=== PATIENT | male | born 1970 | race Caucasian/White ===

== ENCOUNTER 2020-06-20 19:13 | Inpatient (IN) | payer MEDICAID, OTHER ==
[~2020-06-20] VITALS: Ht 167.6 cm; Wt 59.0 kg
[2020-06-20 19:16] VITALS: BP 106/61
[2020-06-20 19:38] LABS: ABSOLUTE NEUTROPHILS 11.8 thou/uL (1.4-8.2); BASOPHILS 0.2 % (0.0-2.0); EOSINOPHILS 0.1 % (0.0-3.0); HEMATOCRIT 40.6 % (42.0-52.0); HEMOGLOBIN 13.8 gm/dL (14.0-18.0); MCH 30.4 pg (26.0-34.0); MCHC 34.1 g/dL (28.0-37.0); MCV 89.2 fL (80.0-100.0); MONOCYTES 2.1 % (1.0-8.0); PLATELET COUNT 210 thou/uL (150-400); POLYS 93.6 % (36.0-66.0); RBC 4.55 mil/uL (4.50-6.00); RDW 13.2 % (10.5-14.5); WBC 12.6 thou/uL (4.0-11.0)
[2020-06-20 19:53] LABS: ANION GAP 16 mmol/L (7-16); BUN 23 mg/dL (7-18); CHLORIDE 113 mmol/L (98-107); CO2 21 mmol/L (21-32); CREATININE 1.9 mg/dL (0.7-1.3); GLUCOSE 143 mg/dL (74-106); POTASSIUM 3.8 mmol/L (3.5-5.1); SODIUM 150 mmol/L (136-145)
[2020-06-20 19:54] LABS: APTT 22.4 Seconds (24.5-32.8); INR 1.2; PROTIME 11.9 Seconds (9.3-11.4)
[2020-06-20 19:59] LABS: ALBUMIN 4.7 g/dL (3.4-5.0); MAGNESIUM 2.2 mg/dL (1.8-2.4); SGOT 20 U/L (15-37); SGPT 23 U/L (30-65); TOTAL BILIRUBIN 1.2 mg/dL (0.2-1.0); TOTAL PROTEIN 8.5 g/dL (6.4-8.2); TROPONIN-I <0.06 ng/mL (<0.06)
[2020-06-21 00:34] LABS: URINE BILIRUBIN NEGATIVE (Negative); URINE BLOOD NEGATIVE (Negative); URINE CLARITY CLEAR; URINE COLOR YELLOW; URINE GLUCOSE-RANDOM* NEGATIVE (Negative); URINE KETONES 1+ (Negative); URINE LEUKOCYTES-REFLEX NEGATIVE (Negative); URINE NITRITE-REFLEX NEGATIVE (Negative); URINE PROTEIN (DIPSTICK) NEGATIVE (Negative); URINE SPECIFIC GRAVITY >= 1.030 (1.005-1.035); URINE UROBILINOGEN 0.2 E.U./dl (0.2-1.0)
[2020-06-21 00:54] LABS: AMP/METHAMP Negative (Negative); BARBITURATES Negative (Negative); BENZODIAZEPINES Negative (Negative); COCAINE Negative (Negative); METHADONE Negative (Negative); OPIATES Negative (Negative); PCP Negative (Negative)
[2020-06-21 05:36] LABS: HEMATOCRIT 33.6 % (42.0-52.0); MCH 30.8 pg (26.0-34.0); MCHC 34.1 g/dL (28.0-37.0); MCV 90.3 fL (80.0-100.0); RBC 3.72 mil/uL (4.50-6.00); RDW 13.5 % (10.5-14.5); WBC 9.4 thou/uL (4.0-11.0)
[2020-06-21 05:48] LABS: CALCIUM 7.9 mg/dL (8.5-10.1); CREATININE 1.1 mg/dL (0.7-1.3); POTASSIUM 3.7 mmol/L (3.5-5.1)
[2020-06-21 06:01] LABS: HEMOGLOBIN 11.5 gm/dL (14.0-18.0)
[2020-06-21 10:36] VITALS: BP 89/54
--- NOTE | 2020-06-21 17:43 | NUR ---
VERONICA CASILLAS (MOM) CALLED WANTING COVID RESULTS, ADVISED OF NEGATIVE RESULTS, PT WANTS TO KNOW IF THIS MEANS THEY CAN VISIT, ADVISED WE'D FOLLOW UP WITH ADMITTING DOCTOR TO FIND OUT
[2020-06-21 18:15] VITALS: BP 81/47
[2020-06-21 19:39] VITALS: BP 111/66
[2020-06-21 20:00] VITALS: BP 95/56
[2020-06-22 03:27] VITALS: BP 96/61
--- NOTE | 2020-06-22 06:30 | NUR ---
RECIEVED CARE OF PT FROM ED, UPON ARRIVAL TO UNIT PT ALERT FOLLOW COMMAND, BUT REMAIN NON-VERBAL WHEN ASK QUESTIONS, BOX MEAL GIVEN, PT ATE 100 %. IV FLUIDS INFUSING WELL. CALLED AND TALKED WITH MOTHER IN DETAIL IN OBTAINING DATA BASE. ASSESSMENT COMPLETED, PT AWAKE THROUHGOUT HOURLY ROUNDS WATCHING TV, CONTINUE NOT TO VERBALIZED WHEN ASKING QUESTIONS, BUT PT WILL EAT AND DRINK WHEN PLACED ON BEDSIDE TABLE. BED ALARM ON FOR SAFETY. NO ACTIVE BLEEDDING NOTED NO STOOL THIS SHIFT.
[2020-06-22 08:06] VITALS: BP 102/60
--- NOTE | 2020-06-22 09:07 | EKG ---
[facility] [place] [address] ELECTROCARDIOGRAM REPORT Name: VINNYBIRD Room #: 356-P ADM IN M.R.#: [id number] Admission: 06/20/20 Attend Phys: Bird Abbasi MD Discharge: Date of : 72 Report #: [id number] THIS REPORT FOR: cc: BHAVNA - Sarah family physician/PCP BHAVNA - No family physician/PCP Tito Maynard MD ~ THIS REPORT FOR: //name// [facility] ED Test Date: 2020-06-20 Test Time: 19:54:56 Pat Name: BIRD CASILLAS Department: Patient ID: SJOMO- Room: Gender: Plumber Supervisor: [facility] : 1970 Requested By: Juan Escobedo Order Number: [id number] MD: iTto Maynard Measurements Intervals [place] Rate: 92 P: 64 KS: 126 QRS: 55 QRSD: 86 T: -73 QT: 357 QTc: 442 Interpretive Statements Sinus rhythm Probable LVH with secondary repol abnrm No previous ECG available for comparison Electronically Signed On 06-22-2020 9:06:59 CDT by Tito Maynard [email or web address] <ELECTRONICALLY SIGNED> By: Tito Maynard MD 06/22/20905 53 53 Tito Maynard MD /NORMA
--- NOTE | 2020-06-22 09:24 | NUR ---
Recieved VM from [facility] die lay out worker for this patient and to return call to her at [phone]. Notified SW on case.
[2020-06-22 10:58] LABS: HEMATOCRIT 32.8 % (42.0-52.0); MCH 30.6 pg (26.0-34.0); MCHC 33.4 g/dL (28.0-37.0); MCV 91.6 fL (80.0-100.0); RBC 3.58 mil/uL (4.50-6.00); WBC 7.4 thou/uL (4.0-11.0)
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
[2020-06-22 16:37] VITALS: BP 105/67
--- NOTE | 2020-06-22 16:52 | NUR ---
PATIENT WILL BE TRANSFERED TO THE FOURTH FLOOR THIS PM. HE HAS A FLAAT AFFECT AND DOES NOT REPLY OR RESPONDS TO QUESTIONS. HE SLEEPS WAKES UP HAVE A DRINK, WATCHES TV AND CAN BE SEEN GIGGLING AT TIME. BUT HE WILL NOT ENGAGE IN ANY DISCUSSION WITH NURSE. RESPIRAITONS ARE NON LABORED. PLEASANT WITH CARES.
[2020-06-22 20:07] VITALS: BP 109/68
--- NOTE | 2020-06-23 02:39 | NUR ---
PT ARRIVED TO THE FLOOR AT 2004. PT IS ALERT TO SELF. PT IS NON VERBAL. VSS. PT IS UNABLE TO VOICE IF HE IS IN PAIN. PT IS ON ROOM AIR. PT HAS A RENEE. YELLOW URINE. PT IS INCONTINENT. PT HAS NOT GOTTEN UP YET. PT HAS PANTOPROZOLE HANGING IN THE ROOM. PT HAS BEEN NPO SINCE MIDNIGHT. I SPOKE WITH PT'S MOTHER AND UPDATED HER. CALLED PT'S MOTHER FROM THE ROOM. PT DOES SAY HELLO TO HER BUT OTHER THAN THAT SAYS NOTHING. I WAS INFORMED THAT THE PT REFUSED THE BOWEL PREP. PT IS ASLEEP IN THE ROOM. WILL CONTINUE TO MONITOR.
[2020-06-23 04:35] VITALS: BP 107/70
[2020-06-23 06:11] LABS: HEMATOCRIT 35.2 % (42.0-52.0); HEMOGLOBIN 11.9 gm/dL (14.0-18.0); MCH 30.4 pg (26.0-34.0); MCHC 33.6 g/dL (28.0-37.0); MCV 90.2 fL (80.0-100.0); RBC 3.9 mil/uL (4.50-6.00); RDW 13.4 % (10.5-14.5)
[2020-06-23 07:17] LABS: ALBUMIN 3.1 g/dL (3.4-5.0); POTASSIUM 3.3 mmol/L (3.5-5.1); TOTAL BILIRUBIN 1.3 mg/dL (0.2-1.0); TOTAL PROTEIN 6.3 g/dL (6.4-8.2)
--- NOTE | 2020-06-23 07:38 | NUR ---
I AGREE WITH ABOVE INSPECTOR TOOL NURSING ASESSMENT AND CHARTING.
[2020-06-23 07:44] VITALS: BP 107/62
--- NOTE | 2020-06-23 09:30 | NUR ---
pt out of room for test/procedure with gi. discussed with hospitalist this am, no anticipated dc over the weekend. cm team passed on (aps worker said not be in agreement with pt returning back with his mom. they said they can get guardianship process started in [place], pretty quick or at least temp guardianship. mom has information to contact personal injury attorney or [place] legal service). dcp: here through the weekend.
[2020-06-23 16:39] VITALS: BP 97/60
--- NOTE | 2020-06-23 19:25 | NUR ---
Received awake on bed. Pt with autism, assisted in ADLs; tried to converse with patient several times but not responding back- fully awake and rousable. On MS, not on telemtry; no signs of chest pain, crushing sensation and heaviness. On room air. Vital signs stable. On nothing per orem; mouth care done. Not on blood sugar monitoring. Incontinent of bowel-checked frequently and changed as needed. With mayes in place- output measured and recorded accordingly; draining well; jeanie care done, jeanie area with redness, skin intact. With 1/2 NS at 80cc/hr, infusing well at L FA- wrapped in coban; with protonix drip running at 25cc/hr as well. Pt scheduled for EGD/Colonoscopy today- as per night RN, pt did not tolerate bowel prep from yesterday- GI RN ADONAY and GI MARINE SURVEYOR Sergio informed re: this as well. Assisted in ADLs. Pt turned on his sides regularly. Consent for procedure obtained from mother via phone, verified by charge nurse. Fetched by GI staff, brought down via bed. Brought back from GI, tolerated procedure well; transferred to room safely. Pt visited by his mother this afternoon- update given; re-informed her about visiting policy as well, requested to talk to - GUSTAVO Arias informed. Night RN informed re: pt's mom's contact number if ever they need to contact her. Pt tolerating meals; no nausea, no vomiting and no abdominal pain noted. To continue monitoring patient.
[2020-06-23 19:44] VITALS: BP 101/62
--- NOTE | 2020-06-24 06:00 | NUR ---
Pt. rested quietly during the night when checked on during frequent rounds. He is alert, but non-verbal. He spent most of the night watching television and was observed laughing at the tv programs. Bed alarm is on.
[2020-06-24 07:40] VITALS: BP 99/61
--- NOTE | 2020-06-24 11:16 | NUR ---
Received awake on bed. Due medications given as prescribed. Tried to converse with patient several times, not talking back; kept patient comfortable. On MS, not on telemtry; no signs of chest pain, crushing sensation and heaviness noted. On room air. Vital signs stable. On regular diet- tolerating well; assisted in setting up, able to eat by himself; no nausea, no vomiting and no abdominal pain noted. Incontinent of bowel, checked frequently and changed as needed. With mayes in place- draining well, output measured and recorded accordingly; jeanie-care done- with redness noted, skin intact. With 1/2 NS at 80cc/hr, infusing well at L FA, with ongoing protonix drip at 25cc/hr. Assisted in ADLs. Able to turn self in bed. Verified with pt's mother yesterday re: home medication- pt not taking any meds at home, verified pharmacy on record- it remains the same as per pt's mom. Falls bundle in place. As per CM, pt most likely to stay here over the weekend, possible for guardianship application. To continue monitoring patient.
[2020-06-24 16:45] VITALS: BP 118/70
[2020-06-24 20:30] VITALS: BP 98/57
--- NOTE | 2020-06-25 00:51 | NUR ---
ASSUMED CARE OF PT AT 1900. PT IS ALERT AND NONRESPONSIVE. PT HAS BEEN SLEEPING SINCE THE START OF THE SHIFT. VSS. AFEBRILE. DOES NOT APPEAR TO BE IN ANY PAIN OR DISCOMFORT. RENEE IN PLACE AND DRAINING. FALL PRECAUTIONS ARE IN PLACE, CALL LIGHT IS WITHIN REACH. WILL CONTINUE TO MONITOR.
[2020-06-25 07:30] VITALS: BP 106/65
[2020-06-25 14:58] VITALS: BP 108/55
[2020-06-25 19:12] VITALS: BP 98/59
--- NOTE | 2020-06-25 19:59 | NUR ---
Alert and silent. talked to the mom. hardly ate anything for breakfast and lunch. had supper when mom was at the bed side. no sign of pain, no n/v.
--- NOTE | 2020-06-26 03:44 | NUR ---
ASSUMED CARE OF PT AT 1900. PT IS AWAKE AND ALERT BUT NONRESPONSIVE TO QUESTIONS. DID HOWEVER ANSWER YES TO WANTING A SNACK BEFORE BEDTIME. THIS WAS ONLY TIME PT COMMUNICATED. ACCIDENTLY REMOVED IV TO LEFT FOREARM WITH CATHETER INTACT. REPLACED IV. CURRENTLY PT IS LYING IN HIS BED AND APPEARS TO BE SLEEPING. FALL PRECAUTIONS ARE IN PLACE, CALL LIGHT IS WITHIN REACH. WILL CONTINUE TO MONITOR.
[2020-06-26 05:54] LABS: HEMATOCRIT 35.5 % (42.0-52.0); HEMOGLOBIN 12.1 gm/dL (14.0-18.0); MCH 30.3 pg (26.0-34.0); MCHC 34.1 g/dL (28.0-37.0); MCV 88.9 fL (80.0-100.0); RBC 3.99 mil/uL (4.50-6.00); RDW 13.1 % (10.5-14.5); WBC 7.1 thou/uL (4.0-11.0)
[2020-06-26 06:02] LABS: CALCIUM 8.3 mg/dL (8.5-10.1); POTASSIUM 3.2 mmol/L (3.5-5.1)
[2020-06-26 07:33] VITALS: BP 107/64
--- NOTE | 2020-06-26 16:20 | NUR ---
Mom brought some documents, voicing that she had talked to Dr. Brooks earlier this morning, Dr. Brooks asked for those document. the staff called [phone], telling the responder that the documents would be in the chart. The responder claimed that he would pass the message to Dr. Brooks.
--- NOTE | 2020-06-26 16:22 | NUR ---
KUN spoke with Ligia at [facility] to follow up on pt's open case. Per Ligia, pt's mother has contacted an ip attorney to begin the guardianship process in [place]. KUN faxed psych consult and progress notes to APS for review. Ligia states that she and her team are meeting today to discuss pt's case. APS is stating that pt should not return to his mother's care at this time due to his recent elopements. APS is working with pt's mother to also apply for [place] Medicaid and will assist with placement. Will need guardianship and Medicaid application in process in order to start looking for placement. KUN discussed case with attending physician. KUN is following to assist as needed with discharge planning.
[2020-06-26 19:31] VITALS: BP 112/69
--- NOTE | 2020-06-26 19:43 | NUR ---
Patient did not have breakfast or lunch no matter how the staff tried to get him eat. had most of the dinner and all the snacks when the mom was here.
[2020-06-27 01:44] LABS: AMP/METHAMP Negative (Negative); BARBITURATES Negative (Negative); BENZODIAZEPINES Negative (Negative); COCAINE Negative (Negative); METHADONE Negative (Negative); OPIATES Negative (Negative); PCP Negative (Negative)
--- NOTE | 2020-06-27 02:35 | NUR ---
CARE ASSUMED AT 1900 PATIENT WAS IN BED WATCHING TV. NO S/S OF PAIN OR DISCOMFORT NOTED. PATIENT PULLING OUT IV X2. PHLEBOTOMY MANAGER NOTIFIED NEW ORDER OF P.O PROTONIX. PATIENT WILL BE ENCOURAGED FLUIDS.URINE COLLECTED FOR LAB. CATH CARE DONE. PATIENT IN BED AWAKE BREATHING REGULAR AND UNLABOURED.
--- NOTE | 2020-06-27 15:48 | NUR ---
Assumed patient care at 0715. Vital signs stable, LSCTA, ABD soft and non-tender, BS x's 4, skin is clean, dry and intact; he does not appear to be in any distress and or pain. Patient has not been wanting to eat, drink and/or take any po medications during this shift. Patient continues to be non-verbal. He has been resting in bed with eyes closed throughout this shift. Mother asked if she could come to visit patient and help to feed him, as he will eat for her (she would not be able to make it until after five this evening). This nurse asked Station Gateman, whom declined to allow this visit. Patient's mother was educated per this; verbalized an understanding. Will continue to monitor this patient.
--- NOTE | 2020-06-27 16:16 | NUR ---
GUSTAVO SPOKE WITH PT'S MOTHER THIS AM AND CONFIRMED THAT THE TWO NUMBERS WE HAVE LISTED FOR HER ARE THE BEST NUMBERS TO REACH HER. DR. FOOTE INDICATED THAT MOTHER HAD PROVIDED ASSESSMENT FROM 2019 AND BASED ON THAT, VISITS WITH PT, AND INFO FROM MOTHER DR. 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 GUSTAVO CALLED AND SPOKE WITH ANALISA WITH [facility] AND INDICATED THAT ABOVE. CM FAXED [facility]'S PROG NOTE FROM YESTERDAY WITH THIS INFORMATION. ANALISA INDICATED THAT THEY HAD DISCUSSED PURSUEING IDD WAIVER PROGRAM BUT THAT MIGHT NOT BE APPROPRIATE WITH NEUROCOG DX. SHE INIDCATED SHE HAD BEEN IN CONTACT WITH PT'S [facility] FOR INFO REGARDING IEP OR SERVICES SUPPORTS RELATED TO SPECIAL EDUCATION SERVICES. CM TO FOLLOW INDICATED WITH DC PLANNING.
[2020-06-27 19:46] VITALS: BP 89/59
[2020-06-27 20:00] VITALS: BP 90/60
--- NOTE | 2020-06-28 04:40 | NUR ---
Pt. rested quietly during the night when checked on during frequent rounds. He has spent about 50% of the shift watching tv in bed. Pt. is non-verbal. He is currently resting quietly in bed. Bed alarm is on.
[2020-06-28 07:27] VITALS: BP 100/64
[2020-06-28 15:35] VITALS: BP 77/51
[2020-06-28 18:02] VITALS: BP 91/53
[2020-06-28 19:35] VITALS: BP 94/57
--- NOTE | 2020-06-29 04:56 | NUR ---
Pt. rested quietly during the night when checked on during frequent rounds. He is non-verbal. Enjoys watching tv at intervals during the shift. Bed alarm is on.
[2020-06-29 07:34] VITALS: BP 94/59
[2020-06-29 15:28] VITALS: BP 98/61
--- NOTE | 2020-06-29 16:18 | NUR ---
PT WAS HAVING MRI OF HEAD THIS AFTERNOON. CM CALLED AND SPOKE WITH PT'T MOTHER REQUESTED NAME OF POLYSOMNOGRAPHIC TECHNICIAN THAT SHE IS WORKING WITH FOR GUARDIANSHIP. SHE INDICATED IT'S DAISY MCKEON . CM TO REACH OUT TO THEM WELL APS TO CONFIRM THEY ARE ASSISTING AND SEE IF THEY NEED ANY DOCUMENTATION.
--- NOTE | 2020-06-29 17:49 | NUR ---
ASSUMED CARE OF PATIENT AT SHIFT CHANGE. ASSESSMENT CHARTED. MEDS GIVEN PER MAR. VSS. PATIENT IS PLEASANT AND WATCHING TV; NON-VERBAL BUT SMILES AND RESPONDS WELL TO SNACKS. PATIENT HAD AN MRI TODAY; ONE TIME DOSE OF LORAZEPAM GIVEN TO PATIENT PRIOR TO PROCEDURE. PATIENT TURNS SELF. URINE OUTPUT ADEQUATE; RENEE INTACT. URINE HAS A FOUL ODOR. PATIENT IS ENCOURAGED TO DRINK MORE FLUIDS. PATIENT DOES NOT APPEAR IN ANY APPARENT PAIN. FALL PRECAUTIONS IN PLACE. WILL CONTINUE TO MONITOR
--- NOTE | 2020-06-29 22:30 | NUR ---
ASSUMED CARE OF PT AT 1900. PT IS AWAKE AND ALERT BUT IS NONRESPONSIVE VERBALLY. LOW DOSE ANTIPSYCHOTIC GIVEN DIRECTED AT HS. SPOKE TO PT MOTHER SHE CALLED FOR AN UPDATE. AT THIS TIME PT IS LYING IN HIS BED AND APPEARS TO BE WATCHING HIS TV. FALL PRECAUTIONS ARE IN PLACE, CALL LIGHT IS WITHIN REACH. WILL CONTINUE TO MONITOR.
[2020-06-30 07:16] VITALS: BP 94/45
--- NOTE | 2020-06-30 15:13 | NUR ---
Received awake on bed. Due medications given as prescribed, able to swallow meds w/o difficulty. On room air. Vital signs stable. On MS, not on telemetry; no signs of chest pain, crushing sensation,and heaviness. On regular diet, tolerating well; no vomiting, no nausea, no abdominal pain noted. With mayes in place- draining well; output measured and recorded accordingly. No IV access noted upon assessment- verified with Dr Khan- to leave off IV for now. Falls bundle in place. Pt turned on his sides regularly, with redness on his buttocks- skin intact. Assisted in ADLs. Assisted in eating and drinking, offered snacks from time to time. Pt seen and examined by Dr Khan, to discontinue IVF and removed mayes- removed mayes as per protocol; pt able to pass urine- incontinent of urine, checked frequently and changed as needed. To continue monitoring patient.
[2020-06-30 15:30] VITALS: BP 90/64
--- NOTE | 2020-06-30 15:54 | NUR ---
CM CALLED ANALISA WITH APS AND LEFT VM. CM CALLED THE ROAD MACHINE OPERATOR PT'S MOTHER IS WORKING WITH DAISY MCKEON HE INDICATED THAT HE HAD EMAILED PT'S MOTHER A STATUTORY FORM THAT NEEDS TO BE COMPLETED BY DR. FOOTE TO FILE PETITION FOR [place] GUARDIANSHIP. CM CALLED PT'S MOTHER AND SHE INDICATED THAT SHE WAS BRING THE FORM TO THE UNIT TODAY. CM NOTIFIED DR. FOOTE AND SHE INDICATED IT COULD BE PLACED IN [employer] MANA[employer] AND SHE WOULD COMPLETE IT FRIDAY. ROAD MACHINE OPERATOR INDICATED THAT SOON IT'S COMPLETED HE CAN FILE IT AND HOPEFULLY SET A COURT DATE IN THE NEXT 14-20 DAYS. CM TO FOLLOW UP WITH MOTHER TO SEE WHERE SHE WOULD LIKE REFERRALS SENT FOR POSSIBLE PLACEMENT BEGINING OF NEXT WEEK. PT WILL REMAIN HERE UNITL [place] GUARDIANSHIP AND MEDICAID ARE OBTAINED.
[2020-06-30 19:22] VITALS: BP 96/67
--- NOTE | 2020-07-01 02:26 | NUR ---
ASSUMED CARE OF PT AT 1900. PT IS ALERT AND AWAKE BUT DOES NOT RESPOND TO STAFF VERBALLY. PT IS IMPULSIVE THIS EVENING WITH TRYING TO GET UP OUT OF BED. INCONT OF URINE. BATH AND BED CHANGE OF LINENS DONE. FALL PRECAUTIONS ARE IN PLACE, CALL LIGHT IS WITHIN REACH. SPOKE WITH MOTHER THIS EVENING. SHE VOICES CONCERNS ABOUT PT NOT COMING BACK TO LIVE WITH HER. SHE ASKED TO SPEAK TO CM. WILL BE PASSING THIS ALONG TO DAY SHIFT. AT THIS TIME, PT IS IN HIS BED LYING DOWN AND APPEARS TO BE WATCHING TV. WILL CONTINUE TO MONITOR.
[2020-07-01 07:54] VITALS: BP 105/76
[2020-07-01 17:34] VITALS: BP 110/81
--- NOTE | 2020-07-01 19:19 | NUR ---
Received awake on bed. Due medications given as prescribed, able to swallo meds w/o difficulty. On room air. Vital signs stable. On regular diet- tolerating well; no nausea, no vomiting and no abdominal pain noted. On MS, not on telemetry; no signs of chest pain, crushing sensation and heaviness. Assisted and encouraged in eating and drinking, offered snacks from time to time. Assisted in ADLs. No IV noted upon assessment- physician ordered to leave it off, no need to re-insert IV for now. Incontinent of bowel and bladder- checked frequently and changed as needed. Falls bundle in place. Given patient a full bath, linen change today. Pt visited by his mother today- update given; she asked for a list of his current medications; telling RN that when his aunt talked to the patient he was telling different things and that he might be watching to much television during this hospital stay. She requested if pt can go on a wheelchair and go outside for fresh air with her- informed pt re: hospital protocol and visitation policy and acknowledged it. No complains and signs of pain observed. Able to turn on his sides. To continue monitoring patient.
[2020-07-01 19:50] VITALS: BP 87/51
--- NOTE | 2020-07-02 04:39 | NUR ---
ASSUMED CARE OF PT AT 1900. PT IS ALERT/AWAKE BUT DOES NOT RESPOND VERBALLY. NO S/S OF PAIN OR DISCOMFORT. VSS. FALL PRECAUTIONS ARE IN PLACE, CALL LIGHT IS WITHIN REACH. WILL CONTINUE TO MONITOR.
[2020-07-02 04:45] VITALS: BP 93/48
[2020-07-02 08:56] VITALS: BP 126/54
--- NOTE | 2020-07-02 14:54 | NUR ---
A gentleman who claimed was the patient's family friend talked to the staff, asked to transfer [facility] patient to another hospital. manager publishing Princess has been reported to, Payton voiced that she would call and talk to the gentleman ([phone]). Dr. Erin black, awaiting response.
--- NOTE | 2020-07-02 15:16 | NUR ---
The satff talked to Dr. Khan, Dr. Khan voiced that we would wait for Alma Delia ([phone]) to make decision what to do; the mom called the staff, asking for Alma Delia's phone number, the staff gave Alma Delia's number to her. The mom voiced that she was afraid [facility] would put the patient into some facility in [place], she preferred to have the son in [place], which was closer to her; she also voiced that she wanted the son to be in [facility] because that facility was closer.
[2020-07-02 15:38] VITALS: BP 112/66
[2020-07-02 19:46] VITALS: BP 92/59
--- NOTE | 2020-07-02 21:40 | NUR ---
PT RESTING IN BED, WATCHING FOOTBALL. PT COMPLIANT WITH HS MEDS. PT ATE ALL OF PUDDING FED TO HIM. PT SMILING WHILE EATING, THEN FLAT AFFECT. PT REMAINS INCONTINENT AND BED ALARM ON. PT IS NOT VERBAL.
[2020-07-03 05:08] VITALS: BP 95/65
[2020-07-03 07:27] VITALS: BP 77/58
[2020-07-03 16:31] VITALS: BP 91/62
--- NOTE | 2020-07-03 19:51 | NUR ---
Assumed pt care at 7am.Pt in bed sleeping most of the time till lunch time. Assessment completed.vss.Recieved call from pt's mom and family friend. Updates given.Pt finally woke up at noon and ate lunch.Ativan held at am and noon but given at dinner.Fall bundle in place for pt safety.Will continue to monitor.
[2020-07-03 19:59] VITALS: BP 102/54
[2020-07-04 06:59] VITALS: BP 102/58
--- NOTE | 2020-07-04 08:11 | NUR ---
progress pt slept all noc. incontinent of bowel and bladder making large amounts of urine and had a moderate sized soft brown formes stool. refused hs snack but did drink some tea with encouragement po meds given with small bite of applesauce. pt didnt interact with this nurse at all no eye contact, moaning or words. repositioned as needed pt able to reposition self when he wants. continue poc.
--- NOTE | 2020-07-04 09:18 | NUR ---
At 2:53 on Friday07/02/2020 I received a phone call from the nurse of the patient in room 442 requesting a return call to a gentlemen's threatening to bring the police and remove a patient. At approximately 2:53 I returned a call to this gentleman at [phone] who did not give his name and stated he was a family friend and that we were holding the patient against his will. This gentleman had me on speaker phone with the mother of the patient who agreed I could speak and I then explained that we were working with the [facility] shoe caser with contacted us and pursuing guardianship. I also explained that there has been no deemed power of document review attorney or guardian for this individual and they have not been deemed competent to make their own decisions. The gentleman continued and in a threatening tone to osmani the hospital and all members treating the patient as we were illegally holding the patient against his will. Again I reiterated we were following with the [facility] request of guardianship for the mother. The gentleman then began to tell me of all the family members he has that are Judges and everything we are doing is illegal. He then said he would have his attorneys be at [facility] on Friday07/04/2020 so they could physically remove the patient and transfer him to [facility] as the mother wants him to be in a [place] hospital. He wanted to know why the patient was in the hospital and the [place] side if he is a [place] resident? I explained to him that patients come to us from EMS and that we treat them accordingly. I then contacted Jessie Luke in-house legal services professional, and Steven Smith Director of Risk Management and explain all of above to be aware of the situation and will review the case again on Friday. I then contacted [facility] [employer] and notified them that a patient may be attempted to be forcibly removed from the hospital and security noted this. I then contacted the nurse to let her know of all of the above and to contact security immediately if this individual or any individual attempts to remove the patient from the hospital. Also on Friday07/02/2020 I learned that the nurse Miya had given my personal cell number to the mother who left a voicemail at 3:17 PM stating: "Hi this is Eleanor Eng, Bird Eng's mother. I just wanted you to understand I need to have him closer to where I live and if is he placed somewhere I want to make sure that it is [place]. I am concerned about several issues but I wanted you to know that my wish is to be in [facility] Thanks you goodbye". On Friday07/02/2020 I was able to reach he professor of social work on this case Brenda Toussaint at 5:44 PM and alerted her to the above and to submit on Friday a referral to [facility] if in agreement with the [facility] crime prevention worker. On Friday07/03/2020 at approximately [address] with attending Dr. Khan who stated he had just left the patients room with the Mother who was deeply apologetic for the previous days phone call stating this was not her intent to have the call go such array. Case Management will continue to follow the case and work within the confines and direction with the [facility].
--- NOTE | 2020-07-04 11:00 | NUR ---
GUSTAVO TAXT DR. FOOTE THIS AM AND REMINDED HER THAT STATUTORY FORM FROM FEED INSPECTION SUPERVISOR IS IN PT'S WALL REGIONAL COMMERCIAL SALES MANAGER FOR HER TO ASSIST IN COMPLETEING. CM CALLED AND SPOKE WITH ANALISA AT [facility]. CM NOTIFIED HER OF THE EXCHANGE BETWEEN MALE AND MOTHER WITH CM RISK OFFICER FRIDAY. CM ASKED IF SHE WAS AT ALL OPPOSED TO CM SEE IF [facility] WOULD ACCEPT PT IN TRANSFER PER MOTHER'S REQUEST. SHE INDICATED SHE WOULDN'T MIND. CM CALLED LIBRARY HISTORIAN AT [facility] AND FAXED FACESHEET FOR REVIEW. CM TO FOLLOW INDICATED WITH DC PLANNING.
[2020-07-04 14:56] VITALS: BP 101/64
[2020-07-04 20:10] VITALS: BP 101/68
--- NOTE | 2020-07-05 01:39 | NUR ---
ASSUMED PT CARE AT 1910. PT IS ALERT TO SELF. PT DOES NOT HAVE IV ACCESS. PT TAKES MEDICATION WHOLE. PT IS NON RESPONSIVE. PT IS INCONTINENT. PT WAS LAYING IN HIS BED WATCHING TELEVISION. PT IS SLEEPP IN HIS ROOM. WILL CONTINUE TO MONITOR.
[2020-07-05 07:23] VITALS: BP 80/54
[2020-07-05 15:36] VITALS: BP 95/64
--- NOTE | 2020-07-05 18:43 | NUR ---
PT IS AOX1, VSS, PT WAKES UP WATCHES TV. NO SIGNS OF S/S OF DISTESS. BED IN LOW POSITION. WILL CONTINUE TO MONITOR.
[2020-07-05 20:02] VITALS: BP 80/53
--- NOTE | 2020-07-06 03:41 | NUR ---
ASSUMED CARE OF PT AT 1900HRS. PT IS ALERT BUT IS NOT RESPONDING TO ANY QUESTIONS. WALL PRECAUTION IN PLACE. PT IS WATCHED CARTOONS ON TV MOST OF THE SHIFT. PT APPEARS TO BE COMFORTABLE. PT WAS INCT THIS SHIFT. PT HAS A SOFT BP BUT OTHER VSS. WILL CONTINUE TO MONITOR.
--- NOTE | 2020-07-06 10:53 | NUR ---
PT IS AOX1 TO SELF. PT REMAINS NONVERBAL TO STAFF, REFUSED TO WAKE UP TO EAT HIS BREAKFAST FOR NURSE. PT TOOK PILLS WITH A SMALL SIPS OF WATER. WILL CONTINUE TO MONITOR.
--- NOTE | 2020-07-06 14:40 | NUR ---
CM CHECKED IN WIHT DR. FOOTE THIS DAY AND SHE INDICATED THAT SHE WAS ALMOST FINISHED WITH THE STATUTORY PAPERWORK FOR THE PT'S LUG LOADER. ONCE COMPLETED CM TO FAX TO LUG LOADER. CM TO FOLLOW INDICATED WITH DC PLANNING.
[2020-07-06 19:27] VITALS: BP 115/74
--- NOTE | 2020-07-07 00:48 | NUR ---
ASSUMED CARE OF PT AT 1900. PT IS NONVERBAL. SHOWS NO S/S OF PAIN OR DISCOMFORT. SCHEDULED MEDICATION GIVEN DIRECTED. PT ATE A SNACK AT BEDTIME. AT THIS TIME, PT IS LYING IN HIS BED AND APPEARS TO BE SLEEPING. WILL CONTINUE TO MONITOR.
[2020-07-07 07:23] VITALS: BP 87/60
[2020-07-07 15:03] VITALS: BP 148/74; BP 97/69
--- NOTE | 2020-07-07 18:30 | NUR ---
ASSUMED CARE OF PATIENT AT SHIFT CHANGE. ASSESSMENT CHARTED. MEDS GIVEN PER MAR. VSS. PATIENT GOT UP TO BATHROOM TODAY SBA. PATIENT VOIDED AND HAD A BM ON THE TOILET BUT CAN ALSO BE INCONT AT TIMES. PATIENT GOT UP W PT TODAY AND WALKED AROUND UNIT; TOLERATED WELL. PATIENT VOICES NO OTHER NEEDS AND DOES NOT TO BE IN APPARENT DISTRESS. FALL PRECAUTIONS IN PLACE. WILL CONTINUE TO MONITOR.
--- NOTE | 2020-07-08 03:07 | NUR ---
PATIENT ALERT AND ORIENTED TO SELF. HOWEVER, HE UNDERSTANDS WHAT YOU SAY AND IS COOPERATIVE WITH CARE. NON VERBAL AND WILL NOT LOOK AT YOU WHEN YOU ARE TALKING. PATIENT HAS BEEN KNOWN TO GET OOB, HOWEVER, NOT DURING THIS NIGHT OF TIME OF NOTE. THIS NURSE SPOKE TO HIS MOTHER (AUNG CASILLAS) REGARDING HOW HE ATE DURING THE DAY AND TO MAKE SURE HE KNOWS SHE CALLED TONIGHT. THIS WAS RELAYED TO THE PATIENT. RESTING QUIETLY. WILL MONITOR.
[2020-07-08 07:46] VITALS: BP 93/63
[2020-07-08 13:01] VITALS: BP 93/63
--- NOTE | 2020-07-08 14:49 | NUR ---
PT IS DISORIENT, ALERT TO SELF ONLY, AND VSS. PT IS CONTINENT TO BOWEL AND BLADDER AND IMPULSIVE AND LAST BM YESTERDAY. PT DIET IS [facility] SOFT CHOPPED DIET. FALL PRECAUTIONS IN PLACE, WILL CONTINUE TO MONITOR.
[2020-07-08 15:50] VITALS: BP 91/62
[2020-07-08 20:34] VITALS: BP 92/60
[2020-07-09 07:17] VITALS: BP 100/66
--- NOTE | 2020-07-09 15:05 | NUR ---
Assumed pt care at 7am.Assessment completed. vss.Pt was drowsy most of the time but arousable.Pt took his am meds with breakfast.Ate 80% of meals served. Pt refused lunch and med.Pt still waiting for gardianship from court before placement.Fall bundle in place for pt safety.No distress s/s noted.Will continue to monitor.
[2020-07-09 16:25] VITALS: BP 93/62
[2020-07-09 20:00] VITALS: BP 103/58
--- NOTE | 2020-07-10 04:35 | NUR ---
PT IS ALERT TO SELF. PT IS NON VERBAL. PT DOES NOT RESPOND WHEN ASKED ABOUT PAIN. VITAL SIGNS STABLE. PT IS IMPULSIVE AND DOES NOT CALL OUT WHEN GETTING OUT OF BED. WILL CONTINUE TO MONITOR.
--- NOTE | 2020-07-10 07:27 | NUR ---
AGREE WITH ALL CHARTING BY MOISES JACOBS
[2020-07-10 15:01] VITALS: BP 102/69
--- NOTE | 2020-07-10 15:11 | NUR ---
DR. FOOTE HAD COMPLETED THE STATUTORY FORMS THIS AM. GUSTAVO HAD THEM SCANNED AND EMAILED THEM TO WASTEWATER ANALYST LAB ANALYST DAISY MCKEON AT [employer]. CM CALLED AND CONFIRMED HE HAD RECEIVED THEM. CM TO FOLLOW INDICATED WITH DC PLANNING.
[2020-07-10 19:40] VITALS: BP 93/62
--- NOTE | 2020-07-10 20:01 | NUR ---
ASSUMED PT CARE THIS AM. PT VITAL SIGNS STABLE. PT WAS NON-VERBAL ENTIRE SHIFT. PT RECEIVED MEDICATIONS THROUGH APPLESAUCE, AND HAD NO ISSUES TAKING THIS WAY. PT INCONTINENT, AND WAS CHANGED AND CLEANED DURING THE SHIFT. PT WALKED WITH OT TO BATHROOM AND USED BATHROOM FOR OT. BARRIER CREAM APPLIED TO BOTTOM. PT DID NOT CALL FOR ANYTHING DURING ENTIRETY OF SHIFT, BUT WAS CHECKED ON AT LEAST EVERY HOUR. NIGHT NURSE ENDORSED.
--- NOTE | 2020-07-11 02:42 | NUR ---
PATIENT NON VERBAL THIS SHIFT. PATIENT INCONTINENT PERICARE AND BARRIER CREAM APPLIED NEEDED. PATIENT ENCOURAGED FLUIDS.PATIENT IN BED NO S/S OF PAIN OR DISCOMFORT. PATIENT CALM AND COOPERATIVE WITH MEDS AND CARE THIS SHIFT.PATIENT IN BED ASLEEP AT THIS TIME BREATHING REGULAR AND UNLABOURED.
[2020-07-11 05:28] LABS: HEMATOCRIT 39.3 % (42.0-52.0); HEMOGLOBIN 13.1 gm/dL (14.0-18.0); MCH 29.5 pg (26.0-34.0); MCHC 33.3 g/dL (28.0-37.0); MCV 88.4 fL (80.0-100.0); RBC 4.44 mil/uL (4.50-6.00); RDW 13.7 % (10.5-14.5); WBC 6.8 thou/uL (4.0-11.0)
[2020-07-11 05:40] LABS: CALCIUM 9.3 mg/dL (8.5-10.1); CREATININE 1.1 mg/dL (0.7-1.3); MAGNESIUM 2.1 mg/dL (1.8-2.4); POTASSIUM 3.8 mmol/L (3.5-5.1)
[2020-07-11 07:31] VITALS: BP 107/66
--- NOTE | 2020-07-11 11:31 | NUR ---
Assumed pt care at 7am.Pt in bed sleeping and woke up at breakfast time. Assessment completed.vss.Rn fed pt at breakfast.Ate 100% including supplement. Dr Khan here,no new order noted.Pt still waiting for guardianship for placement.No distress s/s noted.Fall bundle in place.Will continue to monitor.
--- NOTE | 2020-07-11 15:41 | NUR ---
CM CALLED AND UPDATED PT'S MOTHER THIS AM. CM NOTIFIED HER THAT P[employer] HAD BEEN SENT TO SURVEY SUPERINTENDENT YESTERDAY. SHE INDICATED THAT SHE HAD RECEIVED LETTER FROM SOCIAL SECURITY THAT NEEDS SIGNED. SHE WILL BEING IT IN TOMORROW. CM TO FOLLOW INDICATED WITH DC PLANNING.
[2020-07-11 20:08] VITALS: BP 93/61
--- NOTE | 2020-07-12 06:53 | NUR ---
PROGRESS PT AWAKE BUT NON-VERBAL TOOK MEDS WITH SOME COAXING INCONTINENT OF BOWELS AND BLADDER VOIDED X 3 LAST NIGHT NO BM. VSS SKIN C/D/I NO SKIN BREAKDOWN NOTED. CONTINUE TO MONITOR.
[2020-07-12 08:00] VITALS: BP 83/56
--- NOTE | 2020-07-12 12:26 | NUR ---
Pt in bed sleeping on and off as usual.Assessment completed.vss but low bp noted. Pt was asymptomatic.Assisted with tray setup at breakfast. Ate 100% including ensure.Pt ambulated in hallways with therapist and ate ice cream after walking.Mom here to visit and updates given.Pt still waiting for guardianship from the court.No changes in status and no distress s/s noted. Will continue to monitor.
--- NOTE | 2020-07-12 15:18 | NUR ---
CM MET WITH PT'S MOTHER THIS AM. SHE PROVIDED CM WITH COPY OF PT'S SOCIAL SECURITY CARD AND INDICATED THAT ANALISA WITH APS HAD A COPY OF HIS CERTIFICATE CM TO REACH OUT TO HER TO GET COPY FOR [place] FOR USE IN [place]. PT'S MOM INDICATED THAT LAWER RENETTA ABDI WITH [employer] IS NEEDING CLINICAL DOCUMENTATION RELATED TO CRIMINAL CASE. SHE PROVIDED THEIR PHONE NUMBER CM CALLED AND EMAIL . CM CALLED AND GOT . CM TO ATTEMPT FOLLOW UP PC. CM TO FOLLOW INDICATED WITH DC PLANNING.
[2020-07-12 16:00] VITALS: BP 98/66
[2020-07-12 20:32] VITALS: BP 91/61
--- NOTE | 2020-07-13 03:39 | NUR ---
ASSUMED PT CARE AT SHIFT CHANGE. PT IS ALERT TO SELF. PT DOES NOT HAVE IV ACCESS. PT HAS TO BE RE DIRECTED MULTIPLE TIMES UNSUCCESSFULLY. PT DOES NOT CALL OUT APPROPRIATELY. PT IS IMPULSIVE AND ALMOST FAIL FIVE TIMES SO FAR. PT HAS MADE HIMSELF FAMILIAR WITHT THE BACK STAIRS. PT HAS TRIED TO GO DOWN THE STAIRS THREE TIMES SO FAR. PT HAS GOTTEN AGRESSIVE WITH THE STAFF REFUSING TO BE REDIRECTED. I CALLED THE PRODUCTION MAINTENANCE MECHANIC SLITTING MACHINE OPERATOR HELPER AND SHE GOT HIM ALPRAZOLAM THEN HALPERIDOL. PT IS STILL IMPULSIVE. I NOTIFIED THE PATERSON SOUPERVISER OF MY CONCERNS AND THE NEED FOR A SITTER. WILL CONTINUE TO MONITOR.
[2020-07-13 07:04] VITALS: BP 103/73
[2020-07-13 15:17] VITALS: BP 88/56
--- NOTE | 2020-07-13 16:45 | NUR ---
PT ALERT TO SELF, NON VERBAL, VSS, NO SIGNS OF PAIN. PATIENT SLEPT FOR MOST OF SHIFT. AUTOMATION ARCHITECT ABLE TO GET PATIENT UP AND TO BATHROOM. PATIENT TOOK PILLS WHOLE. NO SIGNS OF DISTRESS. WILL CONTINUE TO MONITOR.
[2020-07-13 21:11] VITALS: BP 87/57
--- NOTE | 2020-07-14 03:51 | NUR ---
ASSUMED PT CARE AT 1915. PT HAS NO IV ACCESS. PT IS NON VERBAL. I CALLED HOUSE SUPERVISER WITH MY CONCERNS FOR THE NEED OF A SITTER. SITTER WAS DC'D DUE TO THE PT SLEEPING IN THE ROOM AND NOT [place] IMPULSIVE FOR THE FIRST PORTION OF THE SHIFT. PT IS INCONTINENT. PT HAS RECEIVED A FULL BED CHANGE AND RECEIVED MAIA CARE. PT IS SLEEPING IN ROOM WIITH FALL BUNDLE IN PLACE. PT TAKES MEDS WHOLE AFTER BEING EDUCATED ON THE IMPORTANCE OF TAKING HIS MEDICATIONS. WILL CONTINUE TO MONITOR.
[2020-07-14 07:12] VITALS: BP 108/71
--- NOTE | 2020-07-14 12:11 | NUR ---
PT ORIENTED TO SELF, VSS, NO APPARENT PAIN. PATIENT EATING MORE, 25% OF BREAKFAST AND ENSURE. PATIENT IN BED SLEEPING ON AND OFF. PATIENT NOT IMPULSIVE. NO SIGNS OF DISTRESS. WILL CONTINUE TO MONITOR.
[2020-07-14 14:49] VITALS: BP 81/53
[2020-07-14 19:36] VITALS: BP 87/59
--- NOTE | 2020-07-14 23:46 | NUR ---
ASSUMED CARE OF PT AT 1900. PT IS NONVERBAL AND APPEARS TO BE EXPERIENCING INCREASED RESTLESSNESS AND ANXIETY. PT IS IMPULSIVE AND HAS GOTTEN OUT OF BED UNASSISTED 4 TIMES SINCE THE START OF SHIFT. FITTER HELPER NOTIFIED. ORDERS GIVEN. AT THIS TIME, PT IS LYING IN HIS BED AND APPEARS TO BE WATCHING TV. STAFF IN ROOM TO ENSURE SAFETY OF PT UNTIL PT APPEARS TO BE LESS RESTLESS AND IMPULSIVE. FALL PRECAUTIONS ARE IN PLACE, CALL LIGHT IS WITHIN REACH. WILL CONTINUE TO MONITOR.
[2020-07-15] VITALS (11 sets, daily range): BP systolic 93–196; BP diastolic 62–109
--- NOTE | 2020-07-15 14:56 | NUR ---
Assumed care of pt. at 0700. Patient combative and agitated. Pt. got out of bed and tried to leave the room. Pt. attempted to stomp on foot of LABORER COOK HOUSE that was attempted to get patient back to bed. Once placed back in bed, pt. attempted to get out of bed several more times. Physician notified, sitter ordered. Pt slept and refused to take any medication the rest of the day. Fall precautions in place, sitter left after several hours of non-activity.
--- NOTE | 2020-07-15 23:52 | NUR ---
ASSUMED CARE OF PT AT 1900. PT IS NONVERBAL AND LETHARGIC. DOES NOT APPEAR TO BE IN ANY DISTRESS OR DISCOMFORT. VSS. AFEBRILE. INCONTINENT OF BOWEL AND BLADDER. MEDICATIONS GIVEN DIRECTED PER MAR. FALL PRECAUTIONS ARE IN PLACE, CALL LIGHT IS WITHIN REACH. WILL CONTINUE TO MONITOR.
--- NOTE | 2020-07-16 13:15 | NUR ---
Assumed care of pt. at 0700. Pt. was calm and but non-responsive to conversation and questions. Pt. ate full breakfast, and medication. Patient became tired after this and slept for most of the afternoon. Fall precautions in place.
[2020-07-16 15:18] VITALS: BP 75/47
[2020-07-16 20:08] VITALS: BP 94/64
--- NOTE | 2020-07-17 02:08 | NUR ---
patient non verbal. patient encouraged fluids. patient on elopment risk. patient waiting for placement.fall precaution in place. patient in bed asleep at this time breathing regular and unlaboured.
[2020-07-17 07:43] VITALS: BP 84/57
--- NOTE | 2020-07-17 14:09 | NUR ---
Nutrition: No weight to assess since 06/29. REC obtain new weight.
[2020-07-17 16:00] VITALS: BP 100/61
[2020-07-17 19:10] VITALS: BP 92/61
--- NOTE | 2020-07-17 19:43 | NUR ---
Assumed pt care at 7am.Pt in bed sleeping on and off.Assessment completed.vss. Pt ate breakfast and dinner but refused lunch.Dr Khan here,no new order noted. Pt still waiting on guardianship from court .Pt has moderate soft bm today. Pericare and complete bed change done. Will continue to monitor.
--- NOTE | 2020-07-18 05:06 | NUR ---
Assumed pt care at 1900. Pt's awake and non verbal but will answer yes/no at times. VSS. Took HS meds w/o problems. Pt has not attempted to elope this shift,or being impulsive. Fall precautions in place,resting quietly in bed at this time.
[2020-07-18 07:30] VITALS: BP 91/58
--- NOTE | 2020-07-18 13:59 | NUR ---
GUSTAVO WAS NOTIFIED THAT ANALISA WITH [place] [employer] INDICATED THAT SHE WAS LEAVING AND THAT HER BOOKMOBILE DRIVER LARY Disla WOULD BE TAKING OVER HIS CASE. HER CONTACT NUMBER IS . CM CALLED AND LEFT A VM THIS DAY. CM TO FOLLOW UP WITH PT'S MOTHER AND CLERICAL TRANSCRIBER TO SEE IF THERE HAD BEEN ANY DETERMINATION OF COURT DATE.
--- NOTE | 2020-07-18 14:49 | NUR ---
ASSUMED PT CARE THIS AM. PT VITAL SIGNS STABLE, PT NON-VERBAL. PT HAS SLEPT MOST OF DAY. PT EATS MEALS WHEN FOOD IS SET UP. WILL CONTINUE TO MONITOR.
[2020-07-18 15:43] VITALS: BP 99/70
[2020-07-18 20:34] VITALS: BP 108/83
--- NOTE | 2020-07-19 03:52 | NUR ---
Assumed pt care at 1900. Pt alert and nonverbal,coperative with cares. Took HS meds w/o any problems. Incontinent of bladder through the shift, pericare done PRN and moisture barrier applied. Fall precauitons in place,pt resting quietly eyes closed no distress noted will continue to monito pt.
[2020-07-19 08:56] VITALS: BP 100/71
[2020-07-19 09:16] VITALS: BP 100/71
--- NOTE | 2020-07-19 14:50 | NUR ---
PATIENT OOB AT APPROX 1100. VERY DIFFICULT TO REDIRECT AND CONSISTENTLY TRIES TO ELOPE. PHYSICIAN NOTIFIED AND ASKED FOR CHEMICAL RESTRAINTS; PATIENT WENT INTO ANOTHER PATIENTS ROOM AND WOULD NOT LEAVE. SECURITY WAS CALLED AND HAD TO HOLD PATIENT DOWN. PSYCHIATRIST PAGED; AQUATIC PHYSIOTHERAPIST NOTIFIED OF NEED OF 1:1 SITTER
--- NOTE | 2020-07-19 16:36 | NUR ---
CM HADN'T HEARD BACK FROM MATTING PRESS TENDER OR LARY AT [facility] OF THIS NOTE. PT WAS MORE ACTIE THIS AFTERNOON AND WAS GETTING UP AND DOWN FROM BED AND AMBULATING TO AND FROM NURSES STATION. SECURITY WAS CALLED PT HAD GONE INTO ANOTHER PT'S ROOM. PT WAS REDIRECTED. PHYSICIANS NOTIFIED AND NEDICATIONS ADMINISTERED. PT IS STILL AWAITING [place] GUARDINSHIP AND NEXT STEPS FOR PLACEMENT UPON DC. CM TO FOLLOW INDICATED WITH DC PLANNING.
--- NOTE | 2020-07-19 18:19 | NUR ---
PATIENT CONTINUES TO BE AGITATED AND COMBATIVE AT TIME. NEED FOR SITTER 1:1 STILL APPARENT. WILL CONTINUE TO MONITOR
--- NOTE | 2020-07-19 18:45 | NUR ---
PATIENT HAS A SITTER 1:1 AN ALTERNATIVE TO MECHANICAL RESTRAINTS CHEMICAL RESTRAINTS DID NOT WORK.
[2020-07-19 19:16] VITALS: BP 101/72
[2020-07-20 07:34] VITALS: BP 106/72
--- NOTE | 2020-07-20 07:54 | NUR ---
Assumed pt acare at 1900. Pt alert/awake, but none verbal. Has a sitter in room, pt impulsive and combative with sitter in room. Medicated per EMAR with no relief noted at night;FIELD AGENT notified and gave orders for Haldol IM,medication given to pt with some relief noted,remained calm watching TV for some time at night. Incontinent of bladder,pericare done as needed. Fall precautions/sitter remain in place.
--- NOTE | 2020-07-20 11:38 | NUR ---
ASSUMED CARE OF PATIENT AT SHIFT CHANGE. ASSESSMENT CHARTED. MEDS GIVEN PER DEC. VSS. NO IV ACCESS. PATIENT IS CALMER THAN PREVIOUSLY CHARTED BUT GOT AGITATED WHEN NICOTINE PATCH WAS APPLIED. NEW MED REGIMEN TO BE MONITORED TODAY. SITTER IN PLACE; 1:1 CARE. PATIENT LYING IN BED NOW BUT OFTEN TRIES TO GET OUT OF BED. PATIENT IS FREQUENTLY MONITORED. MEDICALLY STABLE; STILL WAITING ON GUARDIANSHIP FOR PLACEMENT. WILL CONTINUE TO MONITOR AND FOLLOW POC
--- NOTE | 2020-07-20 14:13 | NUR ---
CM CALLED TRIMMING INSPECTOR WHO IS WORKING WITH MOTHER RELATED TO GUARDIANSHIP TO ASK IF HE HAS ANY UPDATES. CM LEFT VM. CM CALLED AND LEFT VM FOR LARY AT [facility]. CM TO FOLLOW INDICATED WITH DC PLANNING.
[2020-07-20 15:09] VITALS: BP 110/59
[2020-07-20 19:09] VITALS: BP 102/71
--- NOTE | 2020-07-21 05:07 | NUR ---
Pt. rested quietly during the night when checked on during frequent rounds. He has been cooperative with care during the night. Incontinent of urine and jeanie care given. Sitter at the bedside continues as patient is a high elopement risk.
[2020-07-21 07:00] VITALS: BP 91/63
[2020-07-21 07:14] VITALS: BP 91/63
--- NOTE | 2020-07-21 10:12 | NUR ---
ASSUMED CARE OF PATIENT AT 0700. ASSESSMENT CHARTED. MEDS GIVEN PER MAR; SITTER DISCONTINUED PER DR. RENEE. LYING IN BED W EYES CLOSED AT TIME; AWAKE ONLY TO EAT; CAN GET AGITATED. NEAR NURSES STATION; FALL PREACAUTIONS IN PLACE. WILL CONTINUE TO MONITOR AND FOLLOW PLAN OF CARE.
[2020-07-21 19:44] VITALS: BP 104/70
--- NOTE | 2020-07-22 05:48 | NUR ---
Pt. has been lethargic most of the shift and was unable to take his meds. VSS. He did wake up during the night for about an hour and watched tv. He also ate some yogurt and drank his supplement. Did hs blood sugar and it was at 143. Pt. resting quietly in bed at this time. Bed alarm is on.
[2020-07-22 07:59] LABS: ALBUMIN 3.9 g/dL (3.4-5.0); CALCIUM 9.6 mg/dL (8.5-10.1); CREATININE 0.9 mg/dL (0.7-1.3); POTASSIUM 3.6 mmol/L (3.5-5.1); TOTAL BILIRUBIN 0.7 mg/dL (0.2-1.0); TOTAL PROTEIN 8.1 g/dL (6.4-8.2)
[2020-07-22 09:15] VITALS: BP 109/75
--- NOTE | 2020-07-22 10:08 | NUR ---
pt very drowsy this morning, will give medications when pt is able to stay awake and safely take medications
[2020-07-22 16:06] VITALS: BP 113/71
[2020-07-22 19:12] VITALS: BP 104/74
--- NOTE | 2020-07-23 00:28 | NUR ---
ASSUMED CARE OF PT AT 1900. PT IS A/O X1. NONVERBAL. APPEARS TO BE VERY FLAT AND WITHDRAWN. ROOM AIR. INCONT OF BOWEL AND BLADDER. WOULD NOT ANSWER TO YES/NO QUESTIONS BUT DOES REACH FOR SNACKS, AND DRINKS WHEN GIVEN. PT AT THIS TIME IS LYING IN HIS BED AND APPEARS TO BE SLEEPING. FALL PRECAUTIONS ARE IN PLACE, CALL LIGHT IS WITHIN REACH. WILL CONTINUE TO MONITOR.
[2020-07-23 08:00] VITALS: BP 108/76
[2020-07-23 19:10] VITALS: BP 123/56
--- NOTE | 2020-07-24 05:12 | NUR ---
ASSUMED PT CARE AROUND 1930. RECEIVED SLEEPING IN BED AROUSABLE. VSS. DOES BECOME IMPULSIVE TIME TO TIME. DIFFICULT TO ORIENT PT NON VERBAL WITH PREEXISTING CONDITION. NO S/S ACUTE DISTRESS NOTED OR REPORTED AT THIS TIME. WILL CONT TO MONITOR FOR ANY CHANGES IN CONDITION.
[2020-07-24 06:59] VITALS: BP 86/57
[2020-07-24 15:33] VITALS: BP 95/67
--- NOTE | 2020-07-24 18:11 | NUR ---
ASSUMED CARE OF PATIENT AT SHIFT CHANGE. ASSESSMENT CHARTED. MEDS GIVEN PER MAR; CRUSHED IN PUDDING. PATIENT WAS LETHARGIC AT THE BEGINNING OF SHIFT AND AWOKE IN THE AFTERNOON. PATIENT GETS UP IF WET OR HAS URGE TO VOID/HAVE A BM. OTHERWISE IS MILDLY AGITATED IF BOTHERED. PATIENT HAD AN EEG DONE TODAY BUT WAS NOT COMPLETED D/T AGITATION. PATIENT WAS OBSERVED HOLDING HIS HEAD ON BOTH SIDES. PATIENT WAS ASKED IF WAS IN PAIN AND HE CONTINUED TO HOLD HIS HEAD. PRN TYLENOL WAS ADMINISTERED. PATIENT WAS IN BED FOR MOST OF THE DAY AND SEEMS TO BE BORED. NEW ORDERS PER DR. CARLOS Kelly. CURRENTLY IN BED AND APPEARS IN NO APPARENT DISTRESS. WILL CONTINUE TO MONITOR AND FOLLOW PLAN OF CARE
[2020-07-24 19:05] VITALS: BP 100/57
--- NOTE | 2020-07-24 19:21 | NUR ---
I AGREE WITH NURSING ASSESSMENT AND NURSING NOTE DONE BY BRITANY/GENERAL ACCOUNTING MANAGER.
--- NOTE | 2020-07-25 07:43 | NUR ---
ASSUMED PT CARE AROUND 1930. IMPULSIVE AT TIMES. VSS. NON-VERBAL AND KEPT CLOSE NURSING STAION. NO S/S ACUTE DISTRESS NOTED OR REPORTED AT THIS TIME. CARE TRANSFERRED TO AM RN AT THIS TIME.
[2020-07-25 09:17] VITALS: BP 97/71
--- NOTE | 2020-07-25 12:56 | NUR ---
Received awake on bed. Due medications given as prescribed, able to swallow meds with apple sauce w/o difficulty. On room air. Vital signs stable. On MS, not on telemetry; no signs of chest pain, crushing sensation and heaviness. On mechanically soft diet- assisted and encouraged in eating and drinking; no nausea, no vomiting and no abdominal pain. Incontinent of bowel and bladder, checked frequently and changed as needed. Falls bundle in place. No IV noted, physician aware. Assisted in ADLs. Able to turn in bed. Still a/w guardianship. No signs of pain noted upon assessment. To continue monitoring patient.
[2020-07-25 15:14] VITALS: BP 100/61
[2020-07-25 19:47] VITALS: BP 103/71
--- NOTE | 2020-07-26 07:35 | NUR ---
Assumed pt care at 1900. Alert to self only,nonverbal but rubling sounds at times then looks away. VSS.Incontinent of B&B,pericare done and moisture barrier applied as needed. Pt has no IV access. Fall precautions in place,frequent checks done on pt.
[2020-07-26 08:27] VITALS: BP 104/71
--- NOTE | 2020-07-26 11:47 | NUR ---
Received awake on bed. Due medications given as prescribed, able to swallow meds mixed with pudding. On MS, not on telemetry; no signs of chest pain, crushing sensation and heaviness. On room air. Vital signs stable. On Mechanically soft diet, compliant with supplements- assisted in eating and drinking. Incontinent of bowel and bladder, checked frequently and changed as needed. No IV noted- physician aware.
--- NOTE | 2020-07-26 13:50 | NUR ---
LARY Forrester WITH [employer] CALLED AND INDICATED THAT GUARDIANSHIP HAD BEEN FILED YESTERDAY IN [place] IN [facility] [id number]. CM FOLLOWING REGARDING GUARDIANSHIP. [employer] MEDICAID, AND [place] PLANNING.
[2020-07-26 14:12] VITALS: BP 106/75
[2020-07-26 19:52] VITALS: BP 113/73
--- NOTE | 2020-07-27 02:40 | NUR ---
Assumed pt care at 1900. Awake and alert to self,non verbal. VSS. Up with AX1,gets impulsive at times and keeps trying to get up w/o help. Took HS meds in pudding w/o problems. Incontinent of bladder,moisture barrier applied. Fall precautions in place,frequent monitoring on pt.
[2020-07-27 10:11] VITALS: BP 141/68
--- NOTE | 2020-07-27 10:35 | EEG ---
[facility] [place] [address] ELECTROENCEPHALOGRAM Name: BIRD CASILLAS Room #: 451-P ADM IN M.R.#: [id number] Admission: 06/20/20 Attend Phys: Bird Abbasi MD Discharge: Date of : 72 Report #: [id number] THIS REPORT FOR: //name// CC: FAM physician/PCP Bird Abbasi DATE OF SERVICE: 07/24/2020 This patient's EEG was done to evaluate for altered mental status. EEG was done by placing the electrode by standard 10-20 system of electrode placement. Both referential and sequential montages were used for recording. Background activity in this patient's EEG is difficult to determine. It is intermixed with a lot of artifact. It does appear to be about 7-8 Hz, but it is intermixed with theta range slowing. Photic stimulation is unremarkable. Throughout the record, no active epileptiform activity was noticed. IMPRESSION: This is a suboptimal EEG because lot of artifact is present during this EEG. It does appear to be some intermixed slowing on both sides, which is a nonspecific finding, which can occur with encephalopathy, effect of psychotropic medication, dementia, etc. Clinical correlation is recommended. <ELECTRONICALLY SIGNED> By: Humphrey De La Torre MD 07/27/20 1035 [id number] Humphrey De La Torre MD /nt
--- NOTE | 2020-07-27 14:39 | NUR ---
CM RECEIVED PHONE CALL FROM DAISY MCKEON SENIOR BUSINESS BROKER ASSISTING PT'S MOTHER WITH GUARDIANSHIP AND HE INDICATED THAT PT'S APPOINTED SENIOR BUSINESS BROKER IS NAMED GRETEL MCGOWAN AND THAT HE NEEDS TO VISIT PT TODAY . CM NOTIFIED VP STRATEGY. CM TO FOLLOW INDICATED WITH DC PLANNING.
[2020-07-27 19:20] VITALS: BP 108/72
--- NOTE | 2020-07-28 02:46 | NUR ---
PATIENT IS NON VERBAL. PATIENT HAS BEEN INCONTINENT THIS SHIFT PERICARE AND BARRIER CREAM APPLIED NEEDED. PATIENT ENCOURAGED FLUIDS. PATIENT HAD INCREASED ANXIETY PRN HALDOL GIVEN. FALL PRECAUTION IN PLACE. PATIENT IN BED ASLEEP AT THIS TIME BREATHING REGULAR AND UNLABOURED.
[2020-07-28 07:45] VITALS: BP 112/79
[2020-07-28 11:34] VITALS: BP 104/69
--- NOTE | 2020-07-28 14:36 | NUR ---
PT NON VERBAL, BUT WAS VERY INPULSIVE THIS MORNING TRYING TO GET OUT OF BED. VSS. PT DOES NOT APPEAR TO BE IN ANY PAIN. PT HAS POOR APPETITE TODAY. PT DID TAKE MEDICATIONS. NO ACUTE DISTRESS NOTED. WILL CONTINIUE TO MONITOR.
[2020-07-28 19:17] VITALS: BP 111/69
--- NOTE | 2020-07-29 02:42 | NUR ---
PATIENT IS NON VERBAL THIS SHIFT. PATIENT ENCOURAGED SNACKS AND ENSURE THIS SHIFT. PATIENT INCONTIENT THIS SHIFT PERICARE AND BARRIER CREAM APPLIED NEEDED. FALL PRECAUTION IN PLACE. PATIENT IN BED ASLEEP AT THIS TIME BREATHING REGULAR AND UNLABOURED.
[2020-07-29 08:00] VITALS: BP 145/97
--- NOTE | 2020-07-29 14:27 | NUR ---
PT SLEEPING THIS SHIFT. NONVERBAL. PERICARE GIVEN. NO COMPLAINTS FROM PATIENT. Q2 TURNS. AWAITING GUARDIAN SHIP. MEDS CRUSHED WITH APPLESAUCE. PT HAS BM SMEARS. INCONTINENT TO BOWEL AND BLADDER. NICOTINE PATCH ON THE L. ARM. FALL PROTOCOL IN PLACE. CALL LIGHT IN REACH.
[2020-07-29 16:44] VITALS: BP 99/68
[2020-07-29 19:36] VITALS: BP 96/65
[2020-07-29 21:42] LABS: HEMATOCRIT 43.8 % (42.0-52.0); HEMOGLOBIN 14.9 gm/dL (14.0-18.0); MCH 30.8 pg (26.0-34.0); MCHC 34.1 g/dL (28.0-37.0); MCV 90.3 fL (80.0-100.0); RBC 4.85 mil/uL (4.50-6.00); RDW 13.7 % (10.5-14.5); WBC 7.7 thou/uL (4.0-11.0)
[2020-07-29 21:48] LABS: CALCIUM 9.7 mg/dL (8.5-10.1); POTASSIUM 4.1 mmol/L (3.5-5.1)
--- NOTE | 2020-07-30 04:45 | NUR ---
Pt. has been lethargic all shift and unable to arouse. He had a elevated temperature. Nita SETHI called and notified of pt. lethargy and increased temp. (see orders in cpoe). Tylenol suppository given and temp did decrease. He has been incontinent and jeanie care given. Bed alarm is on.
[2020-07-30 08:07] VITALS: BP 120/73
--- NOTE | 2020-07-30 12:20 | NUR ---
PT CARE ASSUMED AT 0700. PT ASLEEP AND HARD TO ARROUSE. WILL NOT OPEN HIS EYES. TEMPERATURE OF 101. MD INFORMED. CHEST X-RAY ORDERED. ALL MEDS ON HOLD. LORAZEPAM IM ORDERED FOR AGITATION. COOL WASH CLOTHS APPLIED TO BOTTOM OF FEET, ARMPITS, AND FORHEAD. PT STILL SEDATED. Q2 TURNS. BED BATH GIVEN. FALL PROTOCOL IN PLACE. CALL LIGHT IN REACH
[2020-07-30 12:53] LABS: HEMATOCRIT 45.9 % (42.0-52.0); HEMOGLOBIN 15.1 gm/dL (14.0-18.0); MCH 29.7 pg (26.0-34.0); MCHC 32.9 g/dL (28.0-37.0); MCV 90.3 fL (80.0-100.0); RBC 5.08 mil/uL (4.50-6.00); RDW 13.9 % (10.5-14.5); WBC 6.8 thou/uL (4.0-11.0)
[2020-07-30 16:32] VITALS: BP 113/78
[2020-07-30 20:37] VITALS: BP 104/70
--- NOTE | 2020-07-31 04:22 | NUR ---
Pt. has been non-verbal all shift and poor to respond to touch or verbal stimuli. Elevated temperature and prn tylenol suppository given with little relief of fever (see emar). Pt. turned and repositioned. Incontinent of urine. Rested quietly all shift. Bed bath given with oral care. Bed alarm is on.
[2020-07-31 08:05] VITALS: BP 120/73
--- NOTE | 2020-07-31 08:55 | NUR ---
UPON AM ASSESSMENT, RN FOUND PT TO BE IN WHAT APPEARS TO BE A CATATONIC STATE. HOSPITALIST CALLED AND MADE AWARE. HOSPITALIST STATES HE IS IN A CATATONIC STATE AND THAT HE SHOULD BE GETTING SCHEDULED LORAZEPAM. SCHEDULED LORAZEPAM WAS ON HOLD, SEE MAR, PHYSICIAN STATES HE WILL ENTER ORDER FOR SCHEDULED IV LORAZEPAM AND WILL ROUND ON PT SOON. PT DOES HAVE FEVER OF 101.0 AND MADE AWARE OF THAT AT THIS TIME.
--- NOTE | 2020-07-31 14:30 | NUR ---
PT WITH FEVER THIS DAY. WBC AND CULTURES NORMAL. UA TO BE COLLECTED. WE ARE AWAITING [place] GUARDIANSHIP AND LIKELY PLACEMENT. CM TO FOLLOW INDICATED WITH DC PLANNING.
[2020-07-31 20:25] VITALS: BP 105/79
--- NOTE | 2020-07-31 20:56 | NUR ---
0852- UPON DETAIL SUPERVISOR FOUND PT TO BE NOT RESPONDING TO VERBAL STIMULI OR PAINFUL STIMULI. PT HAD NO REACTION OF ANY KIND TO EITHER. VSS OTHERWISE. RN CALLED HOSPITALIST AND REPORTED FINDINGS. STATES PT IS IN A CATATONIC STATE. NEW ORDERS OF IV LORAZAPAM RECIEVED. DR. FOOTE ROUNDED AND UPDATED, SHE TOLD RN THAT PT HAS HISTORY OF HAVING THESE CATATONIC LIKE STATES. SHE STATED HE USUALLY WAKES UP AFTER LUNCH TIME AND STAYS UP ALL NIGHT. PT DID WAKE UP AFTER LUNCH AND BEGAN BEING VERY AGITATED PULLING AT IV AND TRYING TO CLIMB OUT OF BED. IV WRAPPED IN COBAN TO PROTECT IV. PT SAT UP IN BED AND GIVEN PLAYING CARDS DIVERSION. PT SORTED CARDS AND REMAINED CALM REST OF SHIFT.
--- NOTE | 2020-08-01 04:03 | NUR ---
ASSUMED PT CARE AROUND 1930. ALERT AND AWAKE. DOES NOT ANSWER ANY QUESTIONS OR FOLLOW ANY DIRECTIONS AT THIS TIME. PT DISCONTINUED IV HIMSELF MULTIPLE TIME. PER GLAZE GRINDER, OK LEAVE OUT FOR NOW AND REPORT TO ATTENDING IN AN. VSS. AFEBRILE . NO S/S ACUTE DISTRESS NOTED OR REPORTED AT THIS TIME. WILL CONT TO MONITOR FOR ANY CHANGES IN CONDITION.
[2020-08-01 07:24] VITALS: BP 101/64
[2020-08-01 12:00] VITALS: BP 117/73
[2020-08-01 12:57] LABS: URINE BILIRUBIN NEGATIVE (Negative); URINE BLOOD NEGATIVE (Negative); URINE CLARITY CLEAR; URINE COLOR YELLOW; URINE GLUCOSE-RANDOM* NEGATIVE (Negative); URINE KETONES NEGATIVE (Negative); URINE LEUKOCYTES NEGATIVE (Negative); URINE NITRITE NEGATIVE (Negative); URINE PROTEIN (DIPSTICK) NEGATIVE (Negative); URINE SPECIFIC GRAVITY >= 1.030 (1.005-1.035)
--- NOTE | 2020-08-01 14:13 | NUR ---
Received awake on bed. Due medications given as prescribed, mixed with apple sauce or pudding, no difficulty in swallowing noted. On room air. Vital signs stable- no fever noted. On MS, not on telemetry; no signs of chest pain, crushing sensation and heaviness noted. On mechanically altered diet- assisted and encouraged in eating and drinking; with supplements- no nausea, no vomiting and no abdominal pain noted. Incontinent of bowel and bladder, checked frequently and changed as needed. Falls bundle in place. No IV noted, as reported by comptroller nurse, they tried to reinsert it 3x but pt kept on removing even reinforcing it with coban- Dr Treadwell called and asked if to still continue prescribed IVF or leave off IV now; tried to reinsert it again today but pt removed it as well. With pending urinalysis- straight catheterization done, specimen obtained and sent to lab. Assisted in ADLs. No signs and complains of pain noted. To continue monitoring patient.
--- NOTE | 2020-08-01 14:46 | NUR ---
CARE TEAM INDICATED THAT PT IS AFEBRILE TODAY. PT A LITTLE MORE ALERT. STILL AWAITING [place] GUARDIANSIP.
[2020-08-01 16:51] VITALS: BP 103/68
[2020-08-01 19:06] VITALS: BP 118/61
[2020-08-02 08:14] VITALS: BP 110/61
--- NOTE | 2020-08-02 11:55 | NUR ---
Received awake on bed. Due medications given as prescribed, able to swallow meds with pudding. Awake, not responding verbally to conversations. On MS, not on telemetry; no signs of chest pain, cruhsing sensation and heaviness noted. On room air. Vital signs stable, no fever noted. On Mechanically altered chopped diet- assisted and encouraged in eating and drinking. Incontinent of bowel and bladder, checked frequently and changed as needed. With L upper arm IV, D5 1/2NS running at 100cc/hr- infusing well; re-inforced with coban. Still a/w guardianship as per CM. Visited by his mother today- update given, No nausea, no vomiting and no abdominal pain noted. To continue monitoring patient.
[2020-08-02 15:15] VITALS: BP 101/62
[2020-08-02 20:00] VITALS: BP 128/72
[2020-08-03 07:30] VITALS: BP 131/84
--- NOTE | 2020-08-03 12:20 | NUR ---
PATIENT VERY LETHARGIC AT THIS TIME. VITALS STABLE. UNABLE TO GIVE P.O MEDICATIONS THIS MORNING DUE TO PATIENT'S STATE. MRI AND EEG ORDERED BY DR. FOOTE AND ALSO ORDERED FOR PRN LORAZEPAM TO BE ADMINISTERED BEFORE MRI. PATIENT'S MOTHER CALLED TO ANS MRI QNS AND UPDATED ON PATIENT'S CONDITION.
--- NOTE | 2020-08-03 13:39 | NUR ---
CARE TEAM INDICATED THAT PT IS TO HAVE REPEAT EEG AND MRI DONE THIS DAY. PT INITIALLY PRESENTED WITH FEVER AND HAD DECLINE AND IS HAVING SAME SYMPTOMS NOW. THEY INDICATED THAT LP MIGHT BE NEEDED. CM TO FOLLOW INDICATED WITH DC PLANNING.
[2020-08-03 16:32] VITALS: BP 103/55
[2020-08-03 19:40] VITALS: BP 113/78
--- NOTE | 2020-08-04 05:24 | NUR ---
ASSUMED PT CARE AROUND 1930. AWAKE. DOES NOT RESPOND TO NURSING STAFF. RESISTENT TO RECEIVE CARE. IV REPLACED PER PT REMOVED IT. VSS. NO S/S ACUTE DISTRESS NOTED OR REPORTED AT THIS TIME. WILL CONT TO MONITOR FOR ANY CHANGES IN CONDITION.
[2020-08-04 08:40] VITALS: BP 104/65
--- NOTE | 2020-08-04 11:40 | NUR ---
PT SLEEPING MOST OF SHIFT, ABLE TO AROUSE AND GIVE MEDICATON WITH ENURE SHAKE. PATIENT REMAINS NON-VERBAL, INCONTINENT. PATIENT PULLED IV OUT APROX 1000. VSS, AFEBRILE, NO SIGNS OF DISTRESS. WILL CONTINUE TO MONITOR.
[2020-08-04 12:16] VITALS: BP 90/61
--- NOTE | 2020-08-04 14:22 | NUR ---
PT'S MOTHER WORKING ON GUARDIANSHIP IN [place]. IT IS ANTICPATED THAPT WILL NEED PLACEMENT ONCE GUARDIANSHIP IS OBTAINED. NO WEEKEND DISHCARGE ANTICPATED. CM TO FOLLOW INDICATED WITH DC PLANNING.
[2020-08-04 15:04] VITALS: BP 122/83
[2020-08-04 19:41] VITALS: BP 124/61
--- NOTE | 2020-08-05 01:21 | NUR ---
ASSUMED PT CARE AROUND 1930. ALERT AND AWAKE. IMPULSIVE AT TIMES. DOES NOT FOLLOW ANY COMMANDS AT THIS TIME. IV ROUTE NOT AVAILABLE PER PT KEEPS DISCONTINUING THE IV ACCESS. NO S/S ACUTE DISTRESS NOTED OR REPORTED AT THIS TIME. WILL CONT TO MONITOR FOR ANY CHANGES IN CONDITION.
[2020-08-05 07:21] VITALS: BP 120/81
[2020-08-05 07:45] VITALS: BP 120/81
[2020-08-05 15:39] VITALS: BP 113/76
[2020-08-05 19:19] VITALS: BP 120/88
--- NOTE | 2020-08-05 20:14 | NUR ---
PATIENT AGITATED THIS AM BUT EASILY REDIRECTED. CALMED DOWN AFTER BREAKFAST. WAS VERY SLEEPY THIS AFTERNOON AND DIFFICULT TO AROUSE. DID NOT EAT DINNER OR AMBULATE TODAY. BARRIER CREAM APPLIED TO REDDENED MAIA-AREA. NEW ONSSET OF TREMORS THIS AFTERNOON. PROVIDER NOTIFIED. WILL CONTINUE TO MONITOR
--- NOTE | 2020-08-06 04:42 | NUR ---
Pt. is non-verbal and unable to express any needs. He has been awake most of the shift and can be impulsive at times. Unable to follow simple directions. Incontinent of urine and stool. Kinza care given and pt. re- postioned, but he will often move frequently in the bed. Bed alarm is on.
--- NOTE | 2020-08-06 05:10 | NUR ---
Pt. refused po med this am and would not take anything po during the night when offered.
[2020-08-06 07:28] VITALS: BP 103/67
[2020-08-06 15:15] VITALS: BP 98/56
--- NOTE | 2020-08-06 18:32 | NUR ---
PT NON VERBAL AND ORIENTED TO SELF. MOTHER AT BEDSIDE TODAY. PATIETN REMAINS LETHARGIC FOR MOST OF DAY. COULD NOT GET PATIENT TO OPEN HIS MOUTH FOR MEDICATION TODAY. NO SIGNS OF DISTRESS. WILL CONTINUE TO MONITOR.
[2020-08-06 19:40] VITALS: BP 113/78
--- NOTE | 2020-08-07 03:06 | NUR ---
ASSUMED PT CARE AROUND 1930. AWAKE IN BED. DOES NOT ANSWER ANY QUESTIONS FOLLOW ANY COMMANDS AT THIS TIME. VSS. NO S/S ACUTE DISTRESS NOTED OR REPORTED AT THIS TIME. WILL CONT TO MONITOR FOR ANY CHANGES IN CONDITION.
[2020-08-07 08:05] VITALS: BP 100/55
[2020-08-07 08:17] VITALS: BP 105/63
--- NOTE | 2020-08-07 15:23 | NUR ---
ASSUMED CARE OF PATIENT AT 0700. ASSESSMENT CHARTED. MEDICATIONS GIVEN CRUSHED IN ICE-CREAM. PATIENT IS VERY WITHDRAWN TODAY. PATIENT FINALLY OPENED EYES DURING BED CHANGE AND TO DRINK HIS SUPPLEMEMENT BUT IS BACK WITH EYES CLOSED. THIS NURSE ATTEMPTED TO GET PATIENT OOB BUT PATIENT RESISTED. PATIENT WAS HOLDING HEAD. PRN TYLENOL GIVEN PER DEC AND LATER STOPPED HOLDING HIS HEAD. PATIENT WAS ENCOURAGED TO EAT AND DRINK BUT HE IS REFUSING. NO IMPULSIVITY TODAY. FALL PRECAUTIONS IN PLACE, WILL CONTINUE TO MONITOR PATIENT
--- NOTE | 2020-08-07 17:44 | NUR ---
I AGREE WITH NURSING ASSESSMENT AND NURSING NOTE DONE BY BRITANY/LICENSED OPTICAL DISPENSER.
[2020-08-07 20:19] VITALS: BP 110/60
--- NOTE | 2020-08-08 04:07 | NUR ---
ASSUMED PT CARE AROUND 1930. ALERT AND AWAKE. NON VERBAL. DOES NOT FOLLOW ANY COMMANDS. VSS. NO S/S ACUTE DISTRESS NOTED OR REPORTED AT THIS TIME. WILL CONT TO MONOTOR FOR ANY CHANGES IN CONDITION.
[2020-08-08 08:49] VITALS: BP 103/73
[2020-08-08 19:22] VITALS: BP 101/66
--- NOTE | 2020-08-08 19:55 | NUR ---
Assumed pt care this am, VS stable remains non verbal. Would eat meals when set up and stgaff is out of the room. REfused pm meds, meds in the am crushed and given with pudding. Was able to get out of bed and walk around the room, max assits. POC followed with no signs or verbalizations of distress noted. Endorsed to the night nurse.
--- NOTE | 2020-08-09 03:27 | NUR ---
Pt. rested quietly at intervals during the night when checked on during frequent rounds. He is non-verbal. Pt. was offered snacks and he ate about 25% of some pudding. Incontient of urine and jeanie care given. Bed alarm is on.
[2020-08-09 07:00] VITALS: BP 110/72
--- NOTE | 2020-08-09 12:25 | NUR ---
ASSUMED CARE OF PATIENT THIS A.M. ASSESSMENT CHARTED. MEDICATIONS ADMINISTERED PER MAR. VSS. PATIENT REMAINS IN BED AND STILL SEEM UNINTERESTED IN ANY ACTIVITIES. STAFF TRIED TO GET PATIENT TO WALK THIS MORNING BUT PATIENT REFUSED. PATIENT STILL REFUSING TO EAT BUT DOES DRINK SUPPLEMENTAL SHAKES. INCONTINENT OF B&B. STAFF IS CONTINUING TO TURN/ENCOURAGE REPOSITIONING FOR THIS PATIENT AND REAPPLYING BARRIER CREAM NEEDED. NO APPARENT PAIN NOTED; NO APPARENT NEEDS AT THIS TIME. WILL CONTINUE TO MONITOR PATIENT
--- NOTE | 2020-08-09 14:50 | NUR ---
CM CHECKED CASE NET AND SAW THAT COURT DATE HAD BEEN HELD VIRTUALLY YESTERDAY. CM CALLED AND SPOKE WITH PT'S MOTHER SHE CONFIRED THAT AND THAT SHE HAD BEEN APPOINTED PT'S GUARDIAN. SHE INDICATED SHE WOULD BRING PAPERWORK TOMORROW MORNING. CM SPOKE WITH HE ABOUT PLACEMENT. CM INDICATED THAT CM WOULD REACH BACK OUT TO [facility] AND TO DR. FOOTE BUT IT HAD BEEN DISCUSSED PREVIOUSLY THAT A SKILLED [facility] MIGHT BE APPROPRIATE. GUSTAVO EMAILED A LIST OF FACILITIES TO Chacha VINNY AT [email or web address] FOR REVIEW. CM CALLED AND LEFT VM WITH LARY Disla AT [facility]. CM NOTIFIED DR. FOOTE AND DYNAMICS AX TECHNICAL ARCHITECT. CM TO FOLLOW INDICATED WITH DC PLANNING.
--- NOTE | 2020-08-09 20:00 | NUR ---
I AGREE WITH NURSING ASSESSMENT AND NURSING NOTE DONE BY BRITANY/PHOTOGRAPHIC ENLARGER OPERATOR.
[2020-08-09 20:30] VITALS: BP 95/62
--- NOTE | 2020-08-10 04:59 | NUR ---
Pt. rested very little during the night when checked on during frequent rounds. He has also tried to get out of the bed a few times and bed alarm has sounded. Incontinent of bowel and bladder jeanie care given. Pt. is non-verbal and unable to express his needs. Bed alarm is on.
[2020-08-10 07:07] VITALS: BP 141/111
--- NOTE | 2020-08-10 12:11 | NUR ---
CM MET WITH PT'S MOTHER/GUARDIAN AT BEDSIDE THIS AM. SHE INIDCATED THAT SHE HAD FORGOTTEN THE GUARDIANSHIP DOCUMENTS. CM ASKED IF SHE HAD RECEIVED THE [facility] LIST CM HAD EMAILED HER YESTERDAY AND SHE INDICATED THAT SHE HADN'T CHECKED HER EMAIL. CM PROVIDED HER A PRINTED LIST AND SHOWED HER THAT SHE WOULD BE LOOKING FOR [place] FACILITIES THAT ACCEPT MEDICAL AND POTENTIALLY HAVE ALZ. CARE OPTION. SHE INDICATED SHE WOULD BRING PAPERWORK FRIDAY. SHE MENTIONED THAT PT HAS A COURT DAY August AND THAT RENETTA ABDI NEEDS SOME CLINICAL DOCUMENTAION. CM TO NOTIFY RISK CM THINKS THIS HAD BEEN ASKED ABOUT PREVIOUSLY BUT WE MAY BE ABLE TO PROVIDE DOCUMENTION NOW THAT PT HAD GUARDIAN IN PLACE. CM TO FOLLOW INDICATED WITH DC PLANNING.
[2020-08-10 14:59] VITALS: BP 108/90
--- NOTE | 2020-08-10 19:47 | NUR ---
Assumed pt care this am, not so impulsive refused all oral meds. Would eat on his own when left alone. Was able to walk the pt around the room from bed to toilet. Pt was able to talk and say "ok i want to go to the toilet." Incontinent of bowel and baldder, jeanie care given. Fall precautions in place, POc followed with no signs or verbalizations of distress noted.
[2020-08-10 20:27] VITALS: BP 104/57
--- NOTE | 2020-08-11 02:16 | NUR ---
CARE ASSUMED AT 1900 PATIENT WAS IN BED ASLEEP. PATIENT IS NON VERBAL. FLUIDS ENCOURAGED, SNACKS OFFERED.PATIENT TOOK HS MEDS WITH A LOT OF ENCOURAGEMENT. PATIENT INCONTIENT THIS SHIFT PERICARE AND BARRIER CREAM APPLIED NEEDED. PATIENT IN BED ASLEEP AT THIS TIME BREATHING REGULAR AND UNLABOURED. FALL PRECAUTION IN PLACE.
[2020-08-11 07:25] VITALS: BP 100/76
[2020-08-11 16:56] VITALS: BP 99/73
--- NOTE | 2020-08-11 18:35 | NUR ---
Assumed pt care this am, lethargic for most of the day and refused some of the medications. Pt is a set up and hydration promoted, meals needs to be left on the table and pt will eat on his own when people are not in the room and looking. Able to ambulate from bed to toilet and aroundthe room. POC followed with no signs or verbalizations of distress noted. Endorsed the the night nurse.
[2020-08-11 19:54] VITALS: BP 132/99
--- NOTE | 2020-08-12 02:54 | NUR ---
PATIENT INCONTINENT THIS SHIFT, PERICARE AND BARRIER CREAM APPLIED NEEDED. PATIENT ENCOURAGED FLUID AND SNACKS THIS SHIFT. FALL PRECAUTION IN PLACE. PATIENT IN BED ASLEEP AT THIS TIME BREATHING REGULAR AND UNLABOURED.
[2020-08-12 07:42] VITALS: BP 107/76
[2020-08-12 15:12] VITALS: BP 118/91
--- NOTE | 2020-08-12 16:05 | NUR ---
ASSUMED CARE OF PATIENT THIS AM. ASSESSMENT CHARTED. MEDICATIONS GIVEN PER MAR. VSS. PATIET IS NON VERBAL, INCONT OF B&B AND A SET UP TO FEED. PATIENT NEEDS TO BE ENCOURAGED TO EAT. NUTRITION IS POOR D/T HIM REFUSING TO EAT. PATIENT IS ENCOURAGED TO DRINK FLUIDS; DRINKS OFFERED EACH TIME THIS NURSE IS IN THE ROOM. FREQUENT CHECKS ARE DONE, PATIENT CONTINUES TO REPOSTITION SELF. UNITERESTED IN ACTIVITIES OTHER THAN WATCHING TELEVISION. FALL PRECAUTIONS IN PLACE, WILL CONTINUE TO MONITOR
[2020-08-12 19:31] VITALS: BP 108/79
[2020-08-12 20:34] VITALS: BP 136/79
--- NOTE | 2020-08-13 03:56 | NUR ---
Pt. rested quietly at short intervals during the night when checked on during frequent rounds. He has been restless at times and attempted to get up out of the bed (bed alarm sounded). He is non-verbal. Incontinent of urine and jeanie care given. Bed alarm is on.
[2020-08-13 07:34] VITALS: BP 112/63
--- NOTE | 2020-08-13 14:01 | NUR ---
Assumed pt care this am, incontinent of bowel and bladder. Pt is a set up for meals and hydration. Lethargic for most of the shift. Would eat meals after set up and when no one is in the room. Meals need to be left infrom of him for long periods as he eats on demand and does small frequent feedings for himself. Meds are given with pudding. Fall precautions in place, pt does not call out and is mostly non-verbal. Awating placement. POC followed with no signs or verbalizations of distress.
[2020-08-13 15:38] VITALS: BP 94/67
[2020-08-13 20:44] VITALS: BP 107/64
--- NOTE | 2020-08-14 03:07 | NUR ---
VSS-AFEBRILE. LUNGS CLEAR-ROOM AIR. CONSUMED MOST OF DINNER, AND WAS COMPLIANT WITH TAKING MEDICATIONS. TWO EPISODES OF INCONTINENCE OVERNIGHT, NO BM. FALL PRECAUTIONS IN PLACE.
[2020-08-14 08:00] VITALS: BP 115/69
--- NOTE | 2020-08-14 14:34 | NUR ---
PT'S MOTHER BROUGHT IN GUARDIANSHIP PAPERWORK THIS DAY. CM MADE COPY AND PUT IT IN PT'S CHART IN THE WALL RECORD CHANGER ASSEMBLER. PT'S MOTHER IS REVIEWING FACILITY LIST. CM TO FOLLOW INDICATED WITH DC PLANNING.
[2020-08-14 19:13] VITALS: BP 101/51
--- NOTE | 2020-08-14 19:47 | NUR ---
Assumed pt care this am, VS stable more alert today had most of his meals and more fluids on his own. Medications not given, no aggitation was noted today. Incontinent of bladder no bm noted. POC followed with no signs of distress noted. Endorsed to the night nurse.
--- NOTE | 2020-08-15 06:34 | NUR ---
ASSUMED PT CARE AROUND 1930. AWAKE, DOES NOT ANSWER ANY QUESTIONS. DOES NOT FOLLOW ANY DIRECTIONS. NO S/S ACUTE DISTRESS NOTED OR REPORTED AT THIS TIME. WILL CONT TO MONITOR FOR ANY CHANGES IN CONDITION.
[2020-08-15 07:07] VITALS: BP 88/77
[2020-08-15 15:07] VITALS: BP 115/68
[2020-08-15 19:10] VITALS: BP 100/58
--- NOTE | 2020-08-15 19:38 | NUR ---
Assumed pt care this am, VS stable. Complete bath given in the pm,refused his medications. Lorazepam not given pt was not imppulsive. POC followed with no signs or verbalizations of distress noted. Endorsed to the night nurse.
--- NOTE | 2020-08-16 03:43 | NUR ---
ASSUMED PT CARE AROUND 193. NON-VERBAL. AGITATION IN AM. TX PER MD ORDER. NO S/S ACUTE DISTRESS NOTED OR REPORTED AT THIS TIME. WILL CONT TO MONITOR FOR ANY CHANGES IN CONDITION.
[2020-08-16 04:07] VITALS: BP 156/82
[2020-08-16 08:00] VITALS: BP 100/56
--- NOTE | 2020-08-16 12:03 | EEG ---
[facility] [place] [address] ELECTROENCEPHALOGRAM Name: BIRD CASILLAS Room #: 451-P ADM IN M.R.#: [id number] Admission: 06/20/20 Attend Phys: Bird Abbasi MD Discharge: Date of : 72 Report #: [id number] THIS REPORT FOR: //name// CC: FAM physician/PCP Bird Abbasi DATE OF SERVICE: 08/03/2020 This patient's EEG was done to evaluate any seizure activity or encephalopathy. Initial part of the EEG is masked by a lot of artifact and is virtually uninterpretable. The patient went to sleep after that. That portion is interpretable, but that is significantly slow. It does go up to about 8-9 Hz, but most of the time, it is slower than that. Photic stimulation is unremarkable. IMPRESSION: Initial part of this EEG is uninterpretable because of lot of artifact, which appeared to be tremor artifact. Later part of the EEG is interpretable, but that EEG demonstrates slowing on both sides, which is a nonspecific finding, which can occur with drowsiness, encephalopathy, effect of psychotropic medication, etc. Clinical correlation is recommended. <ELECTRONICALLY SIGNED> By: Humphrey De La Torre MD 08/16/20 1203 [id number] Humphrey De La Torre MD /nt
[2020-08-16 15:21] VITALS: BP 90/58
--- NOTE | 2020-08-16 15:57 | NUR ---
CM SPOKE WIHT PT'S MOTHER/GUARDIAN THIS AFTERNOON. SHE ASKED THAT REFERRALS BE SENT TO [facility] PREVIOUSLY CALLED [facility] AND TO [facility]. CM CALLED BOTH FACILITIES AND LEFT VM'S INQUIRING ABOUT BED AVAIABILITY. CM TO FAX REFERRALS. CM TO FOLLOW INDICATED WITH DC PLANNING.
--- NOTE | 2020-08-16 18:29 | NUR ---
Assume patient care around 7 am, alert and restless for most of the shift. good appetite, finished about 70% of breakfast and lunch, 90% of dinner. incontinent.
[2020-08-16 19:06] VITALS: BP 94/63
--- NOTE | 2020-08-17 04:45 | NUR ---
ASSUMED PT CARE AT 2049. NO IV ACCESS. PT IS NON VERBAL. PT IS INCONTINENT B&B. WHEN I ASKED HOW HE WAS FEELING AND IF HE WAS IN PAIN HE WAS NON RESPONSIVE. PT TAKES MEDS WHOLE WITH PERSUATION. PT IS ASLEEP IN HIS ROOM. I WILL CONTINUE TO MONITOR.
[2020-08-17 07:45] VITALS: BP 94/71
--- NOTE | 2020-08-17 07:56 | NUR ---
THIS RN HAS REVIEWED HEAD OPERATOR SULFIDE'S CHARTING AND CARE GIVEN TO THIS PATIENT I AGREE AND APPROVE OF CARE PROVIDED.
--- NOTE | 2020-08-17 10:29 | NUR ---
ASSUMED PT CARE THIS AM. PT VITAL SIGNS STABLE, SLEEPING THIS AM. PT DID NOT WAKE UP TO TAKE MEDS THIS AM, WILL GIVE MEDS WHEN AWAKE. PT DID NOT EAT ANY BREAKFAST. WILL PROVIDE FOOD WHEN AWAKE. ASSESSMENT COMPLETED. WILL CONTINUE TO MONITOR.
--- NOTE | 2020-08-17 12:03 | NUR ---
CM VISITED WITH PT'S MOTHER/GUARDIAN THIS AM. CM INFORMED HER THAT [facility] ISN'T TAKING NEW PATIENTS AND THAT CM STILL HADN'T HEARD BACK FROM [facility]. CM PROVIDED HER LIST OF FACILITIES FOR HER TO LOOK AT TO PROVIDE SOME ADDITIONAL CHOICES FOR REFERRALS TO BE SENT TO. CM TO FOLLOW INDICATED WITH DC PLANNING.
[2020-08-17 15:26] VITALS: BP 93/66
--- NOTE | 2020-08-17 20:06 | NUR ---
Assumed care on 08/17/20 @ 1945, in bed eyes closed, respirations even and unlabored. Does not respond to verbal greeting. VS slightly low 93/66 88 16 95% 36.6. HRRR, Lungs CTA bilat, ABD N x 4Q, Pedal Pulses Present, will continue to monitor for safety and comfort.
[2020-08-17 20:38] VITALS: BP 100/68
[2020-08-18 07:16] VITALS: BP 87/52
--- NOTE | 2020-08-18 08:00 | NUR ---
Took meds crushed in pudding, allowed his face and hands to be washed and returned to sleep. Awoke @ 0300, and walked the halls. Tried to go out into the halls with only a hospital gown on, no socks, with difficulty, staff was able to dress him and ambulated with him. Tried to elope from the unit multiple times. PRN 0.5 mg Ativan IM provided after which became drowsy and stayed in bed, however removed clothes and sheets, would not allow self to be covered up.
--- NOTE | 2020-08-18 14:50 | NUR ---
Assumed care of patient at 0700. Resting quietyly in bed. Does not respond when addressed. Cooperative with oral medications. Taking medications crushed with pudding. Keeps uncovering himself. Breath sounds clear bilaterally, no cough, abdomen sift and flat with bowel sounds present. Moving all extremeties. Incontinent .
[2020-08-18 19:22] VITALS: BP 93/63
[2020-08-19 07:31] VITALS: BP 121/78
--- NOTE | 2020-08-19 07:33 | NUR ---
ASSUMED PT CARE AROUND 1930. ALERT AND AWAKE. OCCASIONAL IMPULSIVITY TO GET UP. NO S/S ACUTE DISTRESS NOTED OR REPORTED AT THIS TIME. CARE TRANSFERRED TO INCOMING RN AT THIS TIME.
--- NOTE | 2020-08-19 14:36 | NUR ---
ASSUMED CARE OF PATIENT AT APPROX 0700. ASSESSMENT CHARTED. MEDICATIONS GIVEN PER MAR; CRUSHED W PUDDING. VSS. PATIENT IS AWAKE AND ALERT; RESPONDS TO HIS NAME BUT NON-VERBAL THIS SHIFT. ENCOURAGED TO GET OOB AND AMBULATE BY THIS NURSE BUT PATIENT REFUSED. DIET IS PROBABLY INADEQUATE PATIENT PICKS FEW ITEMS TO EAT BUT DRINKS 100% OF HIS SUPPLEMENTS. INCONT OD B&B; PATIENT REPOSITIONS SELF. DOES NOT APPEAR IN ANY APPARENT PAIN OR DISTRESS. FALL PRECAUTIONS IN PLACE; NEAR NURSES STATION D/T IMPULSIVITY AT TIMES. WILL CONTINUE TO MONITOR AND FOLLOW PLAN OF CARE.
[2020-08-19 15:33] VITALS: BP 118/83
[2020-08-19 19:20] VITALS: BP 89/51
--- NOTE | 2020-08-19 21:52 | NUR ---
Care assumed of patient at 1914: Patient resting in bed at start of shift. Easily aroused. Non-verbal. No s/s of pain or discomfort observed. Alert to name being called. BP 89/51 at 1914. PHILOMENA Gallagher, notified. Order obtained to hold HS Ativan and re-check. Took HS medication crushed in one bite of pudding. Declined further HS snack. Patient resting quietly in bed at this time.
[2020-08-19 21:58] VITALS: BP 93/54
[2020-08-20 08:39] VITALS: BP 114/69
--- NOTE | 2020-08-20 09:48 | NUR ---
ASSUMED CARE AT 0700 THIS MORNING. PT. LYING IN POSITION ON HIS RIGHT SIDE IN HIS BED. HE WAS CHANGED X 1. HE IS MOSTLY MUTE. HE INITIALLY REFUSED HIS BREAKFAST AND MEDICATIONS BUT SAT UP ABOUT 0930 AND STARTED FEEDING HIMSELF. HE WAS GIVEN HIS MORNNING MEDICATIONS AT THAT TIME. WAS COOPERATIVE WITH THE ASSESSMENT. LUNGS CTA, HYPOACTIVE BOWEL SOUNDS.
[2020-08-20 20:34] VITALS: BP 97/63
--- NOTE | 2020-08-21 04:19 | NUR ---
PATIENT ALERT AND ORIENTED X1. BM MEDIUM, BROWN AND FORMED. INCONTINENT OF URINE X3 DURING THE NIGHT. BED ALARM ENGAGED PATIENT WILL ATTEMPT TO GET OOB. MEDICATIONS CRUSHED AND SERVED WITH APPLESAUCE. RESTING QUIETLY. WILL MONITOR.
[2020-08-21 07:31] VITALS: BP 99/58
--- NOTE | 2020-08-21 14:25 | NUR ---
ASSUMED PT CARE THIS AM. PT VITAL SIGNS STABLE, SLEEPING SO FAR THE ENTIRE SHIFT. PT AWOKE WHEN I TRIED TO GIVE MEDS, REFUSED TO TAKE. PT HAS NOT EATEN ANYTHING ALL DAY OR DRANK ANYTHING EVEN THOUGH NURSE HAS ENCOURAGED. BED ALARM ON, FREQUENT CHECKS BEING DONE. PT LAYING IN POSITION. SPOKE WITH HIS MOM THIS AM REGARDING UPDATES. WILL CONTINUE TO MONITOR.
[2020-08-21 15:35] VITALS: BP 97/64
[2020-08-21 19:19] VITALS: BP 95/59
--- NOTE | 2020-08-22 08:06 | NUR ---
Assumed pt care at 1900. Pt alert to self only,VSS. Incontinent of B&B,max assist with ADLs but can sometimes feed self. Fall precautions in place,close observation done on pt d/t high fall risk and impulsiveness at times. Pt has no IV access,provider aware. Declined taking his HS meds,but took meds okay this morning.
[2020-08-22 08:17] VITALS: BP 95/65
--- NOTE | 2020-08-22 13:09 | NUR ---
ASSUMED PT CARE THIS AM. PT VITAL SIGNS STABLE, AWAKE AT THE MOMENT. THIS AM, PT AWOKE TO TAKE MEDS, REFUSED TO EAT BREAKFAST. PT ATE SOME LUNCH. PT WAS CHANGED TWICE THIS SHIFT. WILL CONTINUE TO MONITOR.
--- NOTE | 2020-08-22 15:08 | NUR ---
GUSTAVO FINIALLY SPOKE WITH ELVIRA IN ADMISSIONS AT [facility] AND SHE INDICATED [facility] MAY HAVE A BED OPEN FRIDAY. REFERRAL SENT TO COMMUNITY FOR REVIEW FOR POSSIBLE ADMISSION. CM HAD CALLED PT'S MOTHER/GUARDIAN AND LEFT VM RELATED TO WHERE ELSE SHE WOULD LIKE REFERRALS SENT. CM AWAITING RESPONSE. CM TO FOLLOW INDICATED WITH DC PLANNING.
--- NOTE | 2020-08-22 16:29 | NUR ---
FAXED REFERRAL TO [facility] RECEIVED CONFIRMATION AND LEFT MSG WITH KIERAN IN ADM.
[2020-08-22 17:16] VITALS: BP 86/54
[2020-08-22 19:34] VITALS: BP 101/63
--- NOTE | 2020-08-22 21:34 | NUR ---
Care of patient assumed at 1915: Patient laying in bed watching TV at start of shift. Alert, calm, cooperative. Nonverbal. No s/s of pain or discomfort observed. Pleasant during assessment. Redness observed to perirectal area. Barrier cream applied after incontinent episode. Ate 100% HS snack with total assist from nurse. Took HS medication crushed without difficulty. Resting quietly in bed at this time.
[2020-08-23 07:23] VITALS: BP 117/95
--- NOTE | 2020-08-23 15:02 | NUR ---
PATIENT WAS IN BED ASLEEP WHEN CARE ASSUMED THIS MORNING AT 0700HRS. PATIENT IS ALERT, REMAIN NON-VERBAL. PATIENT TOOK ALL MEDICATION CRUSHED IN [place] PUDDING, WELL TOLERATED. PATIENT IS CALM, COOERATIVE WITH CARE. INCONTINENT CARE PROVIDED BY STAFF, BARREIR CREAM APPLIED TO MAIA AREA REDNESS. NO SIGN OF ACUTE DISTRESS NOTED AT THIS TIME, CALL LIGHT IN REACH, WILL CONTINUE TO MONITOR.
[2020-08-23 15:05] VITALS: BP 95/69
[2020-08-23 19:58] VITALS: BP 109/85
--- NOTE | 2020-08-24 04:36 | NUR ---
ASSUMED PT CARE AROUND 1930. AWAKE AND DISORIENTED X 4. DOES NOT FOLLOW COMMANDS. NO S/S ACUTE DISTRESS NOTED OR REPORTED AT THIS TIME. WILL CONT TO MONITOR FOR ANY CHANGES IN CONDITION.
[2020-08-24 08:04] VITALS: BP 83/54
--- NOTE | 2020-08-24 15:30 | NUR ---
ASSUMED CARE OF PATIENT AT SHIFT CHNAGE. ASSESSMENT CHARTED. MEDICATIONS GIVEN PER MAR IN PUDDING W NO ISSUES. VSS. PATIENT LOOKS OVER WHEN HIS NAME IS CALLED; ALERT TO HIMSELF. PATIENT PAYS ATTENTION TO TV AND LAUGHS AT SOME SCENES BUT REMAINS NON-VERBAL THROUGHOUT SHIFT. PATIENT SLEPT THROUGH BREAKFAST BUT ATE 100% OF HIS LUNCH WITH ASSISTANCE FROM CARETAKER GROUNDS. PATIENT HAS BEEN COMPLIANT WITH ALL CARE DESPITE HAVING A HX OF REFUSING. IS INCONTINENT OF BOWEL AND BLADDER BUT DID NOT TRY TO ELOPE OR GET OUT OF BED THIS SHIFT. PLACEMENT IS PENDING FOR THIS PATIENT. WILL CONTINUE TO MONITOR AND FOLLOW PLAN OF CARE.
[2020-08-24 18:38] VITALS: BP 101/62
[2020-08-24 19:11] VITALS: BP 86/46
--- NOTE | 2020-08-24 19:38 | NUR ---
I AGREE WITH NURSING ASSESSMENT AND NURSING NOTE DONE BY BRITANY/NITROGLYCERIN NEUTRALIZER.
[2020-08-24 23:26] VITALS: BP 112/72
--- NOTE | 2020-08-25 04:20 | NUR ---
ASSUMED PT CARE AROUDN 1930. AWAKE AND DISORIENTED X 4. VSS. NO S/S ACUTE DISTRESS NOTED OR RPEORTED AT THIS TIME. WILL CONT TO MONITOR FOR ANY CHANGES IN CONDITION.
--- NOTE | 2020-08-25 15:41 | NUR ---
CM REACHED OUT TO PT'S MOTHER AGAIN THIS DAY TO ASK WHERE ELSE SHE WANTS REFERRALS SENT. NO RESPONSE OF THIS NOTE. LOOKING FOR SEC[facility]ED [facility] C[facility] IN [place] MEDIAID PENDING. NO WEEKEND DC ANTICPATED.
--- NOTE | 2020-08-25 18:28 | NUR ---
ASSUMED CARE OF PATIENT AT SHIFT CHANGE. ASSESSMENT CHARTED. MEDS GIVEN PER DEC. VSS. PATIENT HAD NO CHANGES TODAY. REFUSED BREAKFAST AND TOLERATED LUNCH AND DINNER. WAS RESTLESS AT TIMES. REMAINS INCONTINENT OF BOWEL AND BLADDER. BARRIER CREAM APPLIED PRN. STILL AWAITING PLACEMENT. FALL PRECAUTIONS IN PLACE. WILL CONTINUE TO MONITOR
[2020-08-25 19:34] VITALS: BP 90/58
--- NOTE | 2020-08-26 02:38 | NUR ---
Assumed care of patient this pm shift. Patient lying in bed in the position. Patient is alert and oriented to self only. Patient takes medications crushed in pudding. Vital signs stable. Incontinent of bowel and bladder. Patient is a falls risk, falls precautions in place. No signs of acute distress. Patient sleeping through the night. Patient is nonverbal. We will continue to monitor per hospital policy.
[2020-08-26 15:19] VITALS: BP 94/56
--- NOTE | 2020-08-26 16:32 | NUR ---
ASSUMED CARE OF PATIENT THIS AM. ASSESSMENT CHARTED. MEDS GIVEN PER MAR. VSS. PATIENT CONTINUES TO STAY HERE AT HOSPITAL AWAITING PLACEMENT TO A FACILITY. PATIENT HAS LITTLE ENERGY THIS DAY AND IS NON VERBAL. PATIENTS INTAKE IS POOR; HE FAVORS HIS ENSURE PUDDING AND SHAKES AND TOLERATES THEM AT 100%. PATIENT CONTINUES TO BE INCONTINENT OF BOWEL AND BLADDER; FREQUENT CHECKS ARE DONE AND BARRIER CREAM APPLIED NEEDED. NO EVENTS TODAY. PATIENT IN BED ASLEEP OR WATCHING T.V. FALL PRECAUTIONS ARE IN PLACE. PATIENT IS EASILY SEEN NEAR NURSES STATION AND CAN BE MONITORED CLOSELY. WILL CONTINUE TO MONITOR
[2020-08-26 20:24] VITALS: BP 98/58
--- NOTE | 2020-08-27 04:20 | NUR ---
Pt. rested quietly at intervals during the night when checked on during frequent rounds. He is non-verbal, but awake at times. Incontinent of bowel and bladder during the shift. Kinza and skin care given frequently. Snacks offered and he ate them well. Bed alarm is on.
--- NOTE | 2020-08-27 12:40 | NUR ---
ASSUMED PT CARE THIS AM. PT ATE SOME BREAKFAST, CURRENTLY EATING LUNCH. PT CONTINUES TAKING GOWN OFF, NURSE CONTINUES PLACING GOWN ON PT. PT ALERT, NONRESPONSIVE. WILL CONTINUE TO MONITOR.
[2020-08-27 13:59] VITALS: BP 90/63
[2020-08-27 18:51] VITALS: BP 110/78
--- NOTE | 2020-08-28 04:06 | NUR ---
Pt. has been awake about 90% of the shift. He has been very restless and sounding off his bed alarm frequently. Pt. attempting to elope from his room and had to redirected. Prn ativan im given with little relief. He was brought out by the nurses station in a recliner chair for closer super- vision for about an hour. He is currently lying in bed and keeps pulling his legs up to his chest repetively. Bed alarm is on.
[2020-08-28 08:00] VITALS: BP 112/63
--- NOTE | 2020-08-28 11:26 | NUR ---
PT ALERT TO SELF, VSS, AFEBRILE, NO APPARENT PAIN. PATIENT IMPULSIVE WANTING TO GET OUT OF BED AND GOES STRAIGHT TO THE EXIT. PATIENT WAS WALKED AROUND HALLWAY AND THAT HELPED. PATIENT EATING AND DRINKING. PATIENT CONTINUE TO BE INCONTINENT AND HAS NO IV ACCESS. PATIENT TOOK MEDS CRUSHED. NO SIGNS OF DISTRESS. WILL CONTINUE TO MONITOR.
--- NOTE | 2020-08-28 11:57 | NUR ---
CM CALLED PT'S MOTHER/GUARDIAN THIS AM TO SEE WHERE ELSE SHE WANTED REFERRALS SENT FOR REVIEW FOR POSSIBLE ADMISSION. NO ANSWER. REFERRALS TO BE SENT TO: [facility]: [facility]: [facility]: [facility]: [facility]: [facility]:
[2020-08-28 15:30] VITALS: BP 94/61
[2020-08-28 22:52] VITALS: BP 109/70
[2020-08-29 03:56] VITALS: BP 83/52
--- NOTE | 2020-08-29 04:21 | NUR ---
PROGRESS PT ALERT BUT NONE VERBAL, VERY IMPULSIVE AND ACTIVE WANTING TO WALK FREQUENTLY BUT HEADS FOR THE STAIRS AND THEN NEEDS A LOT OF COAXING TO CONTINUE WALKING. INCONTINENT OF URINE X3 BUT SAT ON TOLIET AND URINATED X1. GAIT STEADY PT MUCH STRONGER THAN WHEN HE FIRST WAS ADMITTED. PT ACTUALLY SPOKE TO ME FOR THE FIRST TIME HE ASKED ME TO MOVE MY COMPUTER.
[2020-08-29 08:15] VITALS: BP 106/84
--- NOTE | 2020-08-29 08:36 | NUR ---
followup; Extended length of stay with guardianship appointment and awaiting discharge. No further labs, no new wt since 08/15. Eats minimal to good at meals with last intake 40% breakfast, 20% lunch, 70% dinner however consistently 100% of oral supplements. Impaired cognition. Change nutrition status to low risk with appropriate nutrition interventions in place while pt awaits discharge.
--- NOTE | 2020-08-29 10:26 | NUR ---
SPOKE WITH DONALD FROM [facility] THEY CANNOT ACCEPT THEY DO NOT HAVE A [facility],
--- NOTE | 2020-08-29 12:08 | NUR ---
Alert and cooperative, calm. Nonverbal per report. No verbalizations this AM but follows commands. Breath sounds clear and diminished, bilaterally equal. Reg HR auscultated. Color pink with brisk capillary refill and palpable peripheral pulses. Brief dry. Active bowel sounds over soft, flat abdomen. Buttocks reddened, no breakdown. Took meds crushed in pudding without difficulty.
--- NOTE | 2020-08-29 14:55 | NUR ---
SPOKE WITH NASEEM FROM ADM AT [facility] SHE RECEIVED REFERRAL AND WILL REVIEW THEY DO HAVE A LOCKED UNIT QUESTIONABLE IF THEY HAVE A BED AVAILABLE.
[2020-08-29 15:10] VITALS: BP 107/54
--- NOTE | 2020-08-29 19:31 | NUR ---
ASSUMED CARE OF PATIENT AT 1200, REPORT RECEIVED FROM DEVENDRA RODRIGUES/CARRINGTON. PATIENT SLEEPING DURING REPORT, REFUSED LUNCH. PATIENT DID TAKE SCHEDULED LORAZEPAM AT NOON AND 1700. PATIENT DID EAT 40% OF DINNER. COVID TEST DONE FOR PLACEMENT. B/P WAS LOW ON NIGHTSHIFT, BUT THIS SHIFT 107/54 AND 106/84. NON-VERBAL THIS SHIFT, PATIENT DID GET UP WONDERING PRIOR TO GETTING REPORT, BUT REMAINED IN BED FOR THE REST OF THE SHIFT. REPORT GIVEN TO AYDIN Hoty/CARRINGTON. PATIENT INCONTINENT OF URINE, NO BM THIS SHIFT.
[2020-08-29 20:30] VITALS: BP 82/50
--- NOTE | 2020-08-30 03:46 | NUR ---
VSS-AFEBRILE. AWAKE AND COOPERATIVE THROUGH MOST OF SHIFT. CAN BE IMPULSIVE AND GET OUT OF BED/CHAIR WITHOUT ASSISTANCE, FALL PRECAUTIONS IN PLACE. INCONTINENT OF URINE, CHANGED NEEDED. OFFERED ORAL HYDRATION EVERY TWO HOURS.
[2020-08-30 05:28] VITALS: BP 91/57
[2020-08-30 08:11] VITALS: BP 88/56
--- NOTE | 2020-08-30 15:00 | NUR ---
CM CALLED [facility] AND LEFT ALANNAH GUSMAN IN ADMISSIONS INQUIRING ABOUT REFERAL STATUS. CM FOLLOWING REGARDING DC PLANNING.
[2020-08-30 15:05] VITALS: BP 89/57
--- NOTE | 2020-08-30 16:37 | NUR ---
ASSUMED CARE OF PATIENT THIS AM. ASSESSMENT CHARTED. MEDS GIVEN PER DEC. VSS; BP HAS BEEN LOWER THESE DAYS; PROVIDER AWARE; ASYMPTOMATIC. PATIENT IS AWAKE IN BED WITH TV ON. NEEDS ENCOURAGEMENT TO EAT; NUTRITION IS POOR. SUPPLEMENTS TOLERATED BY PATIENT AT 100%. TAKES MEDICATIONS CRUSHED IN PUDDING WITH NO ISSUES. INCONTINENT OF BOWEL AND BLADDER. FREQUENT CHANGES AND CHECKS DONE. PATIENT REPORTED IMPULSIVE LAST NIGHT, DISPLAYED NO IMPULSIVITY TODAY. NO IV ACCESS. IN NO APPARENT PAIN. AWAITING PLACEMENT. FALL PRECAUTIONS IN PLACE. WILL CONTINUE TO MONITOR AND FOLLOW PLAN OF CARE
[2020-08-30 19:35] VITALS: BP 103/58
--- NOTE | 2020-08-30 19:40 | NUR ---
I AGREE WITH NURSING ASSESSMENT AND NURSING NOTE DONE BY BRITANY/WARE CARRIER.
[2020-08-31 07:30] VITALS: BP 90/74
--- NOTE | 2020-08-31 16:29 | NUR ---
I AGREE WITH NURSING ASSESSMENT DONE BY BRITANY/RAND CEMENTER.
[2020-08-31 17:42] VITALS: BP 85/54
[2020-09-01 05:36] VITALS: BP 101/83
[2020-09-01 14:32] VITALS: BP 109/68
--- NOTE | 2020-09-01 16:09 | NUR ---
ASSUMED CARE OF PATIENT AT 0700. ASSESSMENT CHARTED. MEDS GIVEN PER MAR. VSS. PATIENT IN BED REMAINS NON VERBAL AND LOOKS TOWARD HIS NAME BEING CALLED AT TIMES. APPETITE IS BETTER TODAY. SUPPLEMENTS COMPLETED 100%. PATIENT NAPPED INTERMINTENTLY THROUGHOUT BED. NO ISSUES WITH ELOPEMENT. NO BEHAVIORAL ISSUES. BED BATH COMPLETE AND PATIENT APPEARS IN NO APPARENT DISTRESS. WILL CONTINUE TO MONITOR.
--- NOTE | 2020-09-01 17:06 | NUR ---
SPOKE WITH NASEEM IN ADM AT [facility] SHE CANNOT ACCEPT PT DUE TO FINANCIAL AND BEHAVIORS. FAXED REFERRAL TO [facility] RECEIVED CONFIRMATION AND LEFT MSG WITH ELDER IN ADM.
[2020-09-01 19:44] VITALS: BP 92/60
--- NOTE | 2020-09-02 05:09 | NUR ---
ASSUMED PT'S CARE THIS PM SHIFT. PT REMAINS NONVERBAL. TOOK MEDS CRUSHED IN PUDDING. INCONTINENT OF BLADDER THIS SHIFT. NO BM NOTED. NO IV ACCESS AT THIS TIME. FALL PRECAUTION IN PLACE. AWAITING PLACEMENT. CALL LIGHT WITHIN REACH. WILL CONTINUE TO MONITOR.
[2020-09-02 08:00] VITALS: BP 102/78
[2020-09-02 10:21] LABS: ABSOLUTE NEUTROPHILS 3.1 thou/uL (1.4-8.2); BASOPHILS 0.8 % (0.0-2.0); EOSINOPHILS 6.5 % (0.0-3.0); HEMATOCRIT 43.4 % (42.0-52.0); HEMOGLOBIN 14.4 gm/dL (14.0-18.0); LYMPHOCYTES 37.8 % (24.0-44.0); MCH 30.3 pg (26.0-34.0); MCHC 33.2 g/dL (28.0-37.0); MCV 91.1 fL (80.0-100.0); PLATELET COUNT 207 thou/uL (150-400); POLYS 47.9 % (36.0-66.0); RBC 4.76 mil/uL (4.50-6.00); WBC 6.4 thou/uL (4.0-11.0)
[2020-09-02 10:39] LABS: ALBUMIN 3.8 g/dL (3.4-5.0); CALCIUM 9.3 mg/dL (8.5-10.1); POTASSIUM 3.3 mmol/L (3.5-5.1); TOTAL BILIRUBIN 0.4 mg/dL (0.2-1.0); TOTAL PROTEIN 7.3 g/dL (6.4-8.2)
--- NOTE | 2020-09-02 11:20 | NUR ---
ASSUMED CARE AT 0700 THIS MORNING. PT. SITTING UP IN BED, AWAKE. HIS TRAY WAS BEING PREPARED FOR HIM, HE STARTED EATING AND DRINKING. HE ATE BREAKFAST AND WAS COOPERATIVE WITH ASSESSMENT. LUNGS CTA, BOWEL SOUNDS + 4 QUADRANTS. NO EDEMA NOTED TO LE. HIS MEDS WERE CRUSHED AND PUT IN PUDDING. HE ATE THESE WITHOUT PROBLEMS NOTED.
[2020-09-02 16:29] VITALS: BP 99/63
[2020-09-02 21:00] VITALS: BP 93/62
--- NOTE | 2020-09-03 04:45 | NUR ---
Assumed pt care at 1900. Pt awake/alert, nonverbal. VSS. No signs/sx of pain or discomfort noted. Pt took HS crushed in applesauce w/o problems. Incontinent of B&B this shift. Pt inappropriate and playing with himself when nurse went to his room,prompted him to stop and he did eventually. Potassium 3.3,replaced and awaiting redraw this morning. Fall precautions in place,frequent checks on pt. Will continue to monitor pt.
[2020-09-03 05:32] LABS: ABSOLUTE NEUTROPHILS 2.5 thou/uL (1.4-8.2); BASOPHILS 1.1 % (0.0-2.0); EOSINOPHILS 7.4 % (0.0-3.0); HEMATOCRIT 42.9 % (42.0-52.0); HEMOGLOBIN 14.1 gm/dL (14.0-18.0); LYMPHOCYTES 37.8 % (24.0-44.0); MCHC 32.9 g/dL (28.0-37.0); MCV 91.1 fL (80.0-100.0); MONOCYTES 7.1 % (1.0-8.0); PLATELET COUNT 215 thou/uL (150-400); POLYS 46.6 % (36.0-66.0); RBC 4.71 mil/uL (4.50-6.00); RDW 13.8 % (10.5-14.5); WBC 5.3 thou/uL (4.0-11.0)
[2020-09-03 05:54] LABS: CALCIUM 9.2 mg/dL (8.5-10.1); CREATININE 0.9 mg/dL (0.7-1.3); MAGNESIUM 2.1 mg/dL (1.8-2.4); PHOSPHORUS 4.1 mg/dL (2.5-4.9)
[2020-09-03 07:05] VITALS: BP 108/61
[2020-09-03 08:00] VITALS: BP 108/61
--- NOTE | 2020-09-03 14:47 | NUR ---
ASSUMED CARE AT 0700 THIS MORNING. PT. IN HIS BED RESTING. HE SAT UP AND ATE BREAKFAST. HE WAS GOTTEN UP, CHANGED AND TAKEN FOR A WALK. HE RETURNED TO HIS ROOM AND ABOUT 30 MIN LATER, HE WAS WALKING HIMSELF OUT OF HIS ROOM. STAFF TOOK HIM FOR A WALK AT THAT TIME. HE DID RETURN TO HIS ROOM AND GO TO SLEEP AFTER THE SECOND WALK. HE AT MOST OF HIS BREAKFAST, AND ABOUT 1/2 HIS LUNCH. HE HAS TAKEN ALL HIS MEDICATIONS, CRUSHED AND IN PUDDING. HE WAS CHANGED WHEN HE WAS WET.
[2020-09-03 16:50] VITALS: BP 93/44
[2020-09-03 19:08] VITALS: BP 91/57
--- NOTE | 2020-09-04 04:15 | NUR ---
ASSUMED PT CARE AROUND 1930. DISRITENTED X 4. DOES NOT FOLLOW ANY DIRECTIONS. NO S/S ACUTE DISTRESS NOTED OR REPORTED AT THIS TIME. WILL CONT TO MONITOR FOR ANY CHANGES IN CONDITION.
[2020-09-04 07:45] VITALS: BP 97/64
--- NOTE | 2020-09-04 10:41 | NUR ---
ASSUMED CARE OF PATIENT AT SHIFT CHANGE. ASSESSMENT CHARTED. MEDS GIVEN PER MAR CRUSHED W PUDDING. PATIENT DOES NOT SPEAK BUT DOES NOT RESIST CARE. IS INCONTINENT OF B&B. PATIENT HAS BEEN HAVING HARD AND LARGE BM'S; PROVIDER WAS NOTIFIED AND WILL LIKELY BE STARTING STOOL SOFTNERS OR A LAXATIVE. PATIENT WAS GIVEN A BED BATH THIS AM. VITALS REMAIN STABLE. STILL NEEDING ENCOURAGEMENT AND SUPERVISION WITH FEEDING. AWAITING PLACEMENT FOR THIS PATIENT.WILL CONTINUE TO MONITOR AND FOLLOW PLAN OF CARE
--- NOTE | 2020-09-04 16:35 | NUR ---
[facility] CAN'T ACCEPT. NEW BATCH OF REFERRALS TO BE SENT FOR [facility] WITH SECURED UNIT.
--- NOTE | 2020-09-04 18:57 | NUR ---
I AGREE WITH NURSING ASSESSMENT AND NURSING NOTE DONE BY BRITANY/EXTRUSION OPERATOR.
[2020-09-04 19:14] VITALS: BP 101/55
--- NOTE | 2020-09-05 05:29 | NUR ---
ASSUMED CARE OF PT AROUND 1900HRS. PT ALERT BUT WAS NON VERBAL THIS SHIFT. PT WAS INCT THIS SHIFT. ASSESSMENT CHARTED. PT WAS NOT IMPULSIVE THIS SHIFT. PT WAS ABLE TO GET COMFORTABLE AND SLEEP PART OF THE SHIFT. VSS AND NO S/S OF ACUTE DISTRESS. WILL CONTINUE TO MONITOR.
[2020-09-05 09:31] VITALS: BP 130/101
--- NOTE | 2020-09-05 10:28 | NUR ---
Nutrition followup: Pt continues on 4. Guardianship awarded to mother. PO intakes highly variable from refusal to 80% of meals on regular diet. Eats 100% of most supplement, ensure enlive once daily, ensure pudding BID. Possible severe weight loss. Admit weights 132# and sudden drop to 107# on 08/14. Recent weights 106-110#. Requested standing scale weight [place] [facility] [place]. 09/04 BM. Awaiting placement. Keep at low nutrition risk with interventions in place. Followup on accuracy of weight trends.
--- NOTE | 2020-09-05 14:50 | NUR ---
SPOKE WITH CAM IN ADM AT [facility] (OP NURSING/REHAB) THEY DENIED REFERRAL THEY DO NOT HAVE A LOCKED UNIT.
--- NOTE | 2020-09-05 16:11 | NUR ---
REFERRALS SENT TO [facility], [facility] (DENIED), AND [facility]. TO FOLLOW INDICATED WITH HOPEFUL PLACEMENT.
--- NOTE | 2020-09-05 16:29 | NUR ---
PATIENT HAS BEEN IN BED MOST OF THE SHIFT, ALERT, NON-VERBAL. MEDICATION GIVEN CRUSHED IN PUDDING, WELL TOLERATED. PATIENT REQUIRES STAFF ASSIST TO FEED, INCONTINENT CARE PROVIDED PER STAFF. LUNGS DIMINISHED PEER AUSCULTATION IN ALL LOBE, BS+X4, ABD SOFT, NON-TENDER TO TOUCH. NO SIGN OF PAIN OR DISCOMFORT NOTED. PATIENT IS ABLE TO REPOSITION SELF IN BED. NO SIGN OF ACUTE DISTRESS NOTED AT THIS TIME, WILL MONITOR FOR SAFETY.
[2020-09-05 18:40] VITALS: BP 87/59
[2020-09-05 20:45] VITALS: BP 76/47
--- NOTE | 2020-09-06 02:46 | NUR ---
ASSUMED PT CARE AT 1915. PT IS ALERT TO SELF. PT HAS NO IV ACCESS. PT DOES NOT CALL OUT APPROPRIATELY. PT GETS OUT OF BED AND WANDERS FROM TIME TO TIME. PT TAKES MEDS WHOLE AND CRUSHED IN APPLE SAUCE. PT HAS NO SKIN ISSUES. WILL CONTINUE TO MONITOR.
[2020-09-06 09:56] VITALS: BP 106/80
--- NOTE | 2020-09-06 11:39 | NUR ---
ASSUMED CARE AT 0700. PATIENT IS CONFUSED, ALERT TO SELF ONLY. PATIENT AVALOS'S, PATIENT IS ASSIST FEED. LUNGS ARE CLEAR AND DEMINISHED. ABD IS SOFT WITH BSX4. PATIENT IS INCONTINENT OF URINE. FALL AND SAFETY PROTOCOLS IN PLACE. DENIES PAIN. PATIENT IS WAITING FOR PLACEMENT. WILL CONTINUE TO MONITER
[2020-09-06 14:39] VITALS: BP 96/59
[2020-09-06 19:07] VITALS: BP 154/94
[2020-09-06 19:08] VITALS: BP 136/87; BP 146/84
[2020-09-06 19:10] VITALS: BP 123/81
[2020-09-06 19:35] VITALS: BP 82/53
--- NOTE | 2020-09-06 19:45 | NUR ---
LOW BP REPORTED TO STERNMAN SHANON COWAN AT THIS TIEM THAT STERNMAN WILL REVIEW CHART.
[2020-09-07 00:11] VITALS: BP 108/56
--- NOTE | 2020-09-07 02:37 | NUR ---
RECEIVED IN BED HYPERSEDATED. MEDS HELD FOR ASPIRATION POSSIBILITY. LATER ON, PT BECAME MORE ALERT AND IMPULSIVE, WHICH IS PT'S NORM. NO S/S ACUTE DISTRESS NOTED OR REPORTED AT THIS TIME. WILL CONT TO MONITOR FOR ANY CHANGES IN CONDITION.
[2020-09-07 07:19] VITALS: BP 106/67
--- NOTE | 2020-09-07 10:31 | NUR ---
PT A&O TO SELF, IMPULSIVE. PATIENT EATING AND DRINKING ABOUT 70%. HE GETS OUT OF BED OFTEN BUT WILL ALLOW REDIRECTION. PATIENT CONTINUES WITH NO IV ACCESS. PATIENT REMAINS IN CONTINENT. NO SIGNS OF DISTRESS. WILL CONTINUE TO MONITOR.
[2020-09-07 20:00] VITALS: BP 103/58
[2020-09-08 07:08] VITALS: BP 100/62
--- NOTE | 2020-09-08 07:49 | NUR ---
progress pt up ad corwin but tries to go out back door redirected to bed frequently allowed to walk a few times but his only goal is to escape. had 4 bouts of urinary incontinence and 2 bouts of fecal incontinennce. skin c/d/i on back of left thigh he appears to have a bug bite red edematous no open areas or drainage noted.
--- NOTE | 2020-09-08 15:32 | NUR ---
PT A&O TO SELF, PATIENT TOLERATING DIET. PATIENT RESTING IN BED. PATIENT COOPERATIVE. PT IMPULSIVELY GETS OUT OF BED WHEN SOILED OR WANTING TO WALK. NO SIGNS OF DISTRESS. WILL CONTINUE TO MONITOR.
[2020-09-08 19:30] VITALS: BP 89/48
--- NOTE | 2020-09-08 22:41 | NUR ---
Care assumed of patient at 1915: Patient resting quietly in bed at start of shift. Alert and oriented to self only. Incontinent of bladder. Cooperative with jeanie care and linen change. Patient calm and pleasant this evening. Reddened area to right buttock observed. Barrier cream applied. Patient favors laying on his right side in bed. Attempted to re-position on left side x3 but patient continues to turn to right side. Patient took HS medication crushed without difficulty. Drank 120cc apple juice and ate 100% applesauce. No s/s of pain or discomfort. No inappropriate behaviors or impulsivity observed this evening. Will continue to monitor.
[2020-09-09 09:00] VITALS: BP 113/68
--- NOTE | 2020-09-09 09:00 | NUR ---
PT GETTING A BED BATH AND TOLERATING WELL. PT SET UP ON BREAKFAST TRAY AND FEEDING SELF. PT TOOK MEDS CRUSHED IN OATMEAL. PT NON-VERBAL AT THIS TIME. PT SEEMS COMFORTABLE AT THIS TIME.
[2020-09-09 09:05] VITALS: BP 113/68
[2020-09-09 16:15] VITALS: BP 105/72
--- NOTE | 2020-09-09 16:51 | NUR ---
REZA CAME TO SEE PT. SHE BROUGHT HIM A FROSTY. HE HAS BEEN SLEEPING ON AND OFF TODAY, PT DIDN'T EAT LUNCH BUT DID EAT BREAKFAST.
[2020-09-09 20:00] VITALS: BP 100/67
--- NOTE | 2020-09-10 04:59 | NUR ---
ASSUMED PT'S CARE @ 1900. COOPERATIVE WITH CARE. REMIANS NONVERBAL. VSS ON RA. MEDS GIVEN PER EMAR. PT SLEPT WELL THIS SHIFT. REMAINS WITH NO IV ACCESS. INCONT OF BLADDER THIS SHIFT. NO BM THIS SHIFT. CALL LIGHT WITHIN REACH. WILL CONTINUE TO MONITOR.
[2020-09-10 15:43] VITALS: BP 102/62
--- NOTE | 2020-09-10 16:12 | NUR ---
PATIENT HAS BEEN CALMER - LESS WANDERING TODAY. HAD BOWEL MOVEMENT - APPETITE GOOD FEEDS ONESELF. MEDICATIONS DISPENSED IN PUDDING AND TAKEN WITHOUT INCIDENCE. QUIET - REMAINS UNRESPONSIVE TO ANY QUESTIONS. NO AGITATION OF AGGRESSION
[2020-09-10 19:11] VITALS: BP 102/64
--- NOTE | 2020-09-10 22:13 | NUR ---
ASSUMED PT CARE AROUND 1930. NON-VERBAL. DOES NOT FOLLOW ANY COMMANDS. NO S/S ACUTE DISTRESS NOTED OR REPORTED AT THIS TIME. CARE TRNASFERRED TO ANOTHER RN AT THIS TIME.
--- NOTE | 2020-09-11 05:12 | NUR ---
Pt. has been awake about 75% of the shift. He has sounded off his bed alarm several times. Trying to get out of bed without calling for assistance. Pt. also incontinent of urine and stool. Pt. also smeared stool all over himself. Attempted to give pt. a shower, but pt. not cooperative. Pt. was cleaned up at the sink. Bed alarm is on.
--- NOTE | 2020-09-11 10:02 | NUR ---
WOUND CONSULT; THIS PATIENT IS REPORTEDLY AUTISTIC AND HAS A NO COMMUNICATIVE AFFECT. NO COMBATIVE. THE PATIENT HAS AN AREA TO THE LEFT ISCHIAL TUBEROSITY SUSPICIOUS OF A DTI. THE AREA IS INTACT. RECOMMENDATIONS; 1-LOW AIR LOSS PUMP 2-ZGUARD DISCUSSED WITH CARRINGTON
--- NOTE | 2020-09-11 11:45 | NUR ---
ASSUMED CARE AT SHIFT CHANGE. ASSESSMENT PER CHART. REPORT GIVEN TO INES AT THIS TIME. THIS RN FLOATING TO ANOTHER UNIT.
--- NOTE | 2020-09-11 14:13 | NUR ---
CM CALLED LARY Disla PT'S BRACELET FORM COVERER AT [facility] FOR POSSIBLE ASSISTANCE WITH PLACEMENT OPTIONS. CM EMAILED TWO SW[facility]S [facility] FOR POSSIBLE ASSISTANCE WITH PLACEMENT OPTIONS WELL. CM TO CONTINUE TO TRY TO [facility] SECURED [facility] CARE PLACEMENT WITH [place] MEDICAID NEAR [place]. CM TO FOLLOW INDICATED WITH DC PLANNING.
[2020-09-11 17:22] VITALS: BP 92/60; BP 94/4
--- NOTE | 2020-09-11 19:58 | NUR ---
REPORT RECEIVED FROM SHAUNNA/CARRINGTON, ASSUMED CARE AT ABOUT 1200. PATIENT SLEEPING, REPOSITIONED FOR LUNCH, PATIENT DRANK SUPPLEMENT, ONLY SMALL AMT. OF LUNCH TRAY. PATIENT INCONTINENT OF URINE/BOWEL. NO BM THIS SHIFT. WOUND CARE DONE TO LEFT POSTERIOR THIGH, ZGUARD REORDERED. PATIENT REPOSITONED Q 2HRS. PATIENT REFUSED DINNER. REPORT GIVEN TO BEBE/CARRINGTON. PATIENT DID TAKE PO MED CRUSED WITH PUDDING WITH LUNCH AND DINNER.
[2020-09-11 20:23] VITALS: BP 99/56
--- NOTE | 2020-09-11 21:48 | NUR ---
1900 ASSUMED CARE OF PT AFTER BEDSIDE REPORT. PT RESTING IN BED. 2024 BASELINE ASSESSMENT COMPLETED, PT WILL NOT ANSWER QUESTIONS AND HAS BEEN NON VERBAL, TOOK MEDS WITH PUDDING, ENCOURAGED EATING ENTIRE PUDDING HOB ELEVATED, SCD'S IN PLACE, FALL PRECAUTIONS IN PLACE, WILL CONTINUE WITH Q2 HOUR TURNS AND HOURLY ROUNDING
[2020-09-12 07:17] VITALS: BP 134/77
--- NOTE | 2020-09-12 11:58 | NUR ---
Nutrition F/U: Pt continues on 4W, awaiting placement and guardianship awarded to mother. Po intakes have been improving and staff research associate endorse that pt eats very well at most meals and likes his Ensure Pudding BID. No new wt since 09/01/20, requested RN obtain new bedscale wt to evaluate for any significant wt changes since previous visit. Continue present interventions, keep at low risk.
--- NOTE | 2020-09-12 13:38 | NUR ---
REERRAL SENT TO [facility] ADMISSIONS THERE INDICATED THAT THEY HAVE NO LTC [facility] OPEN AT THIS TIME. REFERRALS ALSO SENT TO [facility], [place], AND [facility]. CM TO FOLLOW INDICATED WITH DC PLANNING.
[2020-09-12 15:14] VITALS: BP 113/59
--- NOTE | 2020-09-12 16:18 | NUR ---
Assumed care this am, Vs stable. Pt is able to move and repostion self, would get uncomfortable with the low air loss. Able to eat on his own medications in pudding. Non verbal but would follow commands, head of bed elevated. Assisted to the toilet and had several m through out the shift. Wound care done, site is not open, red and hard. Incontinent of both bowel and bladder. Getg up and walks around the room. POC followed with no signs or verbalizatons of distress noted.
[2020-09-12 19:30] VITALS: BP 91/55
--- NOTE | 2020-09-13 02:26 | NUR ---
PT CARE ASSUMED WITH PT IN BED SLEEPING.PT ALERT AND NON VERBAL.PT UP WITH X1 ASSIST.PT IS INCONTINENT TO BOWEL AND BLADDER.PT TAKES MEDICINE IN PUDDING WITH NO DIFFICULTIES.PT APPEARED TO BE IN NO DISTRESS .WILL CONTINUE TO MONITOR POC
[2020-09-13 07:45] VITALS: BP 99/61
--- NOTE | 2020-09-13 10:13 | NUR ---
WOUND CARE F/U; THE WOUND IS MUCH IMPROVED. SEE PICTURE. THE AREA IS NOT OPEN. THE IDURATION IS DECREASING. THE PATIENT CAN REPOSITION HIMSELF AND HE RESPONDS TO DIRECTIONS INTERMITTENTLY. THE PATIENT HAS AUTISM. RECOMMEDNATIONS; WOUND CARE WILL SIGN OFF AT THIS TIME. RN PRESENT
[2020-09-13 15:39] VITALS: BP 99/65
--- NOTE | 2020-09-13 16:30 | NUR ---
FAXED REFERRAL TO [facility] RECEIVED CONFIRMTION WILL F/U WITH FACILITY IN THE AM.
[2020-09-13 19:20] VITALS: BP 101/67
--- NOTE | 2020-09-13 19:54 | NUR ---
Assumed pt care this am, VS stable pt not agitated during the shift. Walked the hals and the room. Kinza care and bed bath done, wound care done and pictures taken by wound care nurse. POC followed with no signs or verbalizations of distress noted. Endorsed to the4 night nur4se.
--- NOTE | 2020-09-14 03:34 | NUR ---
ASSUMED PT CARE AROUND 1930. ALERT AND AWAKE. DOES NOT FOLLOW ANY COMMANDS. WAS QUIET TILL ABOUT 0300, STARTED TO GETTING UP AND TRYING TO LEAVE THE ROOM AND UNIT. ALL NEEDS MET, CHECKED FOR INCONTINENCE AND HUNGER. STILL IMPULSIVE. FREQUENT VISUAL MONITORING FOR SAFETY. NO S/S ACUTE DISTRESS NOTED OR REPORTED AT THIS TIME. WILL CONT TO MONITOR FOR ANY CHANGES IN CONDITION.
--- NOTE | 2020-09-14 08:02 | NUR ---
ASSUMED CARE OF PT. AT 0700 THIS MORNING. PT. LYING IN BED ON HIS RIGHT SIDE IN POSITION. HE IS QUIET AND RESTING COMFORTABLY. COOPERATIVE WITH ASSESSMENT. HIS LUNGS ARE CTA, BOWEL SOUNDS ACTIVE X 4 QUADRANTS, + PEDAL PULSES.
[2020-09-14 13:47] VITALS: BP 87/58
[2020-09-14 13:48] VITALS: BP 100/59
--- NOTE | 2020-09-14 15:36 | NUR ---
CALLED [facility] THIS DAY TO CHECK ABOUT REFERRAL SENT YESTERDAY VM LEFT. CM TO FOLLOW REGARDING DC PLANNING.
[2020-09-14 16:55] VITALS: BP 97/58
--- NOTE | 2020-09-15 04:41 | NUR ---
ASSUMED PT CARE AROUND 1930. SLEEPING. EASILY AROUSABLE. DECREASED EPISODE OF IMPULSIVITY THIS SHIFT. NO S/S ACUTE DISTERSS NOTED OR REPORTED AT THIS TIME. WILL CONT TO MONITOR FOR ANY CHANGES IN CONDITION.
[2020-09-15 07:22] VITALS: BP 93/61
[2020-09-15 08:05] LABS: HEMATOCRIT 40.7 % (42.0-52.0); HEMOGLOBIN 13.5 gm/dL (14.0-18.0); MCHC 33.2 g/dL (28.0-37.0); MCV 90.3 fL (80.0-100.0); RBC 4.51 mil/uL (4.50-6.00); RDW 13.7 % (10.5-14.5); WBC 5.9 thou/uL (4.0-11.0)
[2020-09-15 08:19] LABS: CALCIUM 9.2 mg/dL (8.5-10.1); MAGNESIUM 2.1 mg/dL (1.8-2.4); POTASSIUM 3.8 mmol/L (3.5-5.1)
[2020-09-15 15:12] VITALS: BP 101/69
--- NOTE | 2020-09-15 15:36 | NUR ---
[facility] DECLINED ADMISSION AGAIN. CM TO SEND REFERRALS TO OUTLYING FACILITIES IN [place] AND TO MORE [place] FACILITIES IN ATTEMPT TO FINE PLACEMENT.
--- NOTE | 2020-09-15 15:56 | NUR ---
ASSUMED CARE OF PATIENT AT SHIFT CHANGE. ASSESSMENT CHARTED. MEDICATIONS GIVEN PER MAR. VSS. PATIENT IS ALERT TO SELF; NON-VERBAL MOST TIMES D/T HX. OF NEUROCOGNITIVE DISORDER. PATIENT GOT UP TODAY AND WALKED AROUND THE UNIT WITH STAND BY ASSISTANCE; REFUSED NON-SKID SOCKS. PATIENT ATTEMPTED TO ELOPE DOWN STAIRS BUT WAS REDIRECTED. GOOD INTAKE TODAY. PATIENT REPOSITIONS SELF. WOUND CARE COMPLETE; PATIENT REPOSITIONS SELF. CM STILL ON CASE FOR PLACEMENT. NO OTHER CONCERNS. WILL CONTINUE TO MONITOR AND FOLLOW PLAN OF CARE
[2020-09-15 20:00] VITALS: BP 110/66
[2020-09-16 07:31] VITALS: BP 126/73
[2020-09-16 15:38] VITALS: BP 110/51
--- NOTE | 2020-09-16 17:35 | NUR ---
ASSUMED CARE OF PATIENT THIS AM. ASSESSMENT CHARTED. MEDS GIVEN PER DEC. VSS. PATIENT IS SLEEPY AND WITHDRAWN THIS DAY. NAPS INTERMITENTLY. WAS UP WHEN INCONTINENT AND SOILED BUT NAPPED AFTER CLEANED. APPETITE WAS FAIR. HYDRATION PROMOTED. BOWEL MOVEMENTS ARE SOFTER AFTER TAKING MIRALAX. ZGUARD APPLIED TO SORE. ENCOURAGED TO REPOSITION OFTEN. STILL AWAITING PLACEMEMENT. FALL PRECAUTIONS ARE IN PLACE. DOES NOT APPEAR IN ANY DISTRESS. WILL CONTINUE TO MONITOR
--- NOTE | 2020-09-17 04:31 | NUR ---
VSS-AFEBRILE. RESTED WELL THROUGH NIGHT WITH FEW NEEDS. INCONTINENT OF URINE, NO BM THIS SHIFT. REMAINS IMPULSIVE, FALL PRECAUTIONS IN PLACE.
[2020-09-17 07:21] VITALS: BP 115/68
[2020-09-17 15:29] VITALS: BP 90/53
--- NOTE | 2020-09-17 19:32 | NUR ---
Assumed pt care this am, VS stable. Had several bm through out the day, informed night nurse to hold miralax. INcontinent of bowel and bladder, pt is able to reposition self on the bed and able to get up and ambulate in the room with nurse. Mother came to visit. No lorazepam was given since pt has not been agitated, Dr. Brooks informed. Pt was able to eat on his own, set up of tray done. POC followed with no signs of distress noted, endorsed to the night burse.
[2020-09-17 20:10] VITALS: BP 106/59
--- NOTE | 2020-09-18 04:30 | NUR ---
ALERT AND AWAKE. DOES NOT FOLLOW ANY COMMANDS. NO APPARENT PAIN. NO S/S ACUTE DISTRESS NOTED OR REPORTED AT THIS TIME. WILL CONT TO MONITOR FOR ANY CHANGES IN CONDITION.
[2020-09-18 09:49] VITALS: BP 96/56
--- NOTE | 2020-09-18 14:26 | NUR ---
ASSUMED CARE OF PATIENT A 0700. ASSESSMENT CHARTED. MEDS GIVEN PER MAR CRUSHED IN PUDDING. VS STABLE. PATIENT ALERT TO SELF AND NON-VERBAL. INCONT OF BOWEL AND BLADDER. APPETITE IS GOOD TODAY; EATS WELL WITH ONLY SET UP THIS DAY. IN BED ALL DAY THIS SHIFT. FLAT AFFECT SHOWING NO INTEREST IN PROVIDED GAMES OR ACTIVITIES THIS DAY. ZGUARD APPLIED TO WOUND AND ENCOURAGED TO REPOSITION. NO APPARENT NEEDS AT THIS TIME. FALL PRECAUTIONS ARE IN PLACE. WILL CONTINUE TO MONITOR
--- NOTE | 2020-09-18 15:05 | NUR ---
CM CALLED [facility] WITH [facility] TWICE THIS DAY AND LEFT 2 VOICEMAILS. PT'S MOTHER IS INQUIREING ABOUT HAVING PT RETURN TO [facility] WITH HER. CM NEEDING TO DISCUSS THIS OPTION WITH [facility]. CM TO FOLLOW INDICATED WITH DC PLANNING.
[2020-09-18 18:14] VITALS: BP 107/77
--- NOTE | 2020-09-18 18:36 | NUR ---
I AGREE WITH NURSING ASSESSMENT AND NURSING NOTE DONE BY BRITANY/FOOD AND BEVERAGE ORDER CLERK.
[2020-09-18 18:54] VITALS: BP 92/53
[2020-09-19 07:25] VITALS: BP 88/67
--- NOTE | 2020-09-19 09:33 | NUR ---
At 0934 left a voicemail with [facility] Disla at [phone] with [facility] indicating a need to have a one on one discussion to discuss a proactive plan of discharge given the current surge within the city during the pandemic and the importance to have patients in the proper level of care. Asked that she call and leave me an email so that we can set up a time sooner than later to assure a proper and smooth transition for this patients discharge destination. Did inform Virginia that I would be calling her back today as this matter needs immediate attention. Notified the community case manager of above.
--- NOTE | 2020-09-19 10:36 | NUR ---
Nutrition followup: pt continues to eat 85-100% most meals past several days. Needs tray set up done by nsg. Eats 100% of supplements; ensure enlive, ensure pudding. Recent weight stable at 106#. Initial bedscale weights in July of 132# possible error. Pt continues to await placement. Followup every 10 days.
--- NOTE | 2020-09-19 12:06 | NUR ---
CM CALLED AND LEFT FOR [facility] AGAIN THIS AM. CM FAXED REFERRAL TO [facility] TO SEE IF THEY MIGHT BE WILLING/ABLE TO ACCEPT PT AND TRANSFER HIS [place] MEDICAID. CM AWAITING RESPONSE.
--- NOTE | 2020-09-19 15:42 | NUR ---
Alert and orientated to self only. Calm, quiet and compliant. Took meds crushed in yogurt. Non verbal but alerts to name. Independent with eating when tray set for him. Breath sounds clear. Reg HR auscultated. Color pale pink with brisk capillary refill and palpable peripheral pulses. Incontinent of large amt yellow urine x2. Active bowel sounds over soft, flat abdomen. Up ambulating late in day requiring redirection. No s/o distress.
[2020-09-19 16:14] VITALS: BP 90/50
[2020-09-19 20:58] VITALS: BP 109/63
--- NOTE | 2020-09-20 04:22 | NUR ---
ASSUMED CARE OF PT AT 1900HRS. PT IS ALERT BUT NON-VERBAL. FALL PRECAUTION IN PLACE. PT TOOK HS MEDS CRUSHED WITH APPLESAUCE. PT APPEARS COMFORTABLE. PT WAS IMPULSIVE THIS SHIFT BUT WAS EASILY REDIRECTABLE. PT WAS ABLE TO GET COMFORTABLE AND SLEEP PART OF THE SHIFT. VSS AND NO S/S OF ACUTE DISTRESS. WILL CONTINUE TO MONITOR.
[2020-09-20 08:14] VITALS: BP 115/62
--- NOTE | 2020-09-20 12:14 | NUR ---
Call back rec'd from [facility] and they did not receive referral. New fax number obtained and the DC shoe lay out planner will refax the referral.
--- NOTE | 2020-09-20 12:16 | NUR ---
REMAINS IMPULSIVE-HIGH FALLS RISK AEB GETTING UP OUT OF BED X 2 UNASSISTED THIS [id number] SO UNABLE TO EXPRESS NEEDS TO THIS NURSE BUT AFTER CHANGING BED LINEN AND INCONTINENT PAD WHICH WERE WET ASSISTED BACK TO BED AND APPEARS TO REST QUEITLY IN BED FOR MAYO INTERVALS, INITIALLY REFUSED TO OPEN MOUTH FOR AM MEDS CRUSHED AND PLACED WITH APPLESAUCE BUT DID TAKE LATER IN AM AFTER BREAKFAST
[2020-09-20 15:41] VITALS: BP 109/48
[2020-09-20 19:45] VITALS: BP 91/44
[2020-09-21 00:25] VITALS: BP 107/69
--- NOTE | 2020-09-21 07:08 | NUR ---
ASSUMED PT CARE AROUND 1930. ALERT AND AWAKE. DOES NOT ANSWER ANY QUESTIONS OR COMMANDS. VSS. NO S/S ACUTE DISTRESS NOTED OR REPORTED AT THIS TIME.
[2020-09-21 07:47] VITALS: BP 88/49
--- NOTE | 2020-09-21 19:22 | NUR ---
Alert and nonverbal, patient slept through lunch, mom bedside. Had a shower.
[2020-09-21 19:37] VITALS: BP 99/59
--- NOTE | 2020-09-22 07:27 | NUR ---
ASSUMED PT CARE AROUND 1930. ALERT AND AWAKE. VSS. NO S/S ACUTE DISTRESS NOTED OR REPORTED AT THIS TIME. CARE TRANFERRED TO [facility]
[2020-09-22 09:09] VITALS: BP 107/66
--- NOTE | 2020-09-22 13:34 | NUR ---
ASSUMED CARES AT 0700. PT ASLEEP, SLEEPING ON/OFF THROUGHOUT THE DAY. NO APPARENT PAIN, VITALS REMAIN STABLE. PT REMAINS INCONTINENT OF BOWEL AND BLADDER, CLEANED AND BEDDINGS CHANGED NEEDED. PT EATING 100% 0F HIS MEALS. Q1H VISUAL CHECKS. CALL LIGHT WITHIN REACH. FALL PRECAUTIONS IN PLACE
[2020-09-22 18:58] VITALS: BP 97/70
--- NOTE | 2020-09-22 22:52 | NUR ---
PT SLEEPING, NON-VERVAL. INCONT OF URINE. MIRALAX HELD AT HS SINCE PT HAS BEEN HAVING LOOSE STOOLS. PT IN NO APPARENT PAIN OR DISCOMFORT. BED ALARM ON FOR SAFETY. PT CHECKED ON HOURLY ROUNDS.
[2020-09-23 07:35] VITALS: BP 87/54
[2020-09-23 15:26] VITALS: BP 106/57
--- NOTE | 2020-09-23 16:38 | NUR ---
Patient has been calm and cooperative since morning, lorazepam was not administrated due to " Not indicated".
--- NOTE | 2020-09-23 20:58 | NUR ---
Care assumed of patient at 1900: Patient bed alarm sounding at start of shift. Patient restless, agitated, uncooperative. Assisted to the bathroom, provided activity for hands, offered snack which patient refused. Patient attempting to push staff from doorway so he could walk. Attempted to educate patient on going for a walk after nursing report. Due to cognition, patient not able to comprehend education and became increasingly frustrated with staff. Day shift reports that patient refused dinner dose of Ativan PO. Patient assisted back to bed with staff assist x2. Patient soon got up again, attempting to leave room. Vital signs assessed. Due to safety of staff and patient, Ativan IM administered. After approximately 20 minutes, patient more cooperative with staff verbal and gesture instruction. Patient taken on walk around unit. Given ice cream snack. Then was assisted back to bed. Patient was able to verbalize "No" several times during attempted re-direction. Confused and forgetful. Responds to name being called only. Patient took HS medication crushed without issue. Drank cup of apple juice without issue. Currently resting quietly in bed. High fall risk precautions in place.
[2020-09-24 07:46] VITALS: BP 141/19
[2020-09-24 16:41] VITALS: BP 92/84
[2020-09-24 19:04] VITALS: BP 91/57
--- NOTE | 2020-09-25 03:57 | NUR ---
ASSUMED CARE OF PT AT 1900HRS. PT IS ALERT BUT NON-VERBAL. FALL PRECAUTION IN PLACE. ASSESSMENT CHARTED. PT TOOK MEDS CRUSHED WITH APPLESAUCE. PT WAS NOT IMPULSIVE THIS SHIFT. VSS AND NO S/S OF ACUTE DISTRESS. WILL CONTINUE TO MONITOR.
[2020-09-25 07:44] VITALS: BP 109/63
--- NOTE | 2020-09-25 12:16 | NUR ---
PATIENT CARE ASSUMED AT 0700 - PATIENT IN BED WHEN APPROACHED. NON RESPONSIVE TO QUESTIONS - RESTLESS IN BED. PREFERS TO TAKE MEDICATIONS IN APPLESAUCE HIMSELF. TWICE SPIT OUR DEPAKOTE WHEN OFFERED. REFUSED TO TAKE BUT COMPLIANT WITH ATIVAN. GETS OUT OF BED FREQUENTLY - SOMEWHAT UNSTEADY. STAFF ASSISTED WITH AMBULATION AROUND UNIT WITH GAIT BELT IN PLACE. PATIENT INCONTINENT OF BOWEL AND BLADDER. DOES NOT CONVEY WHEN NEEDING TO TOLLET. APPEARS TO UNDERSTAND WHEN ADDRESSED BUT RELUCTANT TO COMPLY - THOUGH UNDERSTANDING IS EVIDENT. APPETITE GOOD - COMPLETION OF MEALS. NO AGITATION OR AGGRESSION. DOES BECOME RESISTANT WHEN TRYING TO ENFORCE REDIRECTION BUT WILL COMPLY WITH UNDERSTANDING.
--- NOTE | 2020-09-25 14:50 | NUR ---
CM ATTEMPTED PC TO [facility] THIS DAY. CM LEFT VM. [facility] INDICATED THAT THEY WOULD LIKELY BE ABLE TO ACCEPT PT ONCE THEY ARE FREE OF COVID AND ACCEPTING NEW PATIENTS. CM TO FOLLOW INDICATED WITH DC PLANNING.
[2020-09-25 15:45] VITALS: BP 85/52
[2020-09-25 19:10] VITALS: BP 111/70
--- NOTE | 2020-09-26 05:33 | NUR ---
progress pt not as impulsive this shift. still tearful does sometimes use words to respond to questions but normally non-verbal. did not try to get oob unassisted att all this shift. ambulated in eason, has good appetite drank 100% of his hs supplemental shake. vss. incontinent of urine x 1 no stool this shift. still waiting for placement orders continue poc.
[2020-09-26 07:21] VITALS: BP 94/62
--- NOTE | 2020-09-26 11:10 | NUR ---
PATIENT NON-VERBAL. RESTING COMFORTABLY IN BED. FALL PRECAUTIONS IN PLACE. VSS. MOTHER CURRENTLY AT PATIENT BEDSIDE.
--- NOTE | 2020-09-26 13:59 | NUR ---
CM TO COMPLETE [id number] FOR [facility] TO REVIEW. REFERRAL ALSO SENT TO [facility] FOR REVIEW FOR POSSIBLE ADMISSION. CM TO FOLLOW INDICATED WITH DC PLANNING.
[2020-09-26 14:48] VITALS: BP 94/60
[2020-09-26 19:38] VITALS: BP 97/57
--- NOTE | 2020-09-27 03:04 | NUR ---
PT CARE ASSSUMED WITH PT IN BED SLEEPING.PT IS ALERT AND NON VERBAL.PT IS UP WITH X1 ASSIST.PT IS ON RA.PT APPEARED TO BE IN NO ACUTE DISTRESS .WILL CONTINUE TO MONITOR POC
[2020-09-27 05:29] VITALS: BP 102/66
[2020-09-27 07:21] VITALS: BP 100/65
--- NOTE | 2020-09-27 09:24 | NUR ---
FAXED REFERRAL TO [facility] SPOKE WITH [facility] IN ADM SHE RECEIVED REFERRAL AND THEY ARE REVIEWING.
--- NOTE | 2020-09-27 13:09 | NUR ---
Assumed pt care at 7am.Pt in bed sleeping on and off without any distress s/s. Assessment completed.Vss.Pt took am meds with breakfast and well tolerated. Dr Abbasi here,order noted. Covid 19 nasal wsab done and sent to lab.No verbal c/o.Fall bundle in place will continue to monitor.
--- NOTE | 2020-09-27 14:28 | NUR ---
REFERRAL SENT TO [facility]. THEY RECIEVED IT AND ARE REVIEWING. CM COMPLETED [id number] AND IT WAS FAXED TO BOTH FACILITIES. CM TO FOLLOW INDICATED WITH DC PLANNING.
[2020-09-27 15:25] VITALS: BP 98/58
[2020-09-27 19:03] VITALS: BP 109/67
--- NOTE | 2020-09-28 04:00 | NUR ---
ASSUMED CARE OF PT AT 1900HRS. PT IS NON-VERBAL AND NEEDS MUST BE ANTICIPATED. FALL PRECAUTION IN PLACE. PT IS INCT. PT CAN BE IMPULSIVE AT TIMES. PT TOOK HS MEDS WITH APPLESAUCE. PT SLEPT PART OF THE SHIFT. VSS AND NO S/S OF ACUTE DISTRESS. WILL CONTINUE TO MONITOR FOR CHANGES.
[2020-09-28 07:45] VITALS: BP 95/60
--- NOTE | 2020-09-28 13:48 | NUR ---
Assumed pt care at 7am.Pt in bed sleeping and sometimes watching tv as usual. Assessment completed.vss.Pt tolerated meals and meds.Pt has bowel movement early this shift and pericare given.Dr Abbasi here,order noted.Fall bundle in place.Will continue to monitor.
--- NOTE | 2020-09-28 16:08 | NUR ---
CM AWAITING PC FROM CAM IN ADMISSIONS AT [facility]. CM TO FOLLOW INDICATED WITH DC PLANNING.
[2020-09-28 16:10] VITALS: BP 104/69
[2020-09-28 19:31] VITALS: BP 128/81
--- NOTE | 2020-09-29 01:04 | NUR ---
PT CARE ASSUMED WITH PT IN BED @1900.PT IS ALERT AND NONVERBAL.PT IS UP WITH STANDBY ASSIST AND IMPULSIVE.PT TAKE MEDS WITH APPLE SAUCE.PT AWAITING PLACEMENT TO SNF.WILL CONTINUE TO MONITOR POC
[2020-09-29 07:16] VITALS: BP 110/66
--- NOTE | 2020-09-29 08:46 | NUR ---
Followup: continues to eat 100% of meals and drinking oral supplement Ensure Enlive. Extended hospitalization and awaiting placement. Followup every 10 days
--- NOTE | 2020-09-29 13:27 | NUR ---
Received awake on bed. Due medications given as prescribed, able to swallow meds w/o difficulty. On room air. Vital signs stable. On MS, not on telemetry; no complains and signs of chest pain, crushing sensation and heaviness. Assisted in ADLs. On regular diet- assisted and encouraged in eating and drinking; no nausea, no vomiting and no abdominal pain noted. No IV noted- physician. Falls bundle in place. Incontinent of bowel and bladder, checked frequently and changed as needed. Still a/w placement. No complains of pain made during assessment. To continue monitoring patient.
[2020-09-29 16:12] VITALS: BP 114/65
[2020-09-29 19:41] VITALS: BP 81/40
[2020-09-30 07:29] VITALS: BP 124/69
[2020-09-30 15:31] VITALS: BP 116/74
--- NOTE | 2020-09-30 19:14 | NUR ---
Alert, calm and cooperative, Lorazpam lunch dose not given.
[2020-09-30 19:33] VITALS: BP 106/71
--- NOTE | 2020-10-01 04:42 | NUR ---
VSS-AFEBRILE. LUNGS CLEAR-ROOM AIR. NO C/O PAIN OVERNIGHT. MULTIPLE EPISODES OF BLADDER INCONTINENCE, TWO LARGE BOWLE MOVEMENTS. OCCASIONALLY IMPULSIVE, WAS WALKED TWICE AROUND UNIT DURING SHIFT. FALL PRECAUTIONS IN PLACE, MONITORED CLOSELY.
[2020-10-01 15:19] VITALS: BP 128/79
[2020-10-01 19:50] VITALS: BP 107/67
--- NOTE | 2020-10-01 19:57 | NUR ---
PATIENT AWAKE AND AND AGITATED MOST SHIFT; IMPULISIVE, GETTING OUT OF BED AND ATTEMPTING TO GO DOWN STAIRS. STAFF WALKED W PATIENT BUT STILL AGITATED AND IMPULSIVE. NO IV ACCESS; MEDS ADMINISTERED PER MAR IN PUDDING. APPETITE GOOD TODAY. VOIDS WELL. BM TODAY. NEAR NURSES STATION D/T IMPULSIVITY. PLAN IS AWAITING FOR PLACEMENT. ENDORSED TO ÓSCAR RN.
--- NOTE | 2020-10-01 19:59 | NUR ---
REVIEWED ASSERSSMENT AND NOTE OF BRITANY SEWER PIPE CLEANER AND I AGREE.
--- NOTE | 2020-10-02 04:37 | NUR ---
ASSUMED CARE OF PT AT 1900HRS. PT ALERT BUT WAS NON-VERBAL THIS SHIFT. NEEDS MUST BE ANTICIPATED. FALL PRECAUTION IN PLACE. PT WAS IMPULSIVE AND AGITATED THIS SHIFT. PRN MEDS PROVIDED. PT IS INCT. PT WAS ABLE TO CALM DOWN ADN SLEEP PART OF THE SHIFT. VSS AND NO S/S OF ACUTE DISTRESS. WILL CONTINUE TO MONITOR.
[2020-10-02 07:14] VITALS: BP 103/64
--- NOTE | 2020-10-02 07:51 | NUR ---
ASSUMING CARE OF PATIENT NOW. ASSESSMENT CHARTED. MEDICATIONS ADMINISTERED PER DEC. VSS. PATIENT IS ALERT TO SELF BUT APPEARS AGITATED AND RESTLESS THIS SHIFT. OOB MULTIPLE TIMES THIS SHIFT. ANTI-ANXIETY MEDICATIONS ADMINISTERED IN PUDDING AND TOLERATED BY PATIENT. PATIENT TRIES TO ELOPE DOWN FLIGHT OF STAIRS LOCATED ON BACK OF UNIT. IS MEDICALLY STABLE AND JUST WAITING FOR PLACEMENT. ZGUARD APPLIED TO BUTTOCKS AND THIGH AREA W REDNESS. SNACKS AND DISTRACTION PROVIDED THIS SHIFT. VERY IMPULSIVE THIS SHIFT. FALL PRECAUTIONS IN PLACE. BED ALARM ON. WILL CONTINUW TO MONITOR.
--- NOTE | 2020-10-02 16:34 | NUR ---
CM CALLED [facility] AT [facility] THIS DAY AND LEFT VM. CM AWAITING RESPONSE. CM TO FOLLOW INDICATED WITH DC PLANNING.
[2020-10-02 19:36] VITALS: BP 100/67
[2020-10-03 05:25] VITALS: BP 134/78
--- NOTE | 2020-10-03 07:38 | NUR ---
SUPER IMPULSIVE IN THE BEGINNING OF THE SHIFT. PRN HALDOL GIVEN. SOMEWHAT EFFECTIVE. STILL GETS UP AND TRIES TO LEAVE THE ROOM AND ENTER OTHER PPL'S ROOMS. VSS. NO S/S ACUTE DISTRESS NOTED OR REPORTED AT THIS TIME. [facility]ARE [facility] TO [facility]
[2020-10-03 07:43] VITALS: BP 109/63
--- NOTE | 2020-10-03 14:00 | NUR ---
ASSUMED PT CARE THIS AM. PT VSS, ALERT TO SELF. PT TOOK PORTION OF MEDS THIS AM, BUT REFUSED TO TAKE ALL OF THEM. HOWEVER, PT IS EATING MEALS WELL AND VERY ALERT TODAY. HYDRATION ENCOURAGED. FALL PRECAUTIONS IN PLACE.
--- NOTE | 2020-10-03 15:46 | NUR ---
[facility] IS ACCEPTING OF PT. THEY NEED A [place] MEDICIAD APPLICATION FILED PRIOR TO ADMISSION. CM SPOKE WITH RUPERTO AND MILLIE WITH MED ASSIST AND IT WAS INDICATED THAT THEY COULD COMPLETE APPLICATION USING [facility]'S ADDRESS. CM PROVIDED IT. CM CALLED AND LEFT PT'S MOTHER/GUARDIAN A VM INDICATING THE ABOVE. [facility] IS TO COMPLETE APPLICATION AND BRING IT TO UNIT TOMORROW MORNING FOR PT'S MOTHER TO SIGN AND THEN MED ASSIST WITH SUBMIT IT. CM TO FOLLOW INDICATED WITH DC PLANNING.
[2020-10-03 19:36] VITALS: BP 107/68
--- NOTE | 2020-10-04 07:33 | NUR ---
Assumed pt care at 1900. Pt alert to self,drowsy but easily arousable. Took meds crushed in icecream w/o problems. Incontinent of bladder, pericare done as needed and moisture barrier applied.Pt had an episode of mourning and face turning pink,VSS,fan turned on and pt encouraged to take deep breathes and calm down w/o further episodes noted. Fall precautions in place in place,frequent monitoring done on pt.
[2020-10-04 07:53] VITALS: BP 92/51
--- NOTE | 2020-10-04 10:55 | NUR ---
ASSUMED PT CARE THIS AM. PT VSS, ALERT. PT HAD COMPLETE BED CHANGE THIS AM, PT APPEARS TO BE STRAINING TO HAVE A BOWEL MOVEMENT. FACE IS SLIGHTLY RED AND PT IS SWEATING. REPORTED TO DR AND DR ORDERED MEDICATION TO ALLOW PT TO HAVE A BM. PT EATING AND DRINKING WELL. TO DO A COVID TEST TODAY.
--- NOTE | 2020-10-04 14:39 | NUR ---
PT'S MOTHER VISTED THIS AM AND SIGNED THE [place] MEDICAID APPLICATION. CM ALERTED MILLIE WITH [facility] AND SHE IS TO COLLECT APPLICATION TO FILE IT. CM TO NOTIFY CAM WITH [facility] THAT APPLICATION HAD BEEN COMPLETED AND SUBMITTED. COVID TEST ORDERED AND COLLECTED. HOPEFUL FOR POSSIBLE DC IN NEXT 24-48 HRS TO [facility]. [id number] ALREADY COMPLETED AND SENT TO FACILITY. CM TO FOLLOW INDICATED WITH DC PLANNING. PT'S MOTHER IS AWARE AND AGREEABLE.
[2020-10-04 15:29] VITALS: BP 113/76
[2020-10-04 19:20] VITALS: BP 134/86
[2020-10-04 20:01] LABS: HEMATOCRIT 42.9 % (42.0-52.0); HEMOGLOBIN 14.2 gm/dL (14.0-18.0); MCHC 33.1 g/dL (28.0-37.0); MCV 90.6 fL (80.0-100.0); RBC 4.74 mil/uL (4.50-6.00); RDW 14.2 % (10.5-14.5); WBC 14.5 thou/uL (4.0-11.0)
[2020-10-04 20:13] LABS: CALCIUM 9.8 mg/dL (8.5-10.1); CREATININE 1.1 mg/dL (0.7-1.3); POTASSIUM 3.9 mmol/L (3.5-5.1); TOTAL BILIRUBIN 0.3 mg/dL (0.2-1.0); TOTAL PROTEIN 8.2 g/dL (6.4-8.2)
--- NOTE | 2020-10-05 00:40 | NUR ---
Assumed pt care at 1900. Awake/alert, low grade temp 99.2. Pt observed shaking and breathing heavily w/o sweating again. Nita LUNCH COUNTER MANAGER notified of lab results and pt's behaviors. N.o for CXR,UA,blood cx written. Attempted to obtain UAX2 via straight cath w/o any success,pt has an enlarged and unable to advance mayes,LUNCH COUNTER MANAGER notified. Will attempt to get a clean catch though pt keeps pulling off urinal when placed. Incontinent of bladder constantly. Resting quietly w/o any distress noted,will continue to monitor pt.
[2020-10-05 03:31] LABS: URINE BILIRUBIN NEGATIVE (Negative); URINE BLOOD 1+ (Negative); URINE CLARITY CLEAR; URINE COLOR YELLOW; URINE GLUCOSE-RANDOM* NEGATIVE (Negative); URINE KETONES NEGATIVE (Negative); URINE LEUKOCYTES 1+ (Negative); URINE NITRITE NEGATIVE (Negative); URINE PROTEIN (DIPSTICK) TRACE (Negative); URINE UROBILINOGEN 0.2 E.U./dl (0.2-1.0)
[2020-10-05 03:42] LABS: SQUAMOUS 0-3 Few /LPF (0-3); URINE WBC 6-15 Few /HPF (0-5)
[2020-10-05 03:43] LABS: BACTERIA 1-9 Few /HPF (None Seen); CASTS None Seen /LPF (None Seen); CRYSTALS None Seen /LPF (None Seen); MUCUS 0-3 Light strn/LPF (None Seen)
[2020-10-05 07:09] VITALS: BP 83/60
--- NOTE | 2020-10-05 13:29 | NUR ---
ASSUMED PT CARE THIS AM. PT VITAL SIGNS BACK TO NORMAL RANGE FOR HIM. PT ALERT, AGITATED TODAY, HOWEVER. PT BEING IMPULSIVE AND WILL NOT STAY IN BED. MEDS GIVEN PER EMAR TO CALM HIM DOWN, BUT HE IS STILL ACTING IMPULSIVELY. PT HAS NOT BEEN STRAINING HIMSELF TODAY. ANTIBIOTIC SWITCHED FROM TABLET TO LIQUID, TAKEN WELL. PT DID VOMIT CHUNKS THIS AM, APPEARED TO HAVE WHOLE FOOD PIECES IN IT. ADVISED DOCTOR ABOUT THIS.
--- NOTE | 2020-10-05 14:49 | NUR ---
aftab notified [facility] that cm faxed over his negative covid result. cm left message for rosendo and don. cm called 2nd time spoke with maya who stated " he not on my list and we already took 3 admits today, you will have to talk with don and rosendo."/maya caregivers non medical. when ready to dc: bedside nurse to call report [phone] fax dc order to [phone] send chart copy.
[2020-10-05 15:24] VITALS: BP 95/80
[2020-10-05 19:17] VITALS: BP 113/72
--- NOTE | 2020-10-06 07:02 | NUR ---
VSS-AFEBRILE. RESTED WELL THROUGH NIGHT WITH FEW NEEDS. OCCASIONALLY IMPULSIVE. FALL PRECAUTIONS IN PLACE.
[2020-10-06 08:07] VITALS: BP 88/55
--- NOTE | 2020-10-06 11:05 | NUR ---
spoke with rosendo with [facility] stated she never got fax kristy yesterday, aftab confimed [facility]ocasta fax and she agreed that was fax to [phone], she requested cm refax and faxed to [phone] that come to me direct per rosendo.
--- NOTE | 2020-10-06 17:33 | NUR ---
ASSUMED CARE OF PATIENT AT 0700. ASSESSMENT CHARTED. MEDICATIONS ADMINISTERED CRUSHED IN PUDDING. VSS; AFEBRILE W LESS TREMORS. IMPULSIVE WHEN SOILED/WET. BMX3 THIS DAY; UNFORMED. STATED "BATHROOM" WAS HIS CONCERN. ATE SNACKS AND MEALS W NO VOMITING OR DISTRESS. FALL PRECAUTIONS IN PLACE. NEAR NSS FOR IMPULSIVITY. WILL CONTINUE TO MONIOTR AND FOLLOW PLAN OF CARE
[2020-10-06 20:05] VITALS: BP 108/70
--- NOTE | 2020-10-07 05:34 | NUR ---
ASSUME CARE OF PT AT 1900HRS. PT ALERT BUT NON VERBAL THIS SHIFT. FALL PRECAUTION IN PLACE. PT WAS INCT. ASSESSMENT CHARTED. PT TOOK MEDS CRUSHED WITH APPLESAUCE. PT WAS NOT IMPULSIVE THIS SHIFT. PT WAS ABLE TO GET COMFORTABLE AND SLEEP PART OF THE SHIFT. VSS AND NO S/S OF ACUTE DISTRESS. WILL CONTINUE TO MONITOR.
[2020-10-07 07:21] VITALS: BP 102/71
[2020-10-07 14:12] VITALS: BP 118/76
--- NOTE | 2020-10-07 15:31 | NUR ---
Assumed pt care at 7am.Pt in bed sleeping on and off.Assessment completed.vss. Assisted pt with tray setup at all meals.Pt unable to swallow chicken pieces at lunch.Stamping Die Try Out Worker assisted pt to look for upper denture but not found.Pt only able to eat soft food.Pt mom here and reported that pt's denture has been broken sometimes ago and unable to take pt out to dentist for another.Pt has large soft bm today.Complete bath and bed change done.Fall bundle in place and will monitor to monitor.
--- NOTE | 2020-10-08 02:07 | NUR ---
PT CARE ASSUMED WITH PT WALKING IN THE HALLWAY WITH STAFF.PT CALM AND REMAINED IN BED THROUGHOUT THE SHIFT WITH NO DISTRESS OR AGITATION.PT WAITING PLACEMENT TO TO GO TO A SNF
[2020-10-08 07:23] VITALS: BP 110/79
[2020-10-08 11:44] LABS: ABSOLUTE NEUTROPHILS 2.6 thou/uL (1.4-8.2); BASOPHILS 1.5 % (0.0-2.0); EOSINOPHILS 6.4 % (0.0-3.0); HEMATOCRIT 40.9 % (42.0-52.0); HEMOGLOBIN 13.7 gm/dL (14.0-18.0); LYMPHOCYTES 29.1 % (24.0-44.0); MCH 30.2 pg (26.0-34.0); MCHC 33.4 g/dL (28.0-37.0); MCV 90.5 fL (80.0-100.0); MONOCYTES 8.7 % (1.0-8.0); PLATELET COUNT 223 thou/uL (150-400); POLYS 54.3 % (36.0-66.0); RBC 4.52 mil/uL (4.50-6.00); RDW 13.5 % (10.5-14.5); WBC 4.8 thou/uL (4.0-11.0)
[2020-10-08 12:03] LABS: ALBUMIN 3.5 g/dL (3.4-5.0); CALCIUM 9.4 mg/dL (8.5-10.1); MAGNESIUM 2.2 mg/dL (1.8-2.4); POTASSIUM 3.9 mmol/L (3.5-5.1); TOTAL BILIRUBIN 0.5 mg/dL (0.2-1.0); TOTAL PROTEIN 7.3 g/dL (6.4-8.2)
[2020-10-08 19:11] VITALS: BP 97/61
--- NOTE | 2020-10-08 19:31 | NUR ---
Assumed pt care at 7am.Pt in and out of bed with assist.Assessment completed. vss.Dr Mathew here,order noted.Assisted pt with tray setup at [facility].Fair appetite.Pr mom here to visit later this evening.Pt refused dinner because his mom brought one bag of chocolate candy and pt nearly finished it.Fall bundle in place.Will continue to monitor.
--- NOTE | 2020-10-09 01:47 | NUR ---
ASSUMED CARE OF PT AT 1900HRS. PT ALERT BUT NOT VERBAL THIS SHIFT. FALL PRECAUTON IN PLACE. ASSESSMENT CHARTED. ABX TREATMENT CONTINUED. PT APPEARS TO BE COMFORTABLE. UA OBTAINED WITH CONDOM CATH IT IS DIFFICULT TO STRAIGHT CATH PT. PT APPEARS TO BE COMFORTABLE. WILL CONTINUE TO MONITOR.
[2020-10-09 07:44] VITALS: BP 96/63
--- NOTE | 2020-10-09 09:24 | NUR ---
Followup: Nutrition status stable as pt with variable intake 0-80% however consistently drinking Ensure Enlive tid which provides 1080 beverly and 60g protein. Awaiting placement. Low nutrition risk and follow every 10-12 days
--- NOTE | 2020-10-09 13:21 | NUR ---
ASSUMED PT CARE THIS AM. PT ALERT AND AWAKE TODAY. PT UP AND WALKING AROUND UNIT, REDIRECTABLE TO BED AFTER WALKING AORUND THE UNIT. PT DID NOT TAKE ALL OF MEDS THIS AM. PT AMBULATORY TO RESTROOM TODAY WITHOUT ISSUE.
--- NOTE | 2020-10-09 14:36 | NUR ---
CM SPOKE IWHT CAM THIS AM. SHE INDICATED THAT THEY HAD RECEIVED REVISED [id number]... CM INDICATED THAT PT DOESN'T HAVE DX OF AUTISM THAT PT HAS NEUROCOGNITIVE DISORDER AND THEREFORE DOESN'T TRIGGER A LEVEL TWO TUS NONE HAD BEEN COMPLETED. SHE INDICATED THAT SHE HAD RECIEVED [place] MEDICAID APPLICATION. SHE WAS SUBMITTING INFO TO [facility] FOR REVIEW. CAM CALLED BACK AND REQUESTED UPDATED NURSES NOTES FROM 09/26-10/09, PHYSISIAN PROG NOTES, UPDATED MEDS, AND LABS. CM FAXED THIS INFO TO CAM AT . CM FOLLOWING REGARDING HOPEFUL DC PLANNING.
[2020-10-09 16:54] VITALS: BP 103/67
[2020-10-09 19:24] VITALS: BP 105/64
--- NOTE | 2020-10-10 04:53 | NUR ---
ASSUMED CARE OF PT AT 1900HRS. PT ALERT BUT NON-VERBAL. FALL PRECAUTION IN PLACE. ASSESSMENT CHARTED. PT IS IMPULSIVE AT TIMES. PT TOOK ALL MEDS WITH APPLESAUCE. PT WAS ABLE TO GET COMFORTABLE AND SLEEP. ASSESSMENT CHARTED. VSS AND NO S/S OF ACUTE DISTRESS. WILL CONTINUE TO MONITOR.
[2020-10-10 08:16] VITALS: BP 87/57
--- NOTE | 2020-10-10 11:19 | NUR ---
ASSUMED PT CARE THIS AM. PT VSS, ALERT AND AWAKE. PT TOOK MEDS WELL THIS AM. EATING WELL, HYDRATION ENCOURAGED. PT CALM AND NOT ATTEMPTING TO GET OUT OF BED AT THIS TIME.
[2020-10-10 16:13] VITALS: BP 93/53
[2020-10-10 19:16] VITALS: BP 93/58
--- NOTE | 2020-10-11 03:16 | NUR ---
ASSUMED CARE OF PT AT 1900HRS. PT IS ALERT BUT NON-VERBAL. FALL PRECAUTION IN PLACE. NEEDS MUST BE ANTICIPATED. PT IS INCT. ASSESSMENT CHARTED. PT WAS QAMAR TO GET COMFORTABLE AND SLEEP PART OF THE SHIFT. VSS AND NO S/S OF ACUTE DISTRESS WILL CONTINUE TO MONITOR.
--- NOTE | 2020-10-11 11:56 | NUR ---
CM CALLED AND SPOKE WITH CAM IN ADMISSIONS AT [facility] THIS AM AN SHE INDICATED THAT HER FINIANCIAL TEAM INDICATED THAT PT WON'T QUALIFY FOR [place] MEDICA[place] HE IS STILL A [place] RESIDENT... CM INDICATED THAT AT THIS POINT I DON'T HAVE A RESOULTION FOR THAT ISSUES CM WOULD UNDERSTAND THAT PT WOULD NEED TO LIVE IN [place] FOR 30 DAYS TO ESTABLISH RESIDENCY. AT THIS TIME THEY CAN'T ACCEPT HIM BECAUSE OF THAT. CM TO FOLLOW INDICATED WITH DC PLANNING.
--- NOTE | 2020-10-11 19:38 | NUR ---
ASSUMED CARE OF PATIENT AT 0700. ASSESSMENT CHARTED. MEDICATIONS ADMINISTERED PER MAR IN PUDDING. ASSESSMENT CHARTED. VSS. PATIENT REMAINS AWAITING FOR PLACEMENT. AFEBRILE AND NO S/S OF INFECTION. OFF ABX NOW PER PROVIDER. INCONT OF B&B; BARRIER CREAM APPLIED. IMPULSIVE AND FREQUENTLY CHECKED. ENDORSED TO NOC. RN
--- NOTE | 2020-10-11 20:58 | NUR ---
I AGREE WITH NURSING ASSESSMENT AND NURSING NOTE DONE BY BRITANY/MAMMALOGY TEACHER.
[2020-10-12 07:44] VITALS: BP 80/57
--- NOTE | 2020-10-12 10:29 | NUR ---
CM SPOKE WITH PT'S MOTHER YESTERDAY SHE IS AGREEABLE WITH [facility] DC TO [facility]. SHE QUESTIONED HOW HER HAVING [place] GUARDIANSHIP WOULD AFFECT HIM GOING TO A [place] FACILITY. CM TO INQUIRE. SHE ASKED THAT REFERRALS BE SENT TO FACILITIES FURTHER OUT IN [place]. REFERRALS TO BE SENT TO [facility], [facility], [facility] IN [place], AND [facility] IN [place] [facility]. CM TO FOLLOW INDICATED WITH DC PLANNING.
--- NOTE | 2020-10-12 10:43 | NUR ---
PT ALERT, NON VERBAL, VSS, NO APPARENT PAIN. PATIENT TOLERATING BREAKFAST. MONITORING FOR SAFETY. SCANT BLEEDING OBSERVED WITH MAIA CARE AFTER SMALL BM. NO SIGNS OF DISTRESS. WILL CONTINUE TO MONITOR.
[2020-10-12 14:59] VITALS: BP 108/63
[2020-10-13 08:54] VITALS: BP 105/48
--- NOTE | 2020-10-13 11:38 | NUR ---
FAXED REFERRAL TO [facility] DOES NOT HAVE A LOCKED MEMORY CARE UNIT AND CANNOT MEET PT NEEDS, FAXED REFERRAL TO [facility] SPOKE WITH MARILEE IN ADM THEY DO NOT HAVE A LOCKED MEMORY CARE UNIT,
--- NOTE | 2020-10-13 12:15 | NUR ---
Received awake on bed. Due medications given as prescribed, able to swallow meds w/o difficulty. On room air. Vital signs stable. On mechanically altered chopped diet- tolerating well; no nausea, no vomiting and no abdominal pain noted; assisted and encouraged in eating and drinking. Incontinent of bowel and bladder, checked frequently and changed as needed. Falls bundle in place. No IV noted- physician aware. On MS, not on telemetry; no signs and complains of chest pain, crushing sensation and heaviness. Pt's mother visited today- update given. Assisted in ADLs. To continue monitoring patient.
[2020-10-13 15:22] VITALS: BP 108/69
[2020-10-13 16:25] LABS: HEMATOCRIT 42.6 % (42.0-52.0); HEMOGLOBIN 14.3 gm/dL (14.0-18.0); MCH 30.2 pg (26.0-34.0); MCHC 33.5 g/dL (28.0-37.0); MCV 90.1 fL (80.0-100.0); RBC 4.72 mil/uL (4.50-6.00); RDW 13.9 % (10.5-14.5); WBC 9.6 thou/uL (4.0-11.0)
[2020-10-13 16:30] LABS: URINE BILIRUBIN NEGATIVE (Negative); URINE BLOOD NEGATIVE (Negative); URINE CLARITY CLEAR; URINE COLOR YELLOW; URINE GLUCOSE-RANDOM* 1+ (Negative); URINE KETONES NEGATIVE (Negative); URINE LEUKOCYTES NEGATIVE (Negative); URINE NITRITE NEGATIVE (Negative); URINE PROTEIN (DIPSTICK) NEGATIVE (Negative); URINE SPECIFIC GRAVITY 1.015 (1.005-1.035); URINE UROBILINOGEN 0.2 E.U./dl (0.2-1.0)
[2020-10-13 16:37] LABS: CALCIUM 9.9 mg/dL (8.5-10.1); CREATININE 1.3 mg/dL (0.7-1.3); POTASSIUM 3.7 mmol/L (3.5-5.1)
[2020-10-13 19:32] VITALS: BP 99/61
[2020-10-14 05:25] LABS: HEMATOCRIT 39.5 % (42.0-52.0); HEMOGLOBIN 13.2 gm/dL (14.0-18.0); MCH 30.1 pg (26.0-34.0); MCHC 33.4 g/dL (28.0-37.0); MCV 90.2 fL (80.0-100.0); RBC 4.37 mil/uL (4.50-6.00); RDW 13.8 % (10.5-14.5); WBC 17.1 thou/uL (4.0-11.0)
[2020-10-14 05:42] LABS: CALCIUM 9.2 mg/dL (8.5-10.1); CREATININE 1.1 mg/dL (0.7-1.3); POTASSIUM 3.7 mmol/L (3.5-5.1)
[2020-10-14 07:26] VITALS: BP 111/68
--- NOTE | 2020-10-14 10:32 | NUR ---
Received awake on bed. Due medications given as prescribed, given with pudding, able to swallow w/o difficulty. On room air. Vital signs stable, monitored for any febrile episodes. On mechanically altered chopped diet- tolerating well; no nausea, no vomiting and no abdominal pain notes; assisted and encouraged in eating and drinking. On MS, not on telemetry; no complains and signs of chest pain, crushing sensation and heaviness. Incontinent of bowel and bladder, checked frequently and changed as needed.
[2020-10-14 15:46] VITALS: BP 104/64
[2020-10-14 19:53] VITALS: BP 105/61
[2020-10-15 05:59] LABS: HEMATOCRIT 36.9 % (42.0-52.0); HEMOGLOBIN 12.2 gm/dL (14.0-18.0); MCH 29.9 pg (26.0-34.0); MCHC 33.1 g/dL (28.0-37.0); MCV 90.4 fL (80.0-100.0); RBC 4.08 mil/uL (4.50-6.00); RDW 13.6 % (10.5-14.5)
[2020-10-15 06:01] LABS: CALCIUM 9.2 mg/dL (8.5-10.1); CREATININE 1.1 mg/dL (0.7-1.3); POTASSIUM 3.5 mmol/L (3.5-5.1)
--- NOTE | 2020-10-15 06:16 | NUR ---
Pt. rested quietly during the night when checked on during frequent rounds. He will not let this nurse insert iv. Iv med not given due to no access. He is non-verbal. Incontinent of urine, but no bowel movement this shift. Bed alarm is on.
[2020-10-15 07:11] VITALS: BP 92/54
--- NOTE | 2020-10-15 11:24 | NUR ---
ASSUMED PT CARE THIS AM. PT VSS, ALERT AND AWAKE. PT HAD A BM THIS AM, STOOL SAMPLE SENT TO LAB. PT REMAINS INCONTINENT OF BOWEL AND BLADDER. EATING WELL. TOOK MEDS THIS AM WITHOUT COMPLAINT.
[2020-10-15 15:10] VITALS: BP 98/59
[2020-10-15 20:25] VITALS: BP 98/74
[2020-10-16 04:01] LABS: CALCIUM 9.8 mg/dL (8.5-10.1); POTASSIUM 3.9 mmol/L (3.5-5.1)
[2020-10-16 04:17] LABS: HEMATOCRIT 39.7 % (42.0-52.0); HEMOGLOBIN 12.9 gm/dL (14.0-18.0); MCH 29.6 pg (26.0-34.0); MCHC 32.5 g/dL (28.0-37.0); MCV 90.9 fL (80.0-100.0); RBC 4.37 mil/uL (4.50-6.00); RDW 13.5 % (10.5-14.5); WBC 12.3 thou/uL (4.0-11.0)
[2020-10-16 05:25] VITALS: BP 100/65
--- NOTE | 2020-10-16 07:30 | NUR ---
Assumed pt care at 1900. Alert,awake. Febrile at the beginning of shift but temp down to 98.4. Incontinent of B&B, redness noted on periarea,Zguard applied. Pt has no IV,and refused to be inserted, Bridget DRY PRIMER POWDER BLENDER notified indicated will follow up during the day. Fall precautions in place.
[2020-10-16 07:44] VITALS: BP 82/52
--- NOTE | 2020-10-16 11:09 | NUR ---
Received awake on bed. Due medications given as prescribed, crushed and mixed with pudding. On MS, not on telemetry; no complains and signs of chest pain, crushing sensation and heaviness. On room air. Vital signs stable. On mechanically altered chopped diet- tolerating well; no nausea, no vomiting and no abdominal pain noted; assited and encouraged in eating and drinking. Assisted in ADLs, falls bundle in place. Incontinent of bowel and bladder, checked frequently and changed as needed. No IV noted- on IV antibiotics- talked to Dr Orellana this AM that pt easy to insert an IV but removes it right after insertion no matter how much it is wrapped and secured; will shift antibiotics to oral instead. To continue monitoring patient.
--- NOTE | 2020-10-16 16:27 | NUR ---
MILLIE WITH [employer] INDICATED THAT [place] MEDICAID ASKED FOR THE NAME OF THE FACILITY THAT PT IS LOOKING TO GO TO. CM INDICATED [facility]. CM TO FOLLOW INDICATED WITH HOPEFUL DC PLANNING. PT HAS FEVER OF UNKNOWN ORIGIN.
[2020-10-16 17:25] VITALS: BP 100/65
[2020-10-16 19:51] VITALS: BP 105/61
[2020-10-17 03:43] LABS: HEMATOCRIT 39.4 % (42.0-52.0); HEMOGLOBIN 13.2 gm/dL (14.0-18.0); MCH 30.3 pg (26.0-34.0); MCHC 33.4 g/dL (28.0-37.0); MCV 90.7 fL (80.0-100.0); RBC 4.35 mil/uL (4.50-6.00); RDW 13.7 % (10.5-14.5); WBC 9.5 thou/uL (4.0-11.0)
[2020-10-17 04:20] LABS: CALCIUM 9.4 mg/dL (8.5-10.1); CREATININE 0.9 mg/dL (0.7-1.3); POTASSIUM 3.7 mmol/L (3.5-5.1)
--- NOTE | 2020-10-17 04:43 | NUR ---
ASSUMED CARE AT 1900. PT IS AWAKE, AND NON VERBAL. UNABLE TO ACCURATELY ASSESS ORIENTATION. MEDICATIONS GIVEN PER MAR. PT IS INCONTINENT AND IMPULSIVE AT TIMES. ON ROOM AIR AND DOES REQUIRE A ROOM NEAR THE NURSES STATION WITH FREQUENT ROUNDING. FALL PRECAUTIONS ARE IN PLACE, CALL LIGHT IS WITHIN REACH. WILL CONTINUE TO MONITOR.
[2020-10-17 08:20] VITALS: BP 106/64
--- NOTE | 2020-10-17 11:20 | NUR ---
Received awake on bed. On mechanically altered chopped diet- tolerating well; assisted in eating and drinking; no nausea, no vomiting and no abdominal pain. On MS, not on telemetry; no complains and signs of chest pain, crushing sensation and heaviness. On room air. Vital signs stable. Incontinent of bowel and bladder, checked frequently and changed as needed. No IV access noted- Dr Orellana informed and aware. Assisted in ADLs. To continue monitoring patient.
[2020-10-17 14:10] VITALS: BP 102/68
[2020-10-17 19:41] VITALS: BP 104/61
--- NOTE | 2020-10-18 02:40 | NUR ---
PT CARE ASSUMED WITH PT IN BED WATCHING TV.PT IS ALERT AND NONVERBAL.PT HAD NO HIGH TEMPERATURES DURING SHIFT.PT INCONTINENT TO BOWEL AND BLADDER.PT APPEARED TO BE IN NO ACUTE DISTRESS DURING SHIFT
[2020-10-18 07:30] VITALS: BP 82/64
--- NOTE | 2020-10-18 12:36 | NUR ---
Received awake on bed. Due medications given as prescribed, able to swallow meds w/o difficulty. On room air. Vital signs stable, no fever noted. On mechanically altered diet- tolerating well; assisted and encouraged in eating and drinking; no nausea, no vomiting and no abdominal pain noted. Assisted in ADLs. Falls bundle in place. No IV noted- physician aware. On MS, not on telemetry; no complains and signs of chest pain, crushing sensation and heaviness. Meds crushed and mixed with apple sauce. To continue monitoring patient.
[2020-10-18 15:21] VITALS: BP 108/74
--- NOTE | 2020-10-18 16:17 | NUR ---
CM CALLED [facility] TO INQUIRE TO WHETHER THEY HAD OPENINGS FOR LTC. CM SPOKE WITH TRIAGE NURSE AND SHE INDICATED THAT THEY DON'T HAVE LTC PATIENTS THAT PEOPLE DON'T LIVE THERE. SHE INDICATED THAT THERE ARE THOSE WHO IHAVE NEEN THERE FOR A YEAROR TWO AND HAVEN'T MET DISCHARGE POTENTIAL BUT THEY DON'T TAKE PATIENTS FOR LTC PLACEMENT. CM TO ASK DC LENS MOLDER TO FAX REFERRAL TO [facility] AND [place]. CM TO FOLLOW INDICATED WITH DC PLANNING.
[2020-10-18 19:30] VITALS: BP 101/59
--- NOTE | 2020-10-19 02:45 | NUR ---
PT CARE ASSUMED WITH PT IN BED .PT IS ALERT AND NONVERBAL.PT IS INCONTINENT TO BOWEL AND BLADDER.PT APPEARED TO BE IN NO ACUTE DISTRESS.MEDICATION TAKEN WITH NO ISSUES.WILL CONTINUE TO MONITOR
[2020-10-19 07:24] VITALS: BP 113/82
--- NOTE | 2020-10-19 10:21 | NUR ---
451- Spoke with [facility] [employer] Inspector of Geriatric Services; Dr. Aguirre and DCP faxing referrals today to [facility]- [phone] and [place], [place] at [phone].
[2020-10-19 14:57] VITALS: BP 102/64
--- NOTE | 2020-10-19 18:13 | NUR ---
Assumed pt care at 7am.Pt in and out of bed with assist.Assessment completed. vss.Asssisted pt with tray setup and feeding.Good appetite.Pt took meds without difficulty.Mom her to visit.No verbal c/o.Fall bundle in place.Will continue to monitor.
[2020-10-19 19:46] VITALS: BP 99/56
[2020-10-20 07:13] VITALS: BP 100/62
--- NOTE | 2020-10-20 07:45 | NUR ---
Assumed pt care at 1900. Alert to self only, impulsive and getting up frequently w/o waiting for help. Incontinent of B&B,redness on buttocks;zguard applied prn. Fall precautions in place,will continue to monitor pt.
--- NOTE | 2020-10-20 09:32 | NUR ---
ASSUMED PT CARE THIS AM. PT VSS, ALERT TO SELF. PT AWAKE AND COOPERATIVE. TOOK MEDS WELL WITHOUT COMPLAINT. NO PAIN NOTED. PT REMAINS INCONTINENT. NO IV. FALL PRECAUTIONS IN PLACE.
[2020-10-20 15:40] VITALS: BP 100/62
[2020-10-20 19:42] VITALS: BP 102/70
--- NOTE | 2020-10-21 03:44 | NUR ---
ASSUMED CARE OF PT AT 1900HRS. PT IS ALERT BUT IS NON-VERBAL. FALL PRECAUTION IN PLACE. PT IS INCT AND NEEDED TO BE CLEANED UP SEVERAL TIMES. PT TOOK ALL HS MEDS WITH APPLESACE. PT WAS ABLE TO GET COMFORTABLE AND SLEEP PART OF THE SHIFT. VSS AND NO S/S OF ACUTE DISTRESS. WILL CONTINUE TO MONITOR.
[2020-10-21 07:21] VITALS: BP 109/64
--- NOTE | 2020-10-21 10:12 | NUR ---
ASSUMED PT CARE THIS AM. PT VSS, ALERT. PT COOPERATIVE WITH STAFF, TOOK MEDS WELL WITHOUT COMPLAINT. FALL PRECAUTIONS IN PLACE. PT REMAINS INCONTINENT OF BOWEL AND BLADDER.
[2020-10-21 15:06] VITALS: BP 122/78
[2020-10-21 20:00] VITALS: BP 126/72
--- NOTE | 2020-10-22 04:40 | NUR ---
PROGRESS PT LAYING QUIETLY IN BED ALL SHIFT SLEPT FROM 2100 UNTIL THIS AM VSS, AFEBRILE NO ATTEMPTS TO GET OOB. CONTINUE TO MONITOR
[2020-10-22 08:00] VITALS: BP 83/47
[2020-10-22 11:22] LABS: HEMATOCRIT 41.6 % (42.0-52.0); HEMOGLOBIN 13.8 gm/dL (14.0-18.0); MCHC 33.1 g/dL (28.0-37.0); MCV 90.6 fL (80.0-100.0); RBC 4.59 mil/uL (4.50-6.00); RDW 13.3 % (10.5-14.5); WBC 8.7 thou/uL (4.0-11.0)
[2020-10-22 11:37] LABS: CALCIUM 9.7 mg/dL (8.5-10.1); MAGNESIUM 2.2 mg/dL (1.8-2.4); POTASSIUM 3.9 mmol/L (3.5-5.1)
[2020-10-22 12:00] VITALS: BP 88/58
[2020-10-22 15:31] VITALS: BP 91/59
--- NOTE | 2020-10-22 22:16 | NUR ---
ASSUMED CARE OF PT AT 0700. PT IS ALERT AND NON-VERBAL. HYPOTENSIVE THIS AM AND DOES NOT APPEAR TO HAVE ANY SYMPTOMS, ORDERS FOR IV FLUIDS OBTAINED. IV PLACED TO RIGHT AC AND FLUIDS ADMINISTERED, NON-VIOLENT RESTRAINS TO BILATERAL ARMS ORDERED AND PLACED DUE TO PT ATTEMPTS TO REMOVE IV ACCESS. RESTRAINTS REMOVED IMMEDIATELY FOLLOWING COMPLETION OF INFUSION AND PT REMOVED IV ACCESS SHORTLY AFTER. BLOOD PRESSURE FOLLOWING INFUSION 88/58, PROVIDER NOTIFIED AND ORDERS TO MONITOR PATIENT AT THIS TIME. FALL PRECAUTIONS IN PLACE AND NURSING WILL CONTINUE TO MONITOR.
--- NOTE | 2020-10-23 03:40 | NUR ---
PROGRESS PT ALERT AND AWAKE COOPERATIVE WITH CARES, STILL FEEDING HIMSELF DINNER ATE 40% AND IS SNACKING ON HIS JANNY TREATS. REMAINS INCONTINENT OF URINE. NO BM THIS SHIFT. BP 99/65 BUT ASYMPTOMATIC. WBC DOWN TO 8.7 ORAL ANTIBIOTICS CONTINUE LUNGS CLEAR ABDOMEN SOFT FLAT WITH ACTIVE BS. CONTINUE TO MONITOR
[2020-10-23 05:51] LABS: HEMATOCRIT 38.9 % (42.0-52.0); HEMOGLOBIN 12.6 gm/dL (14.0-18.0); MCH 29.6 pg (26.0-34.0); MCHC 32.5 g/dL (28.0-37.0); MCV 91.1 fL (80.0-100.0); RBC 4.27 mil/uL (4.50-6.00); RDW 13.5 % (10.5-14.5); WBC 8.7 thou/uL (4.0-11.0)
[2020-10-23 06:12] LABS: CALCIUM 9.4 mg/dL (8.5-10.1); MAGNESIUM 2.1 mg/dL (1.8-2.4)
[2020-10-23 07:26] VITALS: BP 80/49
--- NOTE | 2020-10-23 08:36 | NUR ---
Nutritional status remains stable. Pt with fair appetite and variable intakes (0-100%, avg 52% x 5 days). No new wt noted since 10/01/20. Abdomen appears soft, flat, last BM 10/22 per RN report. No pressure ulcers noted. Pt conts to drink ensure enlives. Awaiting placement. Low nutrition risk, follow every 10-12 days.
[2020-10-23 09:31] VITALS: BP 102/50
--- NOTE | 2020-10-23 14:47 | NUR ---
Assumed pt care at 7am.Pt in bed sleeping on and off.Assisted pt with tray setup.Pt drank juice,milk and ensure with toast.Took meds with apple sauce. Assessment completed.vss but low bp noted.Dr Wright notified and order noted.Bp rechecked around 0900, Dr kingston put hold on ivf.Received call from pt's mom.Updates given.Will continue to monitor.
[2020-10-23 15:40] VITALS: BP 107/60
[2020-10-23 20:20] VITALS: BP 112/62
--- NOTE | 2020-10-24 07:18 | NUR ---
PROGRESS PT CALM AND COOPERATIVE HAD ICE CREAM AND THEN WENT TO SLEEP INCONTINENT OF URINE CONTINUE TO MONITOR SKIN INTAKE MAINTAIN SAFETY.
[2020-10-24 07:20] VITALS: BP 79/53
[2020-10-24 15:35] VITALS: BP 93/54
--- NOTE | 2020-10-24 16:33 | NUR ---
GUSTAVO T OFOLLOW UP ON REFERRALS SENT ON PT LATER LAST WEEK. STILL LOOKING TO FIND PLACEMENT FOR PT.
--- NOTE | 2020-10-24 16:53 | NUR ---
Assumed pt care at 7am.Assessment completed.Pt in bed sleeping on and off. Assisted with tray setup. Good appetite. Pt loved drinking liquid most especially ensure and juice.Dr Wright here,no new order noted.Will continue to monitor.
[2020-10-24 19:33] VITALS: BP 105/59
[2020-10-25 08:00] VITALS: BP 121/62
--- NOTE | 2020-10-25 08:31 | NUR ---
progress pt alert and active but not impulsive walked in halls with assist splept most of noc vss continue poc.
[2020-10-25 15:05] VITALS: BP 111/55
--- NOTE | 2020-10-25 19:20 | NUR ---
Assumed pt care at 7am.Pt in bed sleeping on and off as usual.Assessment completed.vss.Assisted pt with meals at breakfast and lunch.Fair appetite. Later this evening,pt has large loose stool and pericare given.No verbal c/o. Will continue to monitor.
[2020-10-25 20:02] VITALS: BP 95/66
--- NOTE | 2020-10-26 02:49 | NUR ---
PT CARE ASSUMED WITH PT IN BED.PT APPEARED TO BE IN NO ACUTE DISRESS.PT HAD A LARGE BM DURING SHIFT.PT INCONTINENT TO B/B.UP WITH STANDBY ASSIST.WILL CONTINUE TO MONITOR POC
[2020-10-26 07:54] VITALS: BP 126/67
--- NOTE | 2020-10-26 11:01 | NUR ---
Continue to obtain placement for patient.
--- NOTE | 2020-10-26 12:25 | NUR ---
ASSUMED PT CARE THIS AM. PT VSS, ALERT AND AWAKE. PT COOPERATIVE WITH STAFF. PT INCONTINENT, CHANGED AND BARRIER CREAM PUT ON. TOOK MED WELL. ENCOURAGED TO EAT AND HYDRATE. FREQUENT CHECKS BEING DONE.
[2020-10-26 15:08] VITALS: BP 115/64
[2020-10-26 19:26] VITALS: BP 75/26
--- NOTE | 2020-10-27 03:21 | NUR ---
Pt. rested quietly during the night when checked on during frequent rounds. Incontinent of urine and jeanie care given. Bed alarm is on.
[2020-10-27 07:49] VITALS: BP 102/59
--- NOTE | 2020-10-27 15:18 | NUR ---
ASSUMED CARE OF PT AT 0700. MINIMALLY INTERACTIVE BUT MOSTLY COOPERATIVE. BREATHING COMFORTABLY ON ROOM AIR. INCONTINENT. GOOD APPETITE. NO OTHER CHANGES TO REPORT. WCM.
[2020-10-27 19:55] VITALS: BP 108/74
--- NOTE | 2020-10-28 06:11 | NUR ---
Assumed pt care at 1900. VSS. No s/sx of pain. Alert to self and nonverbal. Incontinent of B&B this shift. Fall precautions in place,needs frequent reminders to call before getting up.Resting quietly in bed at this time w/o any distress.
[2020-10-28 07:45] VITALS: BP 118/85
[2020-10-28 09:41] LABS: ABSOLUTE NEUTROPHILS 6.3 thou/uL (1.4-8.2); BASOPHILS 0.8 % (0.0-2.0); EOSINOPHILS 3.4 % (0.0-3.0); HEMATOCRIT 46.2 % (42.0-52.0); LYMPHOCYTES 24.9 % (24.0-44.0); MCHC 32.4 g/dL (28.0-37.0); MCV 92.6 fL (80.0-100.0); MONOCYTES 7.5 % (1.0-8.0); POLYS 63.4 % (36.0-66.0); RBC 4.99 mil/uL (4.50-6.00); RDW 13.6 % (10.5-14.5); WBC 10.9 thou/uL (4.0-11.0)
[2020-10-28 09:51] LABS: ALBUMIN 3.4 g/dL (3.4-5.0); CREATININE 0.9 mg/dL (0.7-1.3); MAGNESIUM 2.4 mg/dL (1.8-2.4); POTASSIUM 4.5 mmol/L (3.5-5.1); TOTAL BILIRUBIN 0.3 mg/dL (0.2-1.0); TOTAL PROTEIN 8.1 g/dL (6.4-8.2)
[2020-10-28 11:35] LABS: PLATELET COUNT 280 thou/uL (150-400)
--- NOTE | 2020-10-28 13:55 | NUR ---
ASSUMED PT CARE THIS AM. PT IS ALERT AND AWAKE. PT COOPERATIVE WITH STAFF. INCONTINENT OF BOWEL AND BLADDER. NO IV. FREQUENT CHECKS. FALL PRECAUTIONS IN PLACE.
[2020-10-28 15:41] VITALS: BP 100/62
--- NOTE | 2020-10-29 04:20 | NUR ---
VSS-AFEBRILE. RESTLESS AND IMPULSIVE OVERNIGHT, CONTINUALLY ATTEMPTING TO CLIMB OUT OF BED WITHOUT ASSISTANCE. FINALLY ABLE TO SETTLE AFTER IM HALDOL AND ATIVAN. MUTIPLE SNACKS, AND GOOD ORAL HYDRATION OVERNIGHT. FALL PRECAUTIONS IN PLACE.
[2020-10-29 07:30] VITALS: BP 117/86
[2020-10-29 07:38] VITALS: BP 106/57
--- NOTE | 2020-10-29 08:23 | NUR ---
AT 0530 THIS SHIFT, PATIENT WAS IN BED WITH ALL FALL PRECAUTIONS IN PLACE. STAFF WAS IN ANOTHER ROOM POST CODE BLUE, AND TENDING TO OTHER PATIENTS. BED ALARM OF THIS PATIENT WAS ACTIVATED, IMMEDIATELY WENT TO ROOM AND WITNESSED PATIENT CLIMBING OUT OF BED. PATIENT STOOD UP, AND JUST NURSE WAS TO REACH HIM, HE FELL TO THE GROUND, AND LANDED ON HIS BUTTOCKS. NO INJURIES NOTED. URIAH BIGGS WAS NOTIFIED, WELL ATTEMPTED TO NOTIFY PATIENTS MOTHER WITH NO ANSWER. PATIENT IS NOW IN HIS BED WITH ALL FALL PRECAUTIONS IN PLACE, AND A SITTER AT THE BEDSIDE.
--- NOTE | 2020-10-29 19:29 | NUR ---
PT AWAKE NON VERBAL. VERY IMPULSIVE, AND AGITATED TODAY. TODAY. CLIMBING TO THE BACK OF THE BED AND OVER THE SIDE RAILS TO GET OUT. PRN MEDICATIONS GIVEN WITHOUT ANY RELEIF. PT PLACED ON ONE TO ONE FOR SAFTEY. PT DID TAKE HIS MEDICATIONS, BUT ONLY ATE A VERY SMALL PORTIONS OF ALL MEALS.
[2020-10-29 20:24] VITALS: BP 125/83
[2020-10-30 07:44] VITALS: BP 138/72
--- NOTE | 2020-10-30 10:16 | NUR ---
Nutritional status remains stable. Pt with fair appetite and variable intakes, averaging 74% at present. No new wt noted since 10/01/20. Abd appears soft, flat, with audible BS per report. Last BM 10/27/20. No pressure ulcers noted. Awaiting placement. Low nutrition risk. Follow every 10-12 days.
--- NOTE | 2020-10-30 18:13 | NUR ---
Patient ate well for breakfast and lunch, but sleeping right now, will let him have his dinner after he wakes up.
[2020-10-31 00:07] VITALS: BP 108/83
--- NOTE | 2020-10-31 03:02 | NUR ---
PT CARE ASSUMED WITH PT IN BED AND SITTER.PT WAS SLEEPING MOST PART OF THE SHIFT.PT APPEAR TO BE IN NO ACUTE DISTRESS.WILL CONTINUE TO MONITOR
[2020-10-31 08:56] VITALS: BP 104/72
--- NOTE | 2020-10-31 13:59 | NUR ---
PT ALERT AND SLEEPING MOST OF MORINING. PT VSS, NO APPARENT PAIN. BED ALARM ON. AWAITING PLACEMENT FOR PATIENT.
--- NOTE | 2020-10-31 14:03 | NUR ---
1 DATA ABSTRACTOR, 1 DINAMAP MACHINE, 16 PTS
[2020-10-31 15:59] VITALS: BP 127/89
[2020-10-31 19:22] VITALS: BP 148/100
[2020-10-31 20:45] VITALS: BP 131/85
--- NOTE | 2020-11-01 02:52 | NUR ---
PT CARE ASSUMED WITH PT INBED SLEEPING.PT SLEPT TILL THIS TIME OF THE SHIFT.BLOOD PRESSURE ELEVATED AND HEART RATE 137.VITAL SIGNS REPORTED TO PHILOMENA SPANN.WILL CONTINUE TO MONITOR
[2020-11-01 06:21] LABS: HEMATOCRIT 46.4 % (42.0-52.0); HEMOGLOBIN 15.4 gm/dL (14.0-18.0); MCH 29.9 pg (26.0-34.0); MCHC 33.1 g/dL (28.0-37.0); MCV 90.3 fL (80.0-100.0); RBC 5.13 mil/uL (4.50-6.00); RDW 13.9 % (10.5-14.5); WBC 8.7 thou/uL (4.0-11.0)
[2020-11-01 06:31] LABS: CALCIUM 10.3 mg/dL (8.5-10.1); CREATININE 1.3 mg/dL (0.7-1.3); POTASSIUM 3.9 mmol/L (3.5-5.1)
[2020-11-01 08:16] VITALS: BP 133/90
--- NOTE | 2020-11-01 15:26 | NUR ---
PATIENT HAS BEEN IN BED SLEPING OFF/ON, LCTA, RESPIRATION EVEN/UNLABORED, NO SOA/CYANOSIS NOTED. BS+X4, ABD SOFT, NON-TENDER TO TOUCH. PATIENT IS EATING MEALS, AND DRINKING FLUID POORLY, ABLE TO FEED SELF, REFUSING FOR STAFF TO ASSIST WITH FEEDING. IV SITE ACCESSED BY IV TEAM, PER DR. MOY'S ORDER. IV FLUID STARTED, PATIENT PULLED IV OUT. DR. MOY NOTIFIED, SHE STATES TO KEEP IV FLUID OFF, AND ENCOURAGE FLUID INTAKE. FLUID ENCOURAGED, NO SIGN OF ACUTE DISTRESS NOTED AT THIS TIME, FALL PRECAUTION IN PLACE, CALL LIGHT IN REACH, WILL MONITOR FOR SAFETY.
[2020-11-01 20:02] VITALS: BP 114/79
--- NOTE | 2020-11-02 02:33 | NUR ---
ASSUMED CARE OF PT AT 1900HRS. PT IS DROWSY THIS SHIFT AND IS NON-VERBAL AT BASELINE. FALL PRECAUTION IN PLACE. IVF CONTINUED. PT CAN BE IMPULSIVE AT TIME BUT HAS BEEN CALM THUS FAR. PT DID NOT TAKE HS MEDS. VSS AND NO S/S OF ACCUTE DISTRESSS. WILL CONTINUE TO MONITOR.
[2020-11-02 07:15] VITALS: BP 151/82
--- NOTE | 2020-11-02 12:03 | NUR ---
CM RECEIVED PC FROM EDY WITH [employer] THIS AM. SHE INDICATED THAT THEY WERE DISCUSSING PT'S CASE DURING ROUNDS THIS DAY. CM PROVIDED UPDATE TO HER. CARE TEAM INDICATED THAT PT HAS TEMP OF 100.5 THIS AM. CHEST XRAY, UA, AND REPEAT COVID TEST DONE. AWAITNG RESULTS. PT'S MOTHER WAS AT BEDSIDE THIS AM VISITING. CM SPOKE WITH HER SHE WAS ASKED TO LEAVE PENDING COVID TEST RESULT. CM TO FOLLOW INDICATED WITH DC PLANNING.
[2020-11-02 12:36] LABS: URINE BILIRUBIN NEGATIVE (Negative); URINE BLOOD NEGATIVE (Negative); URINE CLARITY CLOUDY; URINE COLOR YELLOW; URINE GLUCOSE-RANDOM* NEGATIVE (Negative); URINE KETONES 1+ (Negative); URINE LEUKOCYTES-REFLEX NEGATIVE (Negative); URINE NITRITE-REFLEX NEGATIVE (Negative); URINE PROTEIN (DIPSTICK) NEGATIVE (Negative); URINE SPECIFIC GRAVITY >= 1.030 (1.005-1.035); URINE UROBILINOGEN 0.2 E.U./dl (0.2-1.0)
[2020-11-02 15:35] VITALS: BP 120/69
[2020-11-02 18:29] LABS: HEMATOCRIT 43.5 % (42.0-52.0); HEMOGLOBIN 14.2 gm/dL (14.0-18.0); MCHC 32.7 g/dL (28.0-37.0); MCV 91.8 fL (80.0-100.0); RBC 4.74 mil/uL (4.50-6.00); RDW 13.5 % (10.5-14.5)
[2020-11-02 18:37] LABS: CALCIUM 9.5 mg/dL (8.5-10.1); CREATININE 1.3 mg/dL (0.7-1.3); POTASSIUM 3.7 mmol/L (3.5-5.1)
[2020-11-02 19:40] VITALS: BP 121/77
--- NOTE | 2020-11-02 20:03 | NUR ---
Assumed pt care this am, pt was lethargic and presented with chills. Pt was running a fever, medications given as per emar. Fever resolved until 16:52 temp at 38.3, ND informed md, medications and cold sponge bath given, temp was 36.1 at 1820. IV fluids maintained, frequent jeanie care given due to incontinence. Covid test negative, UA sent. Mother at the bedside, was informed of the situation and asked to leave until test had returned. Frequent visits and sponge baths given to lover temperature. POC followed, night nurse informed. Pt refused all meals and fluids.
[2020-11-03 07:34] VITALS: BP 114/69
--- NOTE | 2020-11-03 16:33 | NUR ---
Patient pulled out IV and tried to pull out the new IV the staff just put in. Dr. Lock paged to see if the staff can put a restraint on the patient. awaiting response.
[2020-11-03 16:34] LABS: CALCIUM 8.8 mg/dL (8.5-10.1); CREATININE 1.1 mg/dL (0.7-1.3); POTASSIUM 3.4 mmol/L (3.5-5.1)
[2020-11-03 16:39] LABS: ALBUMIN 3.1 g/dL (3.4-5.0); DIRECT BILIRUBIN 0.1 mg/dL (<0.1-0.2); TOTAL BILIRUBIN 0.3 mg/dL (0.2-1.0)
[2020-11-03 20:00] VITALS: BP 109/82
--- NOTE | 2020-11-04 06:25 | NUR ---
ASSUMED PT'S CARE BEGINNING OF THIS PM SHIFT. PT WAS AWAKE. SLEPT OFF AND ON. MEDS GIVEN PER EMAR. CONDOM CATHETER FOR VOIDING. FALL PRECAUTION IN PLACE. IVF TO [facility]ANITO. MOTHER UPDATED ON CARE. PT OFFERED DRINKS INTERVALLY. RIGHT HAND RESTRAINT STILL IN PLACE. WILL CONTINUE TO MOINTOR.
[2020-11-04 07:36] VITALS: BP 116/63
[2020-11-04 15:45] VITALS: BP 121/68
[2020-11-04 15:49] VITALS: BP 116/47
--- NOTE | 2020-11-04 19:08 | NUR ---
Assumed pt care this am, initially on restraints but removed in the pm, q2 assessments done. Appetite is still poor but is now starting to feed himself and drink more fluids. MOre alert today, had a liquid stool this pm. POC followed with no signs of distress noted. Bed bath done. Small frequent feedings and hydration garcia through out the day. Endorsed to the night nurse.
[2020-11-04 20:34] VITALS: BP 122/79
--- NOTE | 2020-11-05 06:02 | NUR ---
Assumed pt care at 1900. Pt was asleep at beginning of shift but woke up later through the shift;assisited with ensure w/o any problems. PCR/UA obtained via clean catch w/o any problems. Pt watching TV at [facility] for sometimes then went back to sleep. Incontinent of bladder,pericare,zguard applied. PIV in place on LUE with fluids infusing w/o any problems noted. Fall precautions in place,will continue to monitor pt.
[2020-11-05 07:30] VITALS: BP 116/75
[2020-11-05 10:16] LABS: CALCIUM 9.3 mg/dL (8.5-10.1); CREATININE 0.9 mg/dL (0.7-1.3); POTASSIUM 3.2 mmol/L (3.5-5.1)
[2020-11-05 15:20] VITALS: BP 128/85
--- NOTE | 2020-11-05 17:11 | NUR ---
Assumed pt care at 7am.Pt in bed very sleepy but arousable.Assessment completed,vss.Am meds given with breakfast. Pt ate 30% of the meal but drank ensure,juice and milk.Dr Lock here,order noted.Consult called to Dr Sims. Pt mom here,updates given.Mom in room at present assisting pt with dinner. No verbal c/o,Fall bundle in place. Will continue to monitor.
[2020-11-05 19:35] VITALS: BP 124/80
--- NOTE | 2020-11-06 03:48 | NUR ---
ASSUMED CARE OF PT AT 1900HRS. PT ALERT BUT IS NON VERBAL. FALL PRECAUTION IN PLACE. IVF CONTINUED. CONDOM CATH PLACED TO HELP MANAGE INCONTINENCE. PT APPEARS TO BE COMFORTABLE. MILD TEMP NOTED AND PRN TYLENOL PROVIDED. PT WAS ABLE TO SLEEP PART OF THE SHIFT. WILL CONTINUE TO MONITOR.
--- NOTE | 2020-11-06 07:17 | HC ---
[facility] [address] CONSULTATION Name: BIRD CASILALS Room #: 451-P ADM IN .R.#: [id number] Admission: 06/20/20 Attend Phys: Bird Abbasi MD Discharge: Date of : 72 Report #: [id number] THIS REPORT FOR: cc: Clara Yañez MD,Clara Biswas,Arvind Villalba MD ~ DATE OF SERVICE: 11/03/2020 INFECTIOUS DISEASE CONSULTATION REASON FOR EVALUATION: Nosocomial fever. HISTORY OF PRESENT ILLNESS: Chart reviewed, patient examined. This is a 49-year-old gentleman with autism. He has quite severe relative disability, who was found back in May, was felt to have heat prostration and was admitted. He has been hospitalized since that time. He has had periods of agitation apparently. Several episodes of fevers led to blood cultures, all of which have been sterile. Did have a urine culture back on 10/08/2020. Apparently, he was treated for UTI per the staff since he is unable to give any history. Apparently, he has had fevers. It has been associated with shaking. He reports previous to that had difficulty with swallowing and required maneuvers to help him clear it. On his admission, he was found to have patchy interstitial infiltrates. Intermittent chest x-rays have been done in the interim including most recently yesterday, suggest they are improved. He was empirically placed on ceftriaxone and azithromycin. Had earlier been on Augmentin in the month of September as well as Zosyn. I believe during the antibiotic course, he had recorded T-max of 101. More recently, this morning, it was 98 with otherwise stable hemodynamics. Saturation 96% on room air. ALLERGIES: TREE NUTS. CURRENT MEDICATIONS: Include divalproex, azithromycin, ceftriaxone, loratadine, Haldol, lorazepam, pantoprazole, quetiapine, and p.r.n. ondansetron. PAST MEDICAL HISTORY: Autism, fairly severe on the spectrum; prediabetic; hyperlipidemia. SOCIAL HISTORY: Apparently, he smoked cigarettes prior to coming in. No illicit drug use. No ethanol. FAMILY HISTORY: Noncontributory. REVIEW OF SYSTEMS: Not obtainable. PHYSICAL EXAMINATION: [address] [address] CONSULTATION Name: BIRD CASILLAS Room #: 451-P [facility].#: [id number] Admission: 06/20/20 Attend Phys: Bird Abbasi MD Discharge: Date of : 72 Report #: [id number] GENERAL: Appears chronically ill and undernourished. He is somewhat tremulous. His eyes are partially opened. He makes no effort to engage or communicate. He is lying in a supine position, is mildly rigid. Appears undernourished. VITAL SIGNS: Temperature 98, pulse 78, respirations 20, blood pressure 114/69. SKIN: Warm, dry, no rashes. NECK: Appears to be supple. Extraocular muscles intact. LUNGS: Diminished breath sounds. Few scattered crackles. HEART: Regular. I do not appreciate a murmur. ABDOMEN: Soft, no apparent tenderness, no peritoneal signs. GENITOURINARY AND RECTAL: Deferred. LABORATORY DATA: Blood cultures collected on the 7th are sterile thus far. Coronavirus testing was negative. He has had multiple tests throughout the hospitalization, all of which have been negative. Lactic acid 1.5. Valproic acid 7. Electrolytes: Sodium 148, potassium 3.7, chloride 110, bicarbonate 27, anion gap of 11, BUN and creatinine 29 and 1.3, glucose of 135. CBC: White count of 9.0, H and H 14.2 and 43.5, platelets of 338. Urinalysis is unremarkable. Chest x-ray showed the diminished bilateral diffuse interstitial opacities suggest resolving interstitial pneumonitis. ASSESSMENT: Nosocomial fevers. The patient apparently ____ is at risk for aspiration given his difficulty swallowing. Does have autism as well. I do not see any other focus of pyogenic infection, certainly noninfectious causes or viral etiology is not excluded. We will do additional testing. I think the antibiotic regimen is reasonable. We will see if the temperature curve trend continues to stay down ____ if there is any forthcoming sputum ____ intervention see how he does clinically. Difficult to ascertain what his baseline is. <ELECTRONICALLY SIGNED> By: Arvind Biswas MD 11/06/20 0717 [id number] Arvind Biswas MD /nt
[2020-11-06 07:52] VITALS: BP 136/80
--- NOTE | 2020-11-06 11:56 | NUR ---
ASSUMED PT CARE THIS AM. PT AWAKE AND ALERT. TREMORS NOTED INTERMITTENTLY. MEDS TAKEN WELL. MALE EXTERNAL CATHETER IN PLACE. IV PATENT, MEDS INFUSED WELL. FALL PRECAUTIONS IN PLACE.
[2020-11-06 15:20] VITALS: BP 110/69
--- NOTE | 2020-11-06 15:57 | NUR ---
CM HAD TELE CONFERENCE WITH [facility] REPS THIS AFTERNOON. IT WAS INDICATED THAT THEY WILL ATTEMPT TO ASSIST IN FINDING FACILITIES THAT MAY BE ABLE TO REVIEW REFERRALS FOR POSSIBLE ADMISSION. SENT REFERRALS TO [facility]. OP CENTER DECLINED. [facility] INDICATED THEY CAN'T ACCEPT BUT THEY ARE SENDING REFERRAL TO THEIR SISTER FACILITY [facility]. CM TO FOLLOW INDICATED WITH DC PLANNING.
[2020-11-06 19:32] VITALS: BP 129/84
--- NOTE | 2020-11-07 06:03 | NUR ---
Assumed pt care at 1900. Alert to self,drowsy. VSS. No s/sx of pain. Incontinent of B&B,condom catheter in place with light yellow urine noted. IV on LUE saline locked. Fall precautions in place, resting quietly w/o any distress noted.Will continue to monitor pt.
[2020-11-07 08:30] VITALS: BP 121/87
--- NOTE | 2020-11-07 15:06 | NUR ---
PT AWAKE BUT NON VERBAL. VSS. TOLERATES MEDS AND MEALS. PT DOES NOT APPEAR TO BE IN ANY PAIN. WAITING ON PLACEMENT. WILL CONTINUE TO MONITOR.
[2020-11-07 15:17] VITALS: BP 133/92
[2020-11-07 19:27] VITALS: BP 122/75
[2020-11-08 07:13] VITALS: BP 94/58
--- NOTE | 2020-11-08 08:06 | NUR ---
progress pt looks better acting more like himself picking at iv until he pulled it out not trying to get oob tonight eating well had 2 puddings and juice
--- NOTE | 2020-11-08 12:20 | NUR ---
Received awake on bed. Due medications given as prescribed, crushed and mixed with apple sauce. Pt drowsy but rousable. On MS, not on telemetry; no complains and signs of chest pain, crushing sensation and heaviness. On room air. Vital signs stable. On mechanically altered chopped diet; assisted and encouraged in eating and drinking; no nausea, no vomiting and no abdominal pain noted. Falls bundle in place. Pt pulled out his IV this AM before shift changed; tried to re-insert but pt pulled it right away even if wrapped with coban; Dr Abbasi informed and aware, will switch IV meds to PO. To continue monitoring patient. Incontinent of bowel and bladder, checked frequently and changed as needed. Able to turn self in bed. Had a bowel movement today, charted. Pt visited by his mother today, update given.
--- NOTE | 2020-11-08 15:21 | NUR ---
CM CALLED AND LEFT VM WITH MAHESH IN ADMISSIONS AT [facility]. NO RESPONSE OF THIS NOTE. CM MET WITH PT'S MOTHER AT BEDSIDE THIS AM AND NOTIFEID HER THAT [facility] AGAIN DECLINED ADMISSION BUT THAT [facility] WAS REVIEWING. CM PROVIDED HER LIST OF FACILITIES [facility] HAD SUGGESTED. CM INDICATED THAT REFERRALS WOULD BE SENT TO THOSE FACILITIES. CM FAXED REFERRALS TO: [facility] [facility]
[2020-11-08 16:07] VITALS: BP 107/49
[2020-11-08 19:59] VITALS: BP 112/62
--- NOTE | 2020-11-09 05:10 | NUR ---
11-08-20 CARE TRANSFERRED 1914. PT AA, NONVERBAL, VSS, RR EVEN AND NONLABORED ON RA. PT HAS REDNESS BI-LAT HIPS AND BUTTOCKS. PT Q2H REPOSITION FOR COMFORT AND BED ADJUSTED FOR COMFORT. ZERO S/S OF ACUTE DISTRESS, PT WILL CONTINUE TO BE MONITOR PER PROTOCOL.
--- NOTE | 2020-11-09 10:32 | NUR ---
Nutrition Note: Pt status remains stable, awaiting placement. Dislikes food, is a picky eater per RN. Does like supplements being sent and eats them well. No new wt to assess since 10/01/20, requested new wt from RN. Pt remains low nutrition risk with current interventions in place.
--- NOTE | 2020-11-09 12:34 | NUR ---
ASSUMED PT CARE THIS AM. PT AWAKE AND ALERT. NO IV PRESENT. HYDRATION AND FOOD ENCOURAGED. MEDICATIONS TAKEN WITH MEAL. PT REMAINS INCONTINENT.
[2020-11-09 15:10] VITALS: BP 110/65
[2020-11-09 15:57] VITALS: BP 123/66
[2020-11-09 19:26] VITALS: BP 122/69
--- NOTE | 2020-11-10 02:39 | NUR ---
ASSUMED CARE OF PT AT 1900HRS. PT IS ALERT BUT IS NON-VERBAL. FALL PRECAUTION IN PLACE. ASSESSMENT CHARTED. PT IS INCONTINENT. PT WAS ABLE TO TAKE HS MEDS WITH APPLESAUCE. PT WAS ABLE TO GET COMFORTABLE AND SLEEP PART OF THE SHIFT. VSS AND NO S/S OF ACUTE DISTRESS. WILL CONTINUE TO MONITOR.
[2020-11-10 07:48] VITALS: BP 90/63
--- NOTE | 2020-11-10 12:21 | NUR ---
ASSUMED PT CARE THIS AM. PT ALERT, EATING MEALS. PT REMAINS INCONTINENT. BOWEL MOVEMENT TODAY. TOOK MEDS WELL THIS AM. FALL PRECAUTIONS IN PLACE.
--- NOTE | 2020-11-10 15:12 | NUR ---
GUSTAVO RECIEVED PC FROM MAN IN ADMISSIONS AT [facility] IN [place], [place] INDICATING THAT THEY CAN ACCEPT PT. THEY HAVE A SECURED UNIT. MAN FOUND A PCP TO FOLLOW PT'S CARE IN THE COMMUNITY THERE. CM FAXED OVER MRI REPORT FROM [facility] PER THEIR REQUEST. CM ATTAMPTED PT MOTHER TWICE TO NOTIFY HER CM LEFT VM WITH THE INFO ABOVE. IT IS ANTICPATED THAT THEY WILL BE ABLE TO ACCEPT PT FRIDAY. CM TO FOLLOW INDICATED WITH DC PLANNING.
[2020-11-10 16:30] VITALS: BP 102/68
--- NOTE | 2020-11-11 03:59 | NUR ---
Pt. rested quietly at intervals during the night when checked on during frequent rounds. He is non-verbal. Incontinent of urine and jeanie care given. Bed alarm is on.
[2020-11-11 07:44] VITALS: BP 105/67
--- NOTE | 2020-11-11 15:10 | NUR ---
Assumed pt care at 7am.Pt in bed sleeping on and off.Assessment completed.vss. Pt tolerated meds and but refused breakfast.Dr Abbasi here,order noted.Pt's mom here,updates given.Pt incontinent of b&b.No verbal c/o.Will continue to monitor.
[2020-11-11 16:16] VITALS: BP 95/67
[2020-11-11 19:18] VITALS: BP 98/65
--- NOTE | 2020-11-12 03:21 | NUR ---
Pt. rested quietly at intervals during the night when checked on during frequent rounds. He is alert at times, but non-verbal. Incontinent of bowel and bladder. Kinza care given. Bed alarm is on.
[2020-11-12 07:46] VITALS: BP 133/72
--- NOTE | 2020-11-12 11:07 | NUR ---
Received awake on bed. Due medications given as prescribed, crushed and mixed with pudding. On MS, not on telemetry; no complains and signs of chest pain, crushing sensation and heaviness. On room air. Vital signs stable. Incontinent of bowel and bladder, checked frequently and changed as needed. Falls bundle in place. No IV noted, physician aware and informed. On Mechanically altered diet- assisted and encouraged in eating and drinking; no nausea, no vomiting and no abdominal pain noted; snacks offered. Assisted in ADLs. Still a/w placement. To continue monitoring patient.
[2020-11-12 14:36] VITALS: BP 122/75
[2020-11-12 20:24] VITALS: BP 101/72
--- NOTE | 2020-11-13 08:01 | NUR ---
ASSUMED CARE OF PT AT 1900HRS. PT IS ALERT BUT NON VERBAL. NEEDS MUST BE ANTICIPATED. PT IS INCT AND NEEDED TO BE CLEANED SEVERAL TIMES. PT APPEARS COMFORTABLE. PT WAS ABLE TO SLEEP PART OF THE SHIFT. VSS AND NO S/S OF ACUTE DISTRESS. REPORT FIVEN TO ONCOMING RN.
[2020-11-13 08:07] VITALS: BP 106/72
--- NOTE | 2020-11-13 14:32 | NUR ---
GUSTAVO FOLLOWED UP WITH MAN IN ADMISSIONS AT [facility] AND THEY INDICATED THAT THEY CAN ACCEPT PT TODAY. ORDERS TO BE FAXED TO THEM ONCE COMPLETED WELL REPEAT COVID. CM NOTIFIED PT'S MOTHER GUARDIAN IN PERSON THIS AM AND OVER THE PHONE THIS AFTERNOON. SHE IS AWARE. TRANSPORT VIA FACILITY WILL ARRIVE AROUND 1600. NO OTHER CM INTRVENTION INDICATED. CASE CLOSED.
[2020-11-13] MEDS ORDERED: PROTONIX 20 MG20 M1 PO (15:03)
[2020-11-13] MEDS ORDERED: CLARITIN10 M2 PO (15:03)
[2020-11-13] MEDS ORDERED: ACETAMINOPHEN325 M1 PO (15:03)
[2020-11-13] MEDS ORDERED: DIVALPROEX SOD500 M1 PO (15:03)
[2020-11-13] MEDS ORDERED: MIRALAX17 GM PO (15:03)
[2020-11-13] MEDS ORDERED: LORAZEPAM 0.50.5 MG PO (15:03)
[2020-11-13] MEDS ORDERED: PRENATAL PO (15:03)
[2020-11-13] MEDS ORDERED: SEROQUEL 25 MG25 M1 PO (15:03)
[2020-11-13 16:54] VITALS: BP 121/63
--- NOTE | 2020-11-13 19:14 | NUR ---
Assumed pt care at 7am.Assessment completed.vss.Pt tolerated meds and diet. DR Abbasi here dc order noted.piano case maker arranged for transport and notified pt's mom.Report off to odette at [facility].At 1709,pt dc per wc with all his personal belongings accompanied by transporter to [facility].
== END 2020-11-13 17:18 | DRG 377 ==
LOC: ER 19:13 → 4W 21:31 → EROBS 21:31 → 3W 06-21 19:33 → 4W 06-22 20:01
PROVIDERS: Emergency Medicine; Hospitalist; Internal Medicine; Nurse Practitioner; Nurse Practitioner Family; Psychiatry & Neurology Psychiatry; Specialist; ADMIT Internal Medicine; ATTEND Internal Medicine
PROC: 0DJ08ZZ Inspection of Upper Intestinal Tract, Via Natural or Artificial Opening Endoscopic (ICD-10-PCS; principal; 2020-06-23)
DX: K92.1 Melena (principal); R65.11 Systemic inflammatory response syndrome (SIRS) of non-infectious origin with acute organ dysfunction; G93.41 Metabolic encephalopathy; N17.0 Acute kidney failure with tubular necrosis; J18.9 Pneumonia, unspecified organism; T67.01XA Heatstroke and sunstroke, initial encounter; E87.0 Hyperosmolality and hypernatremia; F84.0 Autistic disorder; F20.2 Catatonic schizophrenia; N39.0 Urinary tract infection, site not specified; E46 Unspecified protein-calorie malnutrition; D62 Acute posthemorrhagic anemia; F17.210 Nicotine dependence, cigarettes, uncomplicated; E86.0 Dehydration; E78.5 Hyperlipidemia, unspecified; T67.3XXA Heat exhaustion, anhydrotic, initial encounter; E86.1 Hypovolemia; K44.9 Diaphragmatic hernia without obstruction or gangrene; E87.6 Hypokalemia; R41.9 Unspecified symptoms and signs involving cognitive functions and awareness; F03.90 Unspecified dementia, unspecified severity, without behavioral disturbance, psychotic disturbance, mood disturbance, and anxiety; K59.00 Constipation, unspecified; Z20.828 Contact with and (suspected) exposure to other viral communicable diseases; Z79.899 Other long term (current) drug therapy; Z68.21 Body mass index [BMI] 21.0-21.9, adult; X30.XXXA Exposure to excessive natural heat, initial encounter; Y93.89 Activity, other specified; Y92.89 Other specified places as the place of occurrence of the external cause; Y99.8 Other external cause status
CPT/HCPCS: 10047; 10779; 62110; 62900; 70005